=== PATIENT | female | born 1960 | race Caucasian/White ===

== ENCOUNTER 2021-01-22 18:33 | Inpatient (IN) | payer OTHER, MEDICAID, SELFPAY ==
--- NOTE | 2021-01-22 20:30 | DI.MRI.S_ITS ---
PROCEDURE: MR STROKE Pre- and post-contrast brain MRI, non-contrast brain MR angiogram, pre- and postcontrast neck MR angiogram INDICATIONS: CVA TECHNIQUE: Brain: Noncontrast axial T1 spin echo, axial T2 fast spin echo, sagittal and axial FLAIR, coronal T2 fast spin echo, axial gradient echo, axial diffusion and ADC through the brain. After the administration of contrast, axial 3D VIBE of the cranial vasculature and brain. Brain MRA: Non-contrast 3-D time of flight MR angiogram, with multiple ftmslfw-sexzpxxqw-zwlmfnlycl (MIP) reformats performed. Neck MRA: Axial and sagittal TruFISP through the neck. Coronal dynamic MR angiogram during administration of contrast in the arterial and venous phases, with 3-dimenstional wrsbtkc-agiwpbnzz-doyotdzyrm (MIP) reformats constructed from subtraction images. COMPARISON: None. FINDINGS: Image quality: Excellent. BRAIN: CSF spaces: Ventricles are normal in size and shape. Basal cisterns are patent. No extra-axial fluid collections. Brain: No intracranial bleeds or mass effects. Cohen-white matter interface is normal. Abnormal diffusion-weighted signal can be seen involving the deep white matter of the right frontal lobe, as on series 26, image 65. There is associated dark signal seen on the ADC map. Just anterior to this acute or subacute infarct, there is a remote infarction seen, as on series 16, image 15. Brainstem appears normal. Normal intravascular flow voids are present. No abnormal intracranial enhancement. Skull and face: Calvarial marrow signal is normal. Orbits appear normal. Sinuses: Mild mucosal thickening is seen within the inferior maxillary sinuses. Sinuses and mastoids are otherwise clear. Bilateral damian bullosa can be seen. There is moderate rightward nasal septal deviation. BRAIN MR ANGIOGRAM: Anterior circulation: Intracranial internal carotid arteries are normal in size and enhancement. The flow within the paired anterior cerebral arteries is normal and symmetric. There is focal narrowing seen involving the distal right M1 segment, at least 80%. The flow within the middle cerebral arteries is otherwise normal and symmetric. The anterior communicating artery is not well seen. No stenoses, occlusions, or aneurysms. Posterior circulation: The visualized portions of the vertebral arteries demonstrate normal caliber, and join to form a normal appearing basilar artery. The flow within the posterior cerebral arteries is normal and symmetric. No stenoses, occlusions, or aneurysms. NECK MR ANGIOGRAM: Carotids: Great vessels demonstrate a conventional anatomy as they arise from the aortic arch. The origins of the common carotid arteries appear patent. The calibers and courses of both common carotid arteries are normal. The bifurcation regions demonstrate atherosclerotic irregularity. 40-50% narrowing can be seen involving the proximal internal carotid arteries. Posterior circulation: The origins of the vertebral arteries appear patent. More superior portions of both vertebral arteries demonstrate normal course and caliber, and join to form a normal appearing basilar artery. Miscellaneous: Subclavian arteries appear patent. Pre-contrast images through the neck show no soft tissue abnormalities. IMPRESSION: BRAIN MRI: There is an acute or subacute infarction seen involving the deep white matter of the right frontal lobe posteriorly. A chronic infarction can be seen just anterior to this infarction. BRAIN MR ANGIOGRAM: Focal narrowing can be seen involving the distal right M1 segment. NECK MR ANGIOGRAM: Within the arteries of the neck, no hemodynamically significant stenosis can be seen. 40-50% narrowing can be seen involving both proximal internal carotid arteries. Dictated by: Brian Saldaña M.D. on 01/23/2021 at 8:07 Approved by: Brian Saldaña M.D. on 01/23/2021 at 8:14
[2021-01-22 20:34] VITALS: BMI 30.9
--- NOTE | 2021-01-22 20:35 | DI.ECHO.S_ITS ---
[place] +---------+ Hospital +---------+ : : [address] : : : : [id number] : : : : Phone: [phone]+ Echocardiogram Report + + :Name: AZAR WARD Study Date: 01/23/2021 Height: 62 in : :[facility] ReadingLocation: Weight: 169 lb : : Gender: Female BSA: 1.8 m2 : :: 1960 Age: 60 yrs BP: 167/100 mmHg: :Reason For Study: CVA : :Ordering Physician: Jenifer : :Hospitalist Performed By: Trice Page : :Referring: LAURIE SANTANA : + + Interpretation Summary The left ventricle is normal in size and wall thickness. The ejection fraction is estimated to be 60-65%. Diastolic parameters suggest a relaxation abnormality of the left ventricle, consistent with probable normal filling pressures. The right ventricle is severely dilated. Right ventricular systolic function is borderline reduced. The interventricular septum is flattened, consistent with a right ventricular pressure/volume condition. The right ventricular systolic pressure is estimated to be at least 52 mmHg based on an estimated right atrial pressure of 3 mm Hg. The left atrial size is normal. The right atrium is moderately dilated. There is no significant valvular heart disease. The ascending aorta is mildly enlarged. Procedure: A two-dimensional transthoracic echocardiogram with color flow and Doppler was performed. The study quality was technically adequate. A saline contrast injection was performed to assess for cardiac shunting. A contrast injection of Definity was performed to improve assessment of LV function. There is no prior echocardiogram noted for this patient. The patient was in normal sinus rhythm during the exam. Left Ventricle: The left ventricle is normal in size and wall thickness. The ejection fraction is estimated to be 60-65%. The interventricular septum is flattened, consistent with a right ventricular pressure/volume condition. Diastolic parameters suggest a relaxation abnormality of the left ventricle, consistent with probable normal filling pressures. Right Ventricle: The right ventricle is severely dilated. Right ventricular systolic function is borderline reduced. Atria: The left atrial size is normal. The right atrium is moderately dilated. Doppler interrogation and injection of saline echo contrast shows no evidence for an interatrial shunt. Mitral Valve: The mitral valve is normal in structure and function. There is trace mitral regurgitation. Aortic Valve: The aortic valve is trileaflet. The aortic valve opens well. No aortic regurgitation is present. Tricuspid Valve: The tricuspid valve is normal. There is trace tricuspid regurgitation. The right ventricular systolic pressure is estimated to be at least 52 mmHg based on an estimated right atrial pressure of 3 mm Hg. Pulmonic Valve: The pulmonic valve is not well seen, but is grossly normal. There is trace pulmonic regurgitation. There is no significant valvular heart disease. Great Vessels: The aortic root is normal size. The ascending aorta is mildly enlarged. The pulmonary artery is not well visualized, but is probably normal size. The IVC is of normal diameter and collapses greater than 50% with a sniff. This suggests a low right atrial pressure of 3 mm Hg. Pericardium/ Pleura There is a trivial pericardial effusion noted. There is no pleural effusion. MMode/2D Measurements & Calculations LVIDd: 4.0 cm LVOT diam: 2.0 cm LVIDs: 3.3 cm Ao root diam: 3.5 cm FS: 17.7 % asc Aorta Diam: 3.7 cm IVSd: 0.78 cm LVPWd: 0.79 cm LV diallo. diameter/BSA (cm/m^2): 2.2 LV sys. diameter/BSA (cm/m^2): 1.8 LA A2 area: 16.8 cm2 RA long axis: 5.0 cm LA A4 area: 17.5 cm2 RA area: 20.6 cm2 LA length (vol): 5.1 cm RA vol: 72.1 ml LA vol: 48.5 ml RA : 40.5 ml/m2 LA vol index: 27.3 ml/m2 IVC diam: 1.5 cm RVD1 (basal): 4.5 cm TAPSE: 1.6 cm Doppler Measurements & Calculations Ao V2 max: 99.3 cm/sec LVOT Max Vladimir: 53.1 cm/sec Ao V2 mean: 68.2 cm/sec LV V1 max P.1 mmHg Ao max P.9 mmHg LV V1 VTI: 10.4 cm Ao mean P.0 mmHg DIVINE(I,D): 1.9 cm2 Ao V2 VTI: 16.0 cm DIVINE(V,D): 1.6 cm2 sev ratio: 0.65 DIVINE indexed to BSA (cm^2/m^2): 1.1 MV E max vladimir: 51.8 cm/sec TR max vladimir: 351.3 cm/sec MV A max vladimir: 93.6 cm/sec TR max P.4 mmHg MV E/A: 0.55 PA V2 max: 62.7 cm/sec Med Peak E' Vladimir: 3.7 cm/sec PA V2 mean: 40.3 cm/sec E/E' med: 14.1 PA mean P.74 mmHg Lat Peak E' Vladimir: 5.8 cm/sec PA Accel Time: 0.06 sec E/E' lat: 9.0 E/e' average: 11.5 MV dec time: 0.12 sec SV(LVOT): 31.0 ml Reading Physician:04:23 PM
[2021-01-22 20:48] VITALS: BP 167/100; PULSE 97; RESP 20; TEMP 35.8; O2SAT 100
[2021-01-22] MEDS: DOCUSATE 100 MG CAPSULE PO (21:38)
[2021-01-22] MEDS: SODIUM CHLORIDE 0.9% 1,000 ML 75 ML IV (21:38)
--- NOTE | 2021-01-22 22:04 | P.HP_ITS ---
History of Present Illness History of Present Illness Date Patient Seen: 01/22/21 Time Patient Seen: 21:39 Chief complaint: CVA Narrative: Ms. Altagracia Zhu is 60-year-old female who was a direct admit transfer from [facility] with CVA. Patient has no significant past medical history and takes no routine medications aside from vitamins. The patient had an onset of symptoms at approximately 5:00 p.m. on 01/21/2021 which is her last known normal. She describes an abrupt onset of left leg heaviness making it hard to walk and dragging her foot. The patient went to bed in the following morning the leg weakness persisted and progressed t o include left facial droop and left arm weakness. [place] her to seek medical care. The patient denies any antecedent symptoms. She denies complaints of headaches or dizziness, numbness or tingling, nausea or vomiting. The patient denies recent illness, fevers or chills or known COVID-19 exposures. She denies nasal congestion sore throat and denies difficulty chewing or swallowing. She denies complaints of chest pain, palpitations or rapid heartbeat. She reports no shortness of breath cough or wheezing. She denies epigastric or abdominal pain and has had no change in bowel or bladder habits. The patient has been active and independent in all ADLs before these events. Upon arrival to [facility] the patient as temperature 36.5? C, heart rate 94, blood pressure 135/88, respirations 18 saturating 96% on room air. Upon arrival to the acute care floor she is found to have a temperature 96.4?, heart rate of 97, blood pressure 167/100, respiratory rate 20 saturating 100% on room air. CT of the head obtained at [facility] finds no intracranial abnormality, remote right basal ganglion infarct. CT angiogram of the head neck finds no hemodynamically significant stenoses. Twelve lead EKG finds sinus rhythm without ectopy or block, inverted Ts in lead 3 and AVF. Labs from [facility] are reviewed, she has white count of 10.3, hemoglobin of 16.3, hematocrit of 47.3 and platelets of 230. Her coagulation studies within normal range. On chemistries are electrolytes are within normal limits with a BUN of 23 and creatinine 0.8, nonfasting glucose is 109. She has a total bilirubin of 0.7 with an AST of 24, ALT of 20 and alkaline phosphatase 99. NIH scoring at [facility] was 6. The patient is accepted and transferred to [facility] for CVA and MRI services not available at [facility]. Patient History Medical History (Updated 01/23/21 @ 03:08 by REMY Cui) Dupuytrens contracture Scoliosis Surgical History (Updated 01/23/21 @ 03:08 by REMY Cui) History of thumb surgery History of tubal ligation Family & Social History Family History (Updated 01/23/21 @ 06:28 by REMY Cui) Father Stroke Mother Blood disease Social History: household members spouse Prior Living Arrangements House Safety & Behavioral: Feels Safe in Current Yes Environment Been Physically Hurt or No Threatened By a Person Suicidal Ideation Description None Suicide Plan Description No Plan Tobacco & Substance use: Tobacco type cannabis/marijuana Smoking Status Current every day smoker alcohol intake frequency a few times a month Substance Use Type marijuana Meds Home Medications and Allergies Home Medications Medication Instructions Recorded Confirmed Type No Known Home Medications 01/23/21 01/23/21 History Allergies Allergy/AdvReac Type Severity Reaction Status Date / Time No Known Drug Allergies Allergy Verified 01/22/21 20:42 Review of Systems Review of Systems ROS: Yes All systems reviewed with the patient and are negative except as otherwise documented Exam Vital Signs (past 8 hours): - 01/22/21 20:48 Temperature 96.4 F L Pulse Rate 97 H Respiratory Rate 20 Blood Pressure 167/100 H Pulse Oximetry 100 Oxygen Delivery Method Room Air Narrative Exam Narrative: GENERAL APPEARANCE: well developed, overweight female with BMI of 30.9 with neuro deficits. HEENT: Left facial droop, no ptosis, PERRLA, conjunctiva clear, EOMs intact without nystagmus, mucous membranes are moist and pink without lesions or exudate. NECK/THYROID: neck supple, no JVD, no carotid bruit, no thyromegaly, trachea midline. LYMPH NODES: no cervical or supraclavicular lymphadenopathy. SKIN: [place], warm and dry, no visible lesions, rashes, ulcerations or petechiae. HEART: regular rate and rhythm, S1-S2, no murmur, no rubs or gallops, brisk capillary refill, no edema LUNGS: clear to auscultation bilaterally, no coarseness crackles or wheezing, no cough present CHEST: Symmetrical movement, no accessory muscle use, good tidal volume. ABDOMEN: Soft, no distention, no abdominal tenderness, no guarding or peritoneal signs, no organomegaly, no flank or suprapubic tenderness, active bowel tones. BACK: Normal curvature, nontender to palpation, no CVA tenderness on percussion EXTREMITIES: Drift of the left arm but not to bed, drift of the left leg to the bed, unequal chief development officer right greater than left, history of decreased range of motion left 5th finger post trauma. NEUROLOGIC: AAO x4, NIH score of 6, ataxia left arm left leg, sensation intact to light touch without extinction, hearing grossly normal to speech. PSYCH: Alert, responsive, tearful, cooperative. Assessment & Plan Assessment & Plan narrative: This is a 60-year-old female patient with no significant medical history that presents to [facility] with CVA. Her last known normal was 5:00 p.m. on 01/21/2021. Patient felt abrupt left leg weakness dragging of her right foot in the following morning her symptoms extended to the left facial droop and left arm weakness. 1. Acute CVA, left-sided weakness, present on admission, active. -last known normal 5:00 p.m. on 01/22/2020 outside the window for tPA or interventional procedure. -no known risk factors are significant medical history. Patient denies complaints of headaches visual changes or nausea vomiting. -CT of the head finds no acute intracranial processes, reading remote right basal ganglia infarct, CT angiogram of the head neck finds no hemodynamically significant stenoses. -ordered aspirin 324 mg x 1 now and 81 mg daily. -ordered atorvastatin 20 mg daily at bedtime. -will obtain a lipid panel, TSH and hemoglobin A1c -ordered echocardiogram and MRI stroke protocol. -NIH stroke scale every shift, neuro checks every 4 hours. -requested PT OT and ST to consult, evaluate and treat 2. Elevated blood pressure without diagnosis of hypertension, present on admission, active --patient with elevated blood pressure upon arrival at 167/100. -Will allow for permissive hypertension and began treatment in the morning as indicated. VTE prophylaxis: Enoxaparin IV fluid: Normal saline 75 cc/hour Diet: Heart healthy Code status: Full code, patient designates her on significant other Fernando to be her surrogate decision maker. COVID-19 screening: Negative, completed at [facility]. The patient is admitted to the hospital from [facility] due to the severity of her symptoms requiring monitoring, interventions to prevent complications and adverse events. She requires Imaging services not available at the sending facility. The patient is admitted as observation status with expected length of stay is less than 2 midnights COVID-19 COVID-19 status: Negative Result date/Date tested (Pos, Neg/Pending): 01/22/21 Scores GCS Nikolai coma scale eye opening: Spontaneous [place] coma scale verbal response: Orientated Nikolai coma scale motor response: Obey commands Nikolai coma scale total score: 15 NIHSS Level of Conciousness: Alert, keenly responsive Ask month/age: Answers both questions correctly. Open/close eyes, close hand: Performs both tasks correctly Best gaze horizontal: Normal Visual hoff: No visual loss Facial palsy: Minor paralysis, flattened nasolabial fold, asymmetry on smiling Left arm drift: Drifts down, not to bed Right arm drift: No drift for full 10 sec Left leg drift: Some effort against gravity, cannot maintain, drifts down to bed Right leg drift: No drift for full 5 sec Limb ataxia: Present in two limbs Sensory on face/arms/legs: Normal, no sensory loss Best language: No aphasia, normal Dysarthria: Normal Extinction or inattention: No abnormality Total NIH Stroke scale score: 6 Quality MIPS - Admit I confirm the patient?s Advance Care Plan is present, Code status is documented, Surrogate decision maker is in patient?s record [If Yes, STOP here]: Yes
[2021-01-23] VITALS (8 sets, daily range): BP systolic 138–158; BP diastolic 77–108; PULSE 83–96; RESP 16–20; TEMP 36.1–36.6; O2SAT 95–99
[2021-01-23] MEDS: ASPIRIN 325 MG TABLET PO (00:32)
[2021-01-23] MEDS: ATORVASTATIN 20 MG TABLET PO (00:32)
[2021-01-23 07:52] LABS: Add Manual Diff / Slide Review NO; Basophils Absolute Auto 100 /uL (0-100); Basophils Percent Auto 0.6 % (0-2); Eosinophils Absolute Auto 200 /uL (0-450); Eosinophils Percent Auto 2.1 % (2-4); Hematocrit 43.8 % (36-46); Hemoglobin 15.1 g/dL (12.0-16.0); Lymphocytes Absolute Auto 3500 /uL (1100-4500); Lymphocytes Percent Auto 36.4 % (25-40); Mean Corpuscular HGB Conc 34.6 % (30-36); Mean Corpuscular Hemoglobin 31.7 PG (26-34); Mean Corpuscular Volume 91.8 fL (80-100); Monocytes Absolute Auto 800 /uL (0-900); Monocytes Percent Auto 8.5 % (3-14); Neutrophils Absolute Auto 5100 /uL (1500-7000); Neutrophils Percent Auto 52.4 % (50-75); Platelet Count 194 X10^3/uL (150-400); Red Blood Cell Count 4.77 X10^6/uL (4.0-5.2); Red Cell Distribution Width 13.4 % (11.6-14.8); White Blood Cell Count 9.7 X10^3/uL (4.5-11.0)
[2021-01-23 07:59] LABS: Cholesterol 202 mg/dL (140-199); HDL Cholesterol 42 mg/dL (40-60); LDL Cholesterol Calculated 141 mg/dL (<100); Triglycerides 97 mg/dL (35-150)
[2021-01-23 08:02] LABS: Alanine Aminotransferase 18 IU/L (<35); Albumin 3.8 g/dL (3.5-5.0); Albumin Globulin Ratio 1.2 (1.0-2.8); Alkaline Phosphatase 93 U/L (38-126); Aspartate Aminotransferase 27 IU/L (14-36); BUN Creatinine Ratio 29.2 (6-22); Bilirubin Total 0.9 mg/dL (0.2-1.3); Blood Urea Nitrogen 19 mg/dL (7-17); Calcium 9.6 mg/dL (8.4-10.2); Carbon Dioxide 20 mmol/L (22-32); Chloride 110 mmol/L (98-107); Estimated Glomerular Filt Rate > 60.0 mL/min (>60); Globulin 3.2 g/dL (1.7-4.1); Glucose 95 mg/dL (80-110); HEMOLYSIS 20 (0-50); Potassium 4.2 mmol/L (3.4-5.1); Sodium 139 mmol/L (137-145)
[2021-01-23 08:07] LABS: Hemoglobin A1C% w Est Avg Glu 5.5 % (4.0-6.0)
[2021-01-23 08:49] LABS: Thyroid Stimulating Hormone 3.13 uIU/mL (0.47-4.68)
[2021-01-23] MEDS: ASPIRIN EC 81 MG TABLET PO (09:25)
[2021-01-23] MEDS: ENOXAPARIN 40 MG/0.4 ML SYRINGE SUBCUT (09:25)
[2021-01-23] MEDS: DOCUSATE 100 MG CAPSULE PO ×2 (09:25→20:36)
--- NOTE | 2021-01-23 09:34 | OT.IP.EVAL ---
Current Diagnoses Cerebral infarction, unspecified (01/22/21) Past Medical History (Last Updated 01/23/21 @ 03:08 by REMY Cui) Dupuytrens contracture Scoliosis Surgical History (Last Updated 01/23/21 @ 03:08 by REMY Cui) History of thumb surgery History of tubal ligation Occupational Therapy Inpatient Evaluation/Re-Eval M1 PT/OT-IP Prior Functional Status Start: 01/23/21 10:21 Freq: NEEDED Status: Active Protocol: Document 01/23/21 10:22 CGR (Rec: 01/23/21 10:54 R [id number]) Medical Review Prior Functional Status Medical History Reviewed Yes Communication Pt is an effective verbal communicator. Mobility and Gait Pt was IND in all mobility prior to admit. Activities of Daily Living and IADL's Pt was IND in all ADLs prior to admit. Prior Functional Level (Other details) Pt and live on a boat and typically take the dingy to and from the dock. Social History Household Members spouse Number of Floors (Floors) Two Floors Number of Stairs To Enter/Railing? 3 steps up a ladder to get onto the boat then climbs over the railing. 5 steps then 2 down a ladder backwards into the living area. Home Environment High Toilet,Tub/Shower Home Equipment Straight Cane Employment Status Retired Additional Social History Comment Pt and her live on their boat which they typically keep out at sea and use the dingy to get to and from the dock. Pt uses public transit for transportation. M2 OT-IP Current Condition Start: 01/23/21 10:21 Freq: Status: Active Protocol: Document 01/23/21 10:22 CGR (Rec: 01/23/21 10:54 R [id number]) Occupational Therapy Current Condition Current Condition Evaluation Date 01/23/21 Treatment Diagnosis L sided weakness, facial droop Diagnosis Onset Date 01/22/21 M3 OT- IP Subjective and Pain Start: 01/23/21 10:21 Freq: Status: Active Protocol: Document 01/23/21 10:22 CGR (Rec: 01/23/21 10:54 R [id number]) OT- Subjective Occupational Therapy Visit Type Type Initial Evaluation Visit Start Time 09:09 Visit Stop Time 09:34 Total Visit Minutes 25 Occupational Therapy Visit Comments Patient Comments I can't remember Brain's phone number OT Pain Assessment Pain When Pain Assessed At Rest Pain Present Pain Present Denied Pain M4 OT- IP ADL's Start: 01/23/21 10:21 Freq: Status: Active Protocol: Document 01/23/21 10:22 CGR (Rec: 01/23/21 10:54 CGR [id number]) OT WYL-Smqg-[id number] General Evaluation Self-Feeding Ability Standby Assistance Comments OT Self-Feeding Comments Pt states some difficulty d/t IV in her right arm and limited use of her L arm. OT ADL-Grooming Comments OT Grooming Comments Not performed while OT present , pt set up for grooming in chair but this writer editor was called out of the room. OT ADL-Oral Care Comments Oral Care Comments Not performed while OT present , pt set up for oral care in chair but this writer editor was called out of the room. OT ADL-Dressing General Eval Lower Body Dressing Ability Standby Assistance Areas Needing Assistance Socks Comments OT Dressing Comments Pt was able to don socks with extra time seated EOB OT ADL-Toileting General Evaluation Toileting Ability Standby Assistance Comments OT Toileting Comments Pt with only hospital gown on but was able to perform front pericare after urination on BSC after provided with toilet paper. OT ADL-Bathing Comments OT Bathing Comments Not performed M5 OT- IP IADL's Start: 01/23/21 10:21 Freq: Status: Active Protocol: Document 01/23/21 10:22 CGR (Rec: 01/23/21 10:54 CGR [id number]) OT-Instrumental Activities of Daily Living Deficits IADL Deficits Identified Deficits Home Safety Awareness Awareness of Need for Assistance at Home Decreased Awareness Ability to Problem Solve Emergency Unable to Problem Solve Situations Home Safety Comments Pt states that her may be able to help her with entering and exiting the boat. Given her need for assist with transfers today, it is unlikely that pt would be able to perform thoses tasks even with help. Medication Management Medication Management No Deficits Identified Money Management Money Management No Deficits Identified Meal Preparation Meal Preparation Caregiver Provides Assist Spiral Binder Spiral Binder Caregiver Provides Assist Driving Driving Comments Pt and spouse use public transportation M6 OT- IP Functional Cognition Start: 01/23/21 10:21 Freq: Status: Active Protocol: Document 03/27/21 10:22 CGR (Rec: 03/27/21 10:54 R [id number]) Cognitive Factors Limiting Selfcare Function Cognitive Ability Level of Alertness Alert Patient Orientation Name,Age,Birthday,Month,Date, Year,Day of Week,Place, Situation Attention Span Ability Capable of Focused Attention, Unable to Sustain Attention Ability to Follow Commands Able to Follow One Step Commands with Increased Time, Able to Follow One Step Commands with Repetition Cognitive Comments Cognitive Assessment Comments Pt would benefit from formal cog assessment. Pt is emotional labile at this time which may be impacting her appearance of declines to cognition. OT- Vision and Hearing OT- Hearing Assessment OT- Hearing Assessment WFL OT- Vision Assessment Visual Acuity Glasses For Reading Visual Attentiveness WFL Occular Pursuits WFL Visual Convergence WFL M7 OT- IP Mobility and Balance Start: 01/23/21 10:21 Freq: Status: Active Protocol: Document 01/23/21 10:22 CGR (Rec: 01/23/21 10:54 R [id number]) OT- Bed Mobility Assessment Rolling Type of Rolling Roll to Left Level of Assistance Standby Assistance Supine to Sit Supine to Sit Assist Standby Assistance Scooting Scooting to Edge of Bed Standby Assistance OT-Transfer Assessment Sit to and From Stand Sit to and from Stand Moderate Assistance,1 Person Assistance,2 Person Assistance Transfers Transfer Ability Moderate Assistance,1 Person Assistance,2 Person Assistance Technique Transfer Destination Bed,Bedside Commode,Chair Transfer Technique Stand Step Pivot Devices Transfer Assistive Devices Gait Belt,Front Wheeled Walker Comments Mobility Comments Pt able to get self to edge of bed without physical assist but needs extra time. Pt stood with mod a and transferred to [facility] with VC and assist with use of walker (90 degree transfer). Pt is able to initially hold walker with L hand but loses ability with prolonged standing as seen with second transfer from BSC to chair (180 degree transfer) . Pt became fatigued and frustrated with second transfer. Pt was able to scoot self back in chair with VC. OT- Gait Assessment Comments Gait Ability Comments Did not occur OT- Balance Assessment Sitting Balance and Reactions Static Sitting Balance Ability Good Dynamic Sitting Balance Ability Fair M8 OT- IP Objective Assessments Start: 01/23/21 10:21 Freq: Status: Active Protocol: Document 01/23/21 10:22 CGR (Rec: 01/23/21 10:54 CGR [id number]) OT Gross Range of Motion Upper Extremity Range of Motion Assessment Within Functional Limits OT Strength Upper Extremity Strength Assessment Left Impaired Shoulder 3-/5 Elbow 4+/5 Hand 4/5 Hand Fretted Instrument Maker Hand Strength Hand Dominance Right Comments Strength Comments RUE WFL 4+ to 5/5 OT- Coordination Assessment Upper Extremity Finger to Nose Test Left UE Impaired Finger Tapping Test Left UE Impaired Comments Coordination Comments Pt is able to do both with poor coordination and extra time . OT-Muscle Tone Assessment Muscle Tone WNL Yes OT Sensation Assessment Comments Summary Comments Pt states sensation is typical Edema Edema Absent M9 OT- IP Assessment and Plan Start: 01/23/21 10:21 Freq: Status: Active Protocol: Document 01/23/21 10:22 CGR (Rec: 01/23/21 10:54 CGR [id number]) OT Summary Assessment and Plan Potential Rehabilitation Potential Excellent Analytic Complexity at Evaluation Moderate Summary OT Impairments Strength,Balance,Coordination, Functional Cognition, Functional Mobility,Self- Feeding,Grooming,Dressing, Toileting,Bathing,Toilet Transfers,Shower Transfers, Activity Tolerance Progress Towards Goals Progressing Toward Goals Assessment Summary Pt presents as a moderate complexity evaluation s/p likely CVA. Pt presents with L sided weakness that is impacting her ability to mobilize and perform ADLs safely. Pt will benefit from acute rehab. Pt although emotional appears determined with fair to good endurance. Pt is hopeful to return to living on her boat with her . At this time pt's functional mobility is not enough to maneuver onto and around her boat. Pt will continue to benefit from Ot services. Recommend d/c to acute rehab for greatest outcome with this agreeable 60 yo woman. Goals Self-Feeding Goal Independent Grooming Goal Independent Dressing Goal Independent Toileting Goal Independent Bathing Goal Independent Toilet Transfer Goal Independent Shower Transfer Goal Independent Days to Meet Goals 30 Frequency of Treatment Frequency Of Treatment Once a Day Treatment Plan OT Treatment Plan ADL Training,Functional Cognition Training,Functional Mobility,Neuromuscular Re- education,Therapeutic Exercises,Patient/Family Education,Discharge Planning Other Treatment Recommendations and Next Mobility to sink for ADLs or Treatment Focus to toielt as able. Ue therex and coordintion exercises Discharge Recommendations OT Discharge Recommendations Acute Rehab Other Discharge Recommendations Pt appears agreeable and with fair to good endurance to participate in acute rehab. Given her previously IND state living on a boat, acute rehab would likely be her best option for returning to her PLOF. Transportation Needs at Discharge Wheelchair/Cabulance
--- NOTE | 2021-01-23 10:45 | PT.IIE ---
Current Diagnoses Cerebral infarction, unspecified (01/22/21) Surgical History (Last Updated 01/23/21 @ 03:08 by REMY Cui) History of thumb surgery History of tubal ligation Medical History (Last Updated 01/23/21 @ 03:08 by REMY Cui) Dupuytrens contracture Scoliosis Physical Therapy Inpatient Evaluation/Re-Eval M1 PT/OT-IP Prior Functional Status Start: 01/23/21 10:21 Freq: NEEDED Status: Active Protocol: Document 01/23/21 10:22 CGR (Rec: 01/23/21 10:54 CGR [id number]) Medical Review Prior Functional Status Medical History Reviewed Yes Communication Pt is an effective verbal communicator. Mobility and Gait Pt was IND in all mobility prior to admit. Activities of Daily Living and IADL's Pt was IND in all ADLs prior to admit. Prior Functional Level (Other details) Pt and live on a boat and typically take the dingy to and from the dock. Social History Household Members spouse Number of Floors (Floors) Two Floors Number of Stairs To Enter/Railing? 3 steps up a ladder to get onto the boat then climbs over the railing. 5 steps then 2 down a ladder backwards into the living area. Home Environment High Toilet,Tub/Shower Home Equipment Straight Cane Employment Status Retired Additional Social History Comment Pt and her live on their boat which they typically keep out at sea and use the dingy to get to and from the dock. Pt uses public transit for transportation. M1 PT/OT-IP Prior Functional Status Start: 01/23/21 12:44 Freq: NEEDED Status: Active Protocol: Document 01/23/21 10:45 AB (Rec: 01/23/21 13:05 AB [id number]) Medical Review Prior Functional Status Medical History Reviewed Yes Communication able to make needs known Mobility and Gait pt stated that she is independent with all mobilities and ambulation withotu AD Activities of Daily Living and IADL's per OT's notePt was IND in all ADLs prior to admit. Prior Functional Level (Other details) Pt and live on a boat and typically take the dingy to and from the dock. Social History Household Members spouse Number of Floors (Floors) Two Floors Number of Stairs To Enter/Railing? pt stated that she sits on the edge of the boat and turns around seated to get in to the cock put and then walks to the stairs and goes down backwards 5 steps with R rail descending Home Environment High Toilet,Tub/Shower,Built- In Shower Seat Home Equipment Straight Cane,Hand Held Shower Employment Status Retired Additional Social History Comment Pt and her live on their boat which they typically keep out at sea and use the dingy to get to and from the dock. Pt uses public transit for transportation. pt has a high bed and uses a step stool to get into the bed M2 PT-IP Current Condition Start: 01/23/21 12:44 Freq: NEEDED Status: Active Protocol: Document 01/23/21 10:45 AB (Rec: 01/23/21 13:05 AB [id number]) Physical Therapy Current Condition Current Condition Evaluation Date 01/23/21 Treatment Diagnosis CVA L sided weakness; difficulty in walking Onset Date 01/22/21 Precautions Other Precautions falls M3 PT-IP Subjective Start: 01/23/21 12:44 Freq: NEEDED Status: Active Protocol: Document 01/23/21 10:45 AB (Rec: 01/23/21 13:05 AB [id number]) Subjective Physical Therapy Visit Type Type Initial Evaluation Visit Start Time 10:45 Visit Stop Time 11:12 Total Visit Minutes 27 Number of FLUX MIXER Visits 0 Physical Therapy Visit Comments Patient Comments pt is agreeable to do PT Therapy Pain Assessment Pain Present Pain Present Denied Pain M4 PT-IP Mobility and Gait Start: 01/23/21 12:44 Freq: NEEDED Status: Active Protocol: Document 01/23/21 10:45 AB (Rec: 01/23/21 13:05 AB [id number]) PT-Bed Mobility Assessment Supine to Sit Supine to Sit Minimal Assistance Sit to Supine Sit to Supine Moderate Assistance,Maximum Assistance,1 Person Assistance PT-Transfer Assessment Sit to and From Stand Sit to and from Stand Maximum Assistance,1 Person Assistance,Use of Upper Extremities Equipment Transfer Assistive Device Gait Belt,Front Wheeled Walker Orthotic/Prosthetic Devices or Brace: No Transfers Transfer Destination Bed,Chair Transfer Technique Stand Step Pivot Transfer Ability Level of Assist Maximum Assistance,1 Person Assistance,2 Person Assistance ,Use of Upper Extremities Comments Mobility Comments pt sitting on chair and agreeable to do PT. pt with L sided inattention. completed sit to stand max A and cues. required assist with LUE placement to FWW. (+) L knee buckling and required max A for stability. completed step transfer max A x 1-2 using FWW and max cues. continues to have L knee buckling with each step requiring max A. completed sit to supine mod to max A with LLE elevation to bed. completed supine to sit min A and cues. agreed to sit up on chair again. completed sit to stand max A and cues and max A x 1-2 for step transfer using FWW. positioned on chair. call light and table placed within reach. informed pt regarding further rehab. spouse in room and also is aware of recommendation. Gait Assessment Comments Gait Comments unable at this time. PT-Balance Assessment Sitting Balance and Reactions Static Sitting Balance Ability Good Dynamic Sitting Balance Ability Fair Standing Balance and Reactions Static Standing Balance Ability Poor Dynamic Standing Balance Ability Poor Device Used FWW M5 PT-IP Objective Assessments Start: 01/23/21 12:44 Freq: NEEDED Status: Active Protocol: Document 01/23/21 10:45 AB (Rec: 01/23/21 13:05 AB [id number]) Orientation Orientation/Cognition Orientation Name Language Function Ability No Deficits Noted Safety Awareness Decreased Safety Awareness Gross Range of Motion Lower Extremity ROM Assessment Within Functional Limits Strength Lower Extremity Strength Assessment Left Impaired Hip 3+/5 Knee 3-/5 M6 PT-IP Treatment Start: 01/23/21 12:44 Freq: NEEDED Status: Active Protocol: Document 01/23/21 10:45 AB (Rec: 01/23/21 13:05 AB [id number]) Physical Therapy Treatment Education Education Provided Safety M7 PT-IP Assessment and Plan Start: 01/23/21 12:44 Freq: NEEDED Status: Active Protocol: Document 01/23/21 10:45 AB (Rec: 01/23/21 13:05 AB [id number]) PT Summary Assessment and Plan Potential Rehabilitation Potential Good Status of Condition at Evaluation Evolving Summary Impairments Pain,ROM,Strength,Balance, Coordination,Sensation,Tone, Cognition,Bed Mobility, Transfers,Gait,Activity Tolerance Assessment Summary pt requiring max A x1-2 with transfers using FWW with (+) L knee buckling during standing requiring max A for stability . pt required repeated instruction and is easily distracted affecting mobility safety. pt will require acute rehab to improve strength and mobility. Goals Bed Mobility Goal Contact Guard Assistance Transfer Goal Minimal Assistance,Front Wheeled Walker Gait Goal Minimal Assistance,Front Wheel Walker Gait Distance 75 Other Goals improve ambulation using FWW CGA 125 ft up/down 5 steps R rail descending backwards CGA Days to Meet Goals 10 Frequency of Treatment Frequency Of Treatment Twice a Day Treatment Plan Physical Therapy Treatment Plan Bed Mobility Training,Transfer Training,Gait Training, Therapeutic Exercise,Balance Retraining,Discharge Planning, Hot or Cold Pack,Neuromuscular Re-ed,Coordination Retraining ,Manual Therapy Recommendations To Nursing Amount of Assist Needed 2 Person Assist Discharge Recommendations PT Discharge Recommendations Acute Rehab Transportation Needs at Discharge Wheelchair/Cabulance
--- NOTE | 2021-01-23 13:13 | ST.IPIE ---
Visit Care Team Role Provider Type Grabiel Gordon DO Admit Provider Physician Attending Provider Referring Provider Specialty: Internal Medicine Address: [address] [place] [address], [id number] Email: Current Diagnoses Cerebral infarction, unspecified (01/22/21) Past Medical History (Last Updated 01/23/21 @ 03:08 by REMY Cui) Dupuytrens contracture (Medical) Scoliosis (Medical) ST IP Initial Evaluation Report SCLEROSCOPE TESTER Motor Speech Evaluation Start: 01/23/21 12:51 Freq: Status: Active Protocol: Document 01/23/21 12:52 MG (Rec: 01/23/21 13:13 MG [id number]) Motor Speech Evaluation Session Time Visit Start Time 11:40 Visit Stop Time 12:20 Total Visit Minutes 40 Visit Information Visit Number 1 Setting Setting Acute Care Next Note Type Next Note Type Treatment Note Patient History Source: Citizen Of [place] [employer] ([employer]). Patient History Pt is a 60-year-old female who was a direct admit transfer from [facility] with CVA. Patient has no significant past medical history and takes no routine medications aside from vitamins. The patient had an onset of symptoms at approximately 5:00 p.m. on which is her last known normal. She describes an abrupt onset of left leg heaviness making it hard to walk and dragging her foot. The patient went to bed in the following morning the leg weakness persisted and progressed to include left facial droop and left arm weakness. The patient was taken [facility] by her to seek medical care. The patient denies any antecedent symptoms . She denies complaints of headaches or dizziness, numbness or tingling, nausea or vomiting. The patient denies recent illness, fevers or chills or known COVID-19 exposures. At this time, pt continues to display left sided weakness. Per nurse, pt was observed to have some slurred speech last night, but had since resolved. No concerns of swallowing or language were noted. Mental Status Mental Status Alert,Responsive,Cooperative, Lethargic Subjective Observations Subjective Pt was seen sitting upright in chair at bedside with Fernando present in the room. Pt was agreeable to a speech/ language evaluation at that time. Of note, left facial droop was noted and a slight slur of speech. Pt reported that a missing tooth affects her speech and she had no concerns relating to speech/ language/cognition/swallowing at this time. At times, pt would show an emotional response (e.g., teary) during the evaluation at intermittent times. Oral Motor Lips Function Mild Impairment Pucker Reduced on left side Retraction Reduced on left side Alternating pucker/retraction Reduced motion, slow speed Tongue Function WFL Jaw Function WFL Soft Palate Function WFL Respiration/Phonation Phonation Quality WFL Conversation Quality WFL,Hoarse Diadochokinetic Rates P^ Quality WFL T^ Quality Mild Impairment Comments Slow rate, uncoordinated movements K^ Quality Mild Impairment Comments Slow rate, uncoordinated movements P^T^K^ Quality Mild Impairment Comments Slow rate, uncoordinated movements Speech Intelligibility Awareness/Strategy Use Description Type of awareness/use Uses intermittently Findings Details Motor Speech Function Mild Impairment Type of Impairment Mild dysarthria, mild cognitive communication deficits Assessment Details Assessment Through formal OME, SCLEROSCOPE TESTER noted left sided weakness though pt appears to compensate well and is 100% intelligible when communicating with others. Pt was able to follow directions and answer questions appropriately throughout evaluation. No receptive/ expressive language deficits are noted at this time. Of note, SCLEROSCOPE TESTER administered the SLUMS assessment to get a further understanding of pt's cognitive communication abilities. Pt scored a 20/30, indicating there may be some underlying deficits affecting the pt's ability to effectively communicate with others and retain important information. Pt's biggest weakness is problem solving strategies and short term memory retention. SCLEROSCOPE TESTER discussed cognitive communication intervention and provided resources for pt and family. SCLEROSCOPE TESTER also assessed the pt's swallowing abilities while pt ate lunch, which consisted of an egg salad sandwich, water, and chicken noodle soup. SCLEROSCOPE TESTER observed the to throat clear x2 during entire meal. SCLEROSCOPE TESTER went over safe swallowing protocols, which pt demonstrated successfully with no overt s/sx of aspiration occuring. Pt is clear for regular/thin diet if safe swallow protocols are followed . SCLEROSCOPE TESTER gave pt safe swallow guidelines and went over strategies with pt and family. Prognosis Rehabilitation Potential Good Recommendations Treatment Recommended Yes Frequency x1-x2 Therapy Recommendations ST is recommended at this time to monitor pt's diet, see if pt is following safe swallowing protocol, and provide cognitive communication intervention. Short Term Goals Pt will participate in education re: safe swallow, cognitive communication deficits Pt will use cognitive communication strategies with minimal verbal reminders to effectively communicate wants/ needs and relay information to others. Sewage Screen Operator Goals Pt will tolerate the least restrictive diet without demonstrating overt s/sx of aspiration. Pt will use cognitive communication strategies independently to effectively communicate wants/needs and relay information to others. Patient/Family Education Education Described results of evaluation,Patient Understanding,Family Understanding,Patient Demonstration,Patient Needs More Info,Family Needs More Info
--- NOTE | 2021-01-23 13:28 | PT-IP ANOTE ---
Pt sleeping, woke easily but refused tx due to fatigue and wanting to rest. RN informed and PT with check back with pt in the morning.
--- NOTE | 2021-01-23 14:24 | PC.NURSE ---
UA order cancelled per MD, patient denies urinary symptoms.
--- NOTE | 2021-01-23 14:28 | PM.PN.1 ---
Subjective Subjective Date Patient Seen: 01/23/21 Time Patient Seen: 10:28 Interval history: Today she feels similar to yesterday. She is still having left arm weakness, and left leg weakness. She doesn't notice slurred speech. She denies any numbness. She has no other complaints. Exam Vital Signs (past 8 hours): - 01/23/21 07:14 01/23/21 08:35 01/23/21 12:00 Temperature 98 F 97.8 F Pulse Rate 90 83 92 H Respiratory Rate 16 16 16 Blood Pressure 142/77 H 158/90 H Pulse Oximetry 95 97 97 Oxygen Delivery Method Room Air Oxygen Flow Rate 0 Narrative Exam Narrative: GENERAL APPEARANCE: no acute distress HEENT: Left facial droop, no ptosis, PERRLA, conjunctiva clear, EOMs intact without nystagmus, mucous membranes are moist and pink without lesions or exudate. NECK/THYROID: neck supple, no JVD, no thyromegaly, trachea midline. SKIN: [place], warm and dry, no visible lesions, rashes, ulcerations or petechiae. HEART: regular rate and rhythm, S1-S2, no murmur, no rubs or gallops, no edema LUNGS: clear to auscultation bilaterally, no coarseness crackles or wheezing, no cough present CHEST: Symmetrical movement, no accessory muscle use, good tidal volume. ABDOMEN: Soft, no distention, no abdominal tenderness, no guarding or peritoneal signs, no organomegaly, no flank or suprapubic tenderness, active bowel tones. EXTREMITIES: Drift of the left arm, unequal health unit supervisor right greater than left NEUROLOGIC: AAO x4, has 4/5 strength in upper left extremity at shoulder, biceps, wrist and to squeeze, right upper extremity normal strength, right lower extremity normal strength, left lower extremity is 3-4/5 strength as she can lift left leg on own but only briefly and can not hold it off bed, decreased strength of plantar and dorsal muscles on left foot sensation intact to light touch without extinction, hearing grossly normal to speech. PSYCH: Alert, cooperative, pleasant Objective Labs Result Diagrams: 01/23/21 07:30 01/23/21 07:30 Labs: Laboratory Results - last 24 hr 01/23/21 01/23/21 01/23/21 07:30 07:30 07:30 WBC 9.7 RBC 4.77 Hgb 15.1 Hct 43.8 MCV 91.8 MCH 31.7 MCHC 34.6 RDW 13.4 Plt Count 194 Neut % (Auto) 52.4 Lymph % (Auto) 36.4 [place] % (Auto) 8.5 Eos % (Auto) 2.1 Baso % (Auto) 0.6 Neut # (Auto) 5100 Lymph # (Auto) 3500 [place] # (Auto) 800 Eos # (Auto) 200 Baso # (Auto) 100 Sodium 139 Potassium 4.2 Chloride 110 H Carbon Dioxide 20 L BUN 19 H Creatinine 0.65 Estimated GFR > 60.0 BUN/Creatinine Ratio 29.2 H Glucose 95 Hemoglobin A1c 5.5 Calcium 9.6 Magnesium 2.0 Total Bilirubin 0.9 AST 27 ALT 18 Alkaline Phosphatase 93 Total Protein 7.0 Albumin 3.8 Globulin 3.2 Albumin/Globulin Ratio 1.2 Triglycerides Cholesterol LDL Cholesterol, Calc HDL Cholesterol TSH 01/23/21 01/23/21 07:30 07:30 WBC RBC Hgb Hct MCV MCH MCHC RDW Plt Count Neut % (Auto) Lymph % (Auto) [place] % (Auto) Eos % (Auto) Baso % (Auto) Neut # (Auto) Lymph # (Auto) [place] # (Auto) Eos # (Auto) Baso # (Auto) Sodium Potassium Chloride Carbon Dioxide BUN Creatinine Estimated GFR BUN/Creatinine Ratio Glucose Hemoglobin A1c Calcium Magnesium Total Bilirubin AST ALT Alkaline Phosphatase Total Protein Albumin Globulin Albumin/Globulin Ratio Triglycerides 97 Cholesterol 202 H LDL Cholesterol, Calc 141 H HDL Cholesterol 42 TSH 3.13 [facility] Medical History (Updated 01/23/21 @ 03:08 by REMY Cui) Dupuytrens contracture Scoliosis Surgical History (Updated 01/23/21 @ 03:08 by REMY Cui) History of thumb surgery History of tubal ligation Family History (Updated 01/23/21 @ 06:28 by REMY Cui) Father Stroke Mother Blood disease Social History household members: spouse Smoking Status: Current every day smoker Assessment & Plan Assessment & Plan narrative: 60-year-old female patient with no significant medical history that presents to [facility] with CVA. Her last known normal was 5:00 p.m. on 01/21/2021. Patient felt abrupt left leg weakness, the following morning her symptoms extended to the left facial droop and left arm weakness. 1. Acute CVA, left-sided weakness, present on admission, active. -last known normal 5:00 p.m. on 01/22/2020 outside the window for tPA or interventional procedure. -no known risk factors are significant medical history. Patient denies complaints of headaches visual changes or nausea vomiting. -CT of the head finds no acute intracranial processes -MRI shows posterior right fronal lobe infarct with narrowing at distal right M1 segment -loaded with aspirin on admission, now continue 81 mg daily. -ordered atorvastatin 80 mg daily at bedtime. -has elevated cholesterol, normal A1c -ECHO pending, but likely this is due to stenosis of intracranial arteries -NIH stroke scale every shift, neuro checks every 4 hour. -requested PT OT and ST to consult, evaluate and treat 2. Elevated blood pressure without diagnosis of hypertension, present on admission, active --patient with elevated blood pressure upon arrival at 167/100. -Will allow for permissive hypertension for now during acute phase of stroke, may need antihypertensive on DC. VTE prophylaxis: Enoxaparin IV fluid: None Diet: Heart healthy Code status: Full code, patient designates her on significant other Fernando to be her surrogate decision maker. COVID-19 screening: Negative, completed at [facility]. The patient is admitted to the hospital from [facility] due to the severity of her symptoms requiring monitoring, interventions to prevent complications and adverse events. She requires Imaging services not available at the sending facility. The patient is admitted as observation status with expected length of stay is less than 2 midnights
--- NOTE | 2021-01-23 15:32 | CM.IDA ---
Initial DCP Assessment Note Patient is a 60 yo female, resident of [place], currently living on a boat that she and spouse often have out in the water. Patient presented to [facility] and their MRI machine was down so patient was directly transferred to , and does now have a confirmed acute CVA PCP: Does not have Payer: [facility] Met w/patient this morning to introduce role. Patient able to tell me she and spouse live on a boat, she is indp and active at baseline, has had no medical needs up until now, and does not know if or what she has for medical insurance. Patient bursts into tears and states she does not remember her , Fernando's cell number. Reviewed medical chart sent from [facility], found patient's [employer] policy #[id number] and spouse Fernando's number P# [phone]. Contacted Fernando and transferred him into patient's room. Fernando later in patient's room. Both patient and spouse rely on public transportation, neither drive. 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 Meanwhile, [facility] P# [phone] F# [phone], Alida has beds and will review referral w/medical officer psychiatry Dr Monteiro. Auth will need to be obtained from [facility] which will not be done until Monday01.25.21. Faxed clinical to include admission sheet from [facility] ([facility] admitting team not available Monday to update IH chart), PT/OT/DRILLER'S OFFSIDER notes, med list, no none home meds. According to [facility] acute rehab, Dr Monteiro feels patient is a great candidate and Alida will begin auth request when [facility] returns Monday Unable to return to patient's room to discuss plan w/spouse, hopefully DCP team can do this over next 24-48 hrs. AKIKO Hope Discharge Planning/Care Management CM Discharge Assessment Start: 01/23/21 15:28 Freq: Status: Active Protocol: Document 01/23/21 15:28 XIN (Rec: 01/23/21 15:32 [id number]) Discharge Planning Assessment Assigned [employer] Preparation Worker AKIKO Orosco DPOA/Assigned Designee Name Fernando Loredo, spouse Contact Information [phone] Advance Directives? No History Provided By Patient,Medical Record Comment Boat Household Members spouse Type of transporation used prior to Public Transportation admit Independent with ADL's Yes Is patient alert and oriented? No: At baseline, yes Comment Acute Rehab vs SNF Barriers to Discharge Yes Comment Lives on a boat, confirmed CVA , needs assist Referrals Initiated Other Additional Comment Acute Rehab Whiteboard Updated in Patient Room with Yes name and ext. # of [employer] Preparation Worker
[2021-01-23 18:30] LABS: Troponin I < 0.012 ng/mL (0.01-0.034)
--- NOTE | 2021-01-23 18:57 | PC.NURSE ---
Addendum entered by Clarissa Sneed R.N. 01/23/21 22:43: Pt requests assistance to reposition in bed. This was done. Easily tearful. Reassured and allowed to verbalize. Bedpan use this evening shift. Addendum entered by Clarissa Sneed R.N. 01/23/21 19:32: REMY Doran and Dr. Maria were made aware of pt's statement of feeling as though getting worse and unable to move LLE independently without using own hands to maneuver leg. Per REMY Doran, pt was informed symptoms can wax and wane. Requested order for tylenol as pt c/o of feeling all over uncomfortable. BL calf scd's placed. REMY Doarn reports will speak with pt this evening as hospitalist informed pt very tearful/labile with emotions. Original Note: Pt lying on left side in bed with head elevated. Has taken evening meal well. Denies any difficulty with swallow. Pt is alert and oriented with slightly slurred speech. Profound weakness left arm and left leg. Pt is able to move these extremities slightly, but is unable to lift LLE off of bed unassisted. Pt reports feeling very fatigued. Is easily tearful as NIH is conducted @ bedside. Pt was offered listening ear and sandwich wrapper visit, which pt declined. Assisted pt to position of comfort in bed as per request and warm blanket applied. Call light and phone available to right hand/arm. Bed alarm is set. Pt was encouraged to call for needs or desires as staff is here to help in any way. Pt verbalizes understanding and agreement.
[2021-01-23] MEDS: ACETAMINOPHEN 325 MG TABLET 650 MG PO (19:50)
[2021-01-23] MEDS: ATORVASTATIN 20 MG TABLET 80 MG PO (20:36)
[2021-01-23] MEDS: CLOPIDOGREL 75 MG TABLET PO (20:36)
[2021-01-23] MEDS: SODIUM CHLORIDE 0.9% FLUSH 10 ML IV (20:40)
[2021-01-24] VITALS (7 sets, daily range): BP systolic 129–161; BP diastolic 76–114; PULSE 72–90; RESP 16–18; TEMP 35.6–36.9; O2SAT 95–99
[2021-01-24] MEDS: SODIUM CHLORIDE 0.9% FLUSH 10 ML IV ×2 (08:37→18:00)
[2021-01-24] MEDS: ASPIRIN EC 81 MG TABLET PO (08:37)
[2021-01-24] MEDS: ENOXAPARIN 40 MG/0.4 ML SYRINGE SUBCUT (08:37)
[2021-01-24] MEDS: DOCUSATE 100 MG CAPSULE PO (08:37)
--- NOTE | 2021-01-24 10:28 | PT.IPTN ---
Current Diagnoses Cerebral infarction, unspecified (01/22/21) Physical Therapy Treatment Note M2 PT-IP Current Condition Start: 01/23/21 12:44 Freq: NEEDED Status: Active Protocol: Document 01/23/21 10:45 AB (Rec: 01/23/21 13:05 AB [id number]) Physical Therapy Current Condition Current Condition Evaluation Date 01/23/21 Treatment Diagnosis CVA L sided weakness; difficulty in walking Onset Date 01/22/21 Precautions Other Precautions falls M3 PT-IP Subjective Start: 01/23/21 12:44 Freq: NEEDED Status: Active Protocol: Document 01/24/21 09:01 LJ (Rec: 01/24/21 10:28 LJ [id number]) Subjective Physical Therapy Visit Type Type Treatment Note Visit Start Time 09:01 Visit Stop Time 09:25 Total Visit Minutes 24 Number of THERAPIST PHYSICAL Visits 1 Physical Therapy Visit Comments Patient Comments pt agreeable to do PT Therapy Pain Assessment Pain Present Pain Present Denied Pain M4 PT-IP Mobility and Gait Start: 01/23/21 12:44 Freq: NEEDED Status: Active Protocol: Document 01/24/21 09:01 LJ (Rec: 01/24/21 10:28 LJ [id number]) PT-Bed Mobility Assessment Supine to Sit Supine to Sit Contact Guard Assistance Scooting Scooting to Edge of Bed Minimal Assistance PT-Transfer Assessment Sit to and From Stand Sit to and from Stand Moderate Assistance,1 Person Assistance,Use of Upper Extremities Equipment Transfer Assistive Device Gait Belt Orthotic/Prosthetic Devices or Brace: No Transfers Transfer Destination Chair,Bedside Commode Transfer Technique Stand Step Pivot Transfer Ability Level of Assist Moderate Assistance,1 Person Assistance,Use of Upper Extremities Comments Mobility Comments Pt in bed upon arrival. With head of bed elevated, she was able to swing both legs off bed with assist with left leg. Pt required assistance with clearing the bed rail with left LE to scoot to edge of bed and also used bed cane with right UE. Pt then reached with right UE to [facility] and stood with ModA from therapist . She completed stand step pivot transfer to [facility]. Voided then performed independent pericare. Pt then did stand step pivot to chair which was 90 degrees orientation to [facility]. Pt had a less than controlled descent into chair and required assistance with scooting left side of body to the back of the chair. Pt was given all needs within reach and left reclining in chair. Gait Assessment Comments Gait Comments unable at this time. M5 PT-IP Objective Assessments Start: 01/23/21 12:44 Freq: NEEDED Status: Active Protocol: Document 01/23/21 10:45 AB (Rec: 01/23/21 13:05 AB [id number]) Orientation Orientation/Cognition Orientation Name Language Function Ability No Deficits Noted Safety Awareness Decreased Safety Awareness Gross Range of Motion Lower Extremity ROM Assessment Within Functional Limits Strength Lower Extremity Strength Assessment Left Impaired Hip 3+/5 Knee 3-/5 M6 PT-IP Treatment Start: 01/23/21 12:44 Freq: NEEDED Status: Active Protocol: Document 01/24/21 09:01 LJ (Rec: 01/24/21 10:28 LJ [id number]) Physical Therapy Treatment Exercises Exercises Ankle Pumps,Gluteal Sets,Quad Sets Education Education Provided Safety M7 PT-IP Assessment and Plan Start: 01/23/21 12:44 Freq: NEEDED Status: Active Protocol: Document 01/24/21 09:01 SANDEEP (Rec: 01/24/21 10:28 LJ [id number]) PT Summary Assessment and Plan Potential Rehabilitation Potential Good Status of Condition at Evaluation Evolving Summary Impairments Pain,ROM,Strength,Balance, Coordination,Sensation,Tone, Cognition,Bed Mobility, Transfers,Gait,Activity Tolerance Assessment Summary Pt able to perform stand step pivot but unable to maintain weight on LLE for a significant amount of time. She is able to stand with assistance for short amount of time but not steady on her feet for ambulation. She will require acute rehab to improve strength and mobility to return home. Goals Bed Mobility Goal Contact Guard Assistance Transfer Goal Minimal Assistance,Front Wheeled Walker Gait Goal Minimal Assistance,Front Wheel Walker Gait Distance 75 Other Goals improve ambulation using FWW CGA 125 ft up/down 5 steps R rail descending backwards CGA Days to Meet Goals 10 Frequency of Treatment Frequency Of Treatment Twice a Day Treatment Plan Physical Therapy Treatment Plan Bed Mobility Training,Transfer Training,Gait Training, Therapeutic Exercise,Balance Retraining,Discharge Planning, Hot or Cold Pack,Neuromuscular Re-ed,Coordination Retraining ,Manual Therapy
--- NOTE | 2021-01-24 11:18 | OT.IP.TRT ---
Current Diagnoses Cerebral infarction, unspecified (01/22/21) Occupational Therapy Treatment Note M2 OT-IP Current Condition Start: 01/23/21 10:21 Freq: Status: Active Protocol: Document 01/23/21 10:22 CGR (Rec: 01/23/21 10:54 CGR [id number]) Occupational Therapy Current Condition Current Condition Evaluation Date 01/23/21 Treatment Diagnosis L sided weakness, facial droop Diagnosis Onset Date 01/22/21 M3 OT- IP Subjective and Pain Start: 01/23/21 10:21 Freq: Status: Active Protocol: Document 01/24/21 12:16 CGR (Rec: 01/24/21 12:30 CGR [id number]) OT- Subjective Occupational Therapy Visit Type Type Progress Note Visit Start Time 10:51 Visit Stop Time 11:18 Total Visit Minutes 27 Notes Pt declines out of bed activity after getting up with P.T. earlier and returning to bed. M4 OT- IP ADL's Start: 01/23/21 10:21 Freq: Status: Active Protocol: Document 01/23/21 10:22 CGR (Rec: 01/23/21 10:54 CGR [id number]) OT [id number] General Evaluation Self-Feeding Ability Standby Assistance Comments OT Self-Feeding Comments Pt states some difficulty d/t IV in her right arm and limited use of her L arm. OT ADL-Grooming Comments OT Grooming Comments Not performed while OT present , pt set up for grooming in chair but this specification writer was called out of the room. OT ADL-Oral Care Comments Oral Care Comments Not performed while OT present , pt set up for oral care in chair but this specification writer was called out of the room. OT ADL-Dressing General Eval Lower Body Dressing Ability Standby Assistance Areas Needing Assistance Socks Comments OT Dressing Comments Pt was able to don socks with extra time seated EOB OT ADL-Toileting General Evaluation Toileting Ability Standby Assistance Comments OT Toileting Comments Pt with only hospital gown on but was able to perform front pericare after urination on BSC after provided with toielt paper. OT ADL-Bathing Comments OT Bathing Comments Not performed M5 OT- IP IADL's Start: 01/23/21 10:21 Freq: Status: Active Protocol: Document 01/23/21 10:22 CGR (Rec: 01/23/21 10:54 CGR [id number]) OT-Instrumental Activities of Daily Living Deficits IADL Deficits Identified Deficits Home Safety Awareness Awareness of Need for Assistance at Home Decreased Awareness Ability to Problem Solve Emergency Unable to Problem Solve Situations Home Safety Comments Pt states that her may be able to help her with entering and exiting the boat. Given her need for assist with transfers today, it is unlikely that pt would be able to perform thoses tasks even with help. Medication Management Medication Management No Deficits Identified Money Management Money Management No Deficits Identified Meal Preparation Meal Preparation Caregiver Provides Assist Director Of Casework Director Of Casework Caregiver Provides Assist Driving Driving Comments Pt and spouse use public transportation M6 OT- IP Functional Cognition Start: 01/23/21 10:21 Freq: Status: Active Protocol: Document 01/24/21 12:16 CGR (Rec: 01/24/21 12:30 CGR [id number]) Cognitive Factors Limiting Selfcare Function Cognitive Ability Level of Alertness Alert Attention Span Ability Unable to Focus,Unable to Sustain Attention Ability to Follow Commands Able to Follow One Step Commands with Increased Time, Able to Follow One Step Commands with Repetition Safety Awareness Underestimates Need for Assistance Cognitive Comments Cognitive Assessment Comments Pt had difficulty keeping on topic and following simple commands. Per ST, Pt scored a 20/30 on the SLUMS on 01/23/21. M7 OT- IP Mobility and Balance Start: 01/23/21 10:21 Freq: Status: Active Protocol: Document 01/23/21 10:22 CGR (Rec: 01/23/21 10:54 R [id number]) OT- Bed Mobility Assessment Rolling Type of Rolling Roll to Left Level of Assistance Standby Assistance Supine to Sit Supine to Sit Assist Standby Assistance Scooting Scooting to Edge of Bed Standby Assistance OT-Transfer Assessment Sit to and From Stand Sit to and from Stand Moderate Assistance,1 Person Assistance,2 Person Assistance Transfers Transfer Ability Moderate Assistance,1 Person Assistance,2 Person Assistance Technique Transfer Destination Bed,Bedside Commode,Chair Transfer Technique Stand Step Pivot Devices Transfer Assistive Devices Gait Belt,Front Wheeled Walker Comments Mobility Comments Pt able to get self to edge of bed without physical assist but needs extra time. Pt stood with mod a and transfered to [facility] with VC and assist with use of walker (90 degree transfer). Pt is able to initially hold walker with L hand but loses ability with prolonged standing as seen with second transfer from [facility] to chair (180 degree transfer) . Pt became fatigued and frustrated with second transfer. Pt was able to scoot self back in chair with VC. OT- Gait Assessment Comments Gait Ability Comments Did not occur OT- Balance Assessment Sitting Balance and Reactions Static Sitting Balance Ability Good Dynamic Sitting Balance Ability Fair M8 OT- IP Objective Assessments Start: 01/23/21 10:21 Freq: Status: Active Protocol: Document 01/23/21 10:22 CGR (Rec: 01/23/21 10:54 CGR [id number]) OT Gross Range of Motion Upper Extremity Range of Motion Assessment Within Functional Limits OT Strength Upper Extremity Strength Assessment Left Impaired Shoulder 3-/5 Elbow 4+/5 Hand 4/5 Hand Steel Detailer Strength Hand Dominance Right Comments Strength Comments RUE WFL 4+ to 5/5 OT- Coordination Assessment Upper Extremity Finger to Nose Test Left UE Impaired Finger Tapping Test Left UE Impaired Comments Coordination Comments Pt is able to do both with poor coordition and extra time . OT-Muscle Tone Assessment Muscle Tone WNL Yes OT Sensation Assessment Comments Summary Comments Pt states sensation is typical Edema Edema Absent M9 OT- IP Assessment and Plan Start: 01/23/21 10:21 Freq: Status: Active Protocol: Document 01/24/21 12:16 CGR (Rec: 01/24/21 12:30 CGR [id number]) OT Summary Assessment and Plan Potential Rehabilitation Potential Excellent Analytic Complexity at Evaluation Moderate Summary OT Impairments Strength,Balance,Coordination, Functional Cognition, Functional Mobility,Self- Feeding,Grooming,Dressing, Toileting,Bathing,Toilet Transfers,Shower Transfers, Activity Tolerance Progress Towards Goals Progressing Toward Goals Assessment Summary Pt presents as a moderate complexity evalution s/p ananya CVA. Pt presents with L sided weakness that is impacting her ability to mobilize and perform ADLs safely. Pt participated in UE therex to the LUE 10 reps to hand, wrist, forearm, elbow, shld fx and shld shrugs. Pt needed assist for maintaining stability during exercises but can perform full/near full ROM for all exercises without physical assist. Pt will continue to benefit from Ot services. Recommend d/c to acute rehab. Goals Self-Feeding Goal Independent Grooming Goal Independent Dressing Goal Independent Toileting Goal Independent Bathing Goal Independent Toilet Transfer Goal Independent Shower Transfer Goal Independent Days to Meet Goals 30 Frequency of Treatment Frequency Of Treatment Once a Day Treatment Plan OT Treatment Plan ADL Training,Functional Cognition Training,Functional Mobility,Neuromuscular Re- education,Therapeutic Exercises,Patient/Family Education,Discharge Planning Other Treatment Recommendations and Next Mobility to sink for ADLs or Treatment Focus to toilet as able. Ue therex and coordination exercises Discharge Recommendations OT Discharge Recommendations Acute Rehab Other Discharge Recommendations Pt appears agreeable and with fair to good endurance to participate in acute rehab. [place], acute rehab would likely be her best option for returning to her PLOF. Transportation Needs at Discharge Wheelchair/Cabulance
--- NOTE | 2021-01-24 14:04 | PC.NURSE ---
Shift summary: patient continues with current therapies ordered, worked with PT and OT today. No new complaints to this RN. Denies pain, shortness of breath. Tolerating meals. Left arm and left leg weakness continues. Denies new weakness, numbness, tingling or any vision changes. Speech is clear today, and denies any difficulties swallowing. Bed alarm for safety, with call light within reach.
--- NOTE | 2021-01-24 14:20 | PM.PN.1 ---
Subjective Subjective Date Patient Seen: 01/24/21 Time Patient Seen: 09:20 Interval history: She continues to remain with significant left sided weakness. She has not noticed any worsening or any improvement. She has no swallowing issues. She has no other complaints. Exam Vital Signs (past 8 hours): - 01/24/21 08:32 01/24/21 12:05 Temperature 96.1 F L 96.9 F L Pulse Rate 80 81 Respiratory Rate 16 16 Blood Pressure 161/112 H 143/104 H Pulse Oximetry 98 99 Oxygen Delivery Method Room Air Oxygen Flow Rate 0 Narrative Exam Narrative: GENERAL APPEARANCE: no acute distress HEENT: Left facial droop, no ptosis, PERRLA, conjunctiva clear, EOMs intact without nystagmus, mucous membranes are moist and pink without lesions or exudate. NECK/THYROID: neck supple, no JVD, no thyromegaly, trachea midline. SKIN: [place], warm and dry, no visible lesions, rashes, ulcerations or petechiae. HEART: regular rate and rhythm, S1-S2, no murmur, no rubs or gallops, no edema LUNGS: clear to auscultation bilaterally, no coarseness crackles or wheezing, no cough present CHEST: Symmetrical movement, no accessory muscle use, good tidal volume. ABDOMEN: Soft, no distention, no abdominal tenderness, no guarding or peritoneal signs, no organomegaly, no flank or suprapubic tenderness, active bowel tones. 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 PSYCH: Alert, cooperative, pleasant Objective Labs Result Diagrams: 01/23/21 07:30 01/23/21 07:30 Labs: Laboratory Results - last 24 hr 01/23/21 17:55 Troponin I < 0.012 [facility] Medical History (Updated 01/23/21 @ 03:08 by REMY Cui) Dupuytrens contracture Scoliosis Surgical History (Updated 01/23/21 @ 03:08 by REMY Cui) History of thumb surgery History of tubal ligation Family History (Updated 01/23/21 @ 06:28 by REMY Cui) Father Stroke Mother Blood disease Social History household members: spouse Smoking Status: Current every day smoker Assessment & Plan Assessment & Plan narrative: Assessment & Plan narrative: 60-year-old female patient with no significant medical history that presents to [facility] with CVA. Her last known normal was 5:00 p.m. on 01/21/2021. Patient felt abrupt left leg weakness, the following morning her symptoms extended to the left facial droop and left arm weakness. 1. Acute CVA, left-sided weakness, present on admission, active. -last known normal 5:00 p.m. on 01/22/2020 outside the window for tPA or interventional procedure. -no known risk factors are significant medical history. Patient denies complaints of headaches visual changes or nausea vomiting. -CT of the head finds no acute intracranial processes -MRI shows posterior right fronal lobe infarct with narrowing at distal right M1 segment -loaded with aspirin on admission, now continue 81 mg daily -because of stenosis at M1 will add plavix, plan for short 21 day course -ordered atorvastatin 80 mg daily at bedtime. -has elevated cholesterol, normal A1c -NIH stroke scale every shift, neuro checks every 4 hour. -requested PT OT evaluate and treat 2. RV dilation -noted on ECHO -patient with no physical findings of CHF exacerbation, troponin negative here -may need cardiology follow up as outpatient to monitor RV status 2. Elevated blood pressure without diagnosis of hypertension, present on admission, active --patient with elevated blood pressure upon arrival at 167/100. -Will allow for permissive hypertension for now during acute phase of stroke, may need antihypertensive on DC. VTE prophylaxis: Enoxaparin IV fluid: None Diet: Heart healthy Code status: Full code, patient designates her on significant other Fernando to be her surrogate decision maker. COVID-19 screening: Negative, completed at [facility]. DISPO: attempt for acute rehab to improve functional status before returning home
--- NOTE | 2021-01-24 14:23 | CM.DPC ---
DCP/continued: Reviewed chart. Received call from Alida at [facility], she reports that she will be submitting request for authorization today. Alida does not anticipate knowing if insurance will authorize acute rehab until tomorrow 01-25-21. Provider updated in AM rounds. P: Pending. [facility] attempting authorization for admit on 01-25-21. AKIKO Kessler
--- NOTE | 2021-01-24 14:52 | PT.IPTN ---
Current Diagnoses Cerebral infarction, unspecified (01/22/21) Physical Therapy Treatment Note M2 PT-IP Current Condition Start: 01/23/21 12:44 Freq: NEEDED Status: Active Protocol: Document 01/23/21 10:45 AB (Rec: 01/23/21 13:05 AB [id number]) Physical Therapy Current Condition Current Condition Evaluation Date 01/23/21 Treatment Diagnosis CVA L sided weakness; difficulty in walking Onset Date 01/22/21 Precautions Other Precautions falls M3 PT-IP Subjective Start: 01/23/21 12:44 Freq: NEEDED Status: Active Protocol: Document 01/24/21 14:52 AW (Rec: 01/24/21 15:20 AW [id number]) Subjective Physical Therapy Visit Type Type Treatment Note Visit Start Time 14:27 Visit Stop Time 14:52 Total Visit Minutes 25 Number of DOOR MANAGER Visits 0 Physical Therapy Visit Comments Patient Comments Pt is willing to participate with PT Therapy Pain Assessment Pain When Pain Assessed During Mobility Pain Present Pain Present Denied Pain M4 PT-IP Mobility and Gait Start: 01/23/21 12:44 Freq: NEEDED Status: Active Protocol: Document 01/24/21 14:52 AW (Rec: 01/24/21 15:20 AW [id number]) PT-Bed Mobility Assessment Supine to Sit Supine to Sit Moderate Assistance,1 Person Assistance Sit to Supine Sit to Supine Minimal Assistance,1 Person Assistance Scooting Scooting to Edge of Bed Minimal Assistance Scooting Up and Down in Bed Moderate Assistance PT-Transfer Assessment Sit to and From Stand Sit to and from Stand Maximum Assistance,1 Person Assistance,Use of Upper Extremities Equipment Transfer Assistive Device Gait Belt,Front Wheeled Walker Orthotic/Prosthetic Devices or Brace: No Transfers Transfer Destination Bed,Chair Transfer Technique Stand Step Pivot Transfer Ability Level of Assist Maximum Assistance,1 Person Assistance,Use of Upper Extremities Comments Mobility Comments Pt was lying on her left side in bed as PT arrived. She needed cues for attention to her left arm as she began to move toward the EOB for SL to sit completed mod A x 1 including assist for LUE and LLE. She was able to reach her right arm to the foot of the bed and pull up to unsupported sitting. She then stood from EOB max A x 1 and used the FWW to step pivot transfer max A x 1 to the chair set up on her right side. Constant verbal and tactile cues required for left knee extension and assist to control descent. Pt requested return to bed. She stood from the chair max A x 1 and used the FWW to step forward 3 feet with max tactile cues to facilitate LLE advancement. She turned to her right and backed up to the bed with continued max cues for LLE and sat EOB. She then returned to supine min A x 1 to elevate her LLE. With bed tilted backward, she was able to bridge and scoot up in the bed mod A x 1. Pt was positioned in supine with pillow under her left arm, three bed rails raised, and bed alarm armed for safety. Gait Assessment Gait Gait Assistance Required: Maximum Assistance,1 Person Assist Distance (Feet) 3 Assistive Devices Assistive Device Gait Belt,Front Wheeled Walker Orthotic/Prosthetic Devices or Brace: No Gait Deviations General Gait Pattern Ataxic,Decreased Stride Length ,Decreased Feet Clearance, Narrow Based Gait,Step-to Gait ,Wide Based Gait Factors Limiting Gait Function Factors Limiting Gait Function Decreased Strength,Difficulty Following Directions,Poor Balance,Poor Safety Awareness Comments Gait Comments Pt able to take steps during transfer with max A x 1. Steps were inconsistent and required max facilitation and tactile cueing for knee flexion and extension to advance her left limb. M5 PT-IP Objective Assessments Start: 01/23/21 12:44 Freq: NEEDED Status: Active Protocol: Document 01/23/21 10:45 AB (Rec: 01/23/21 13:05 AB [id number]) Orientation Orientation/Cognition Orientation Name Language Function Ability No Deficits Noted Safety Awareness Decreased Safety Awareness Gross Range of Motion Lower Extremity ROM Assessment Within Functional Limits Strength Lower Extremity Strength Assessment Left Impaired Hip 3+/5 Knee 3-/5 M6 PT-IP Treatment Start: 01/23/21 12:44 Freq: NEEDED Status: Active Protocol: Document 01/24/21 14:52 AW (Rec: 01/24/21 15:20 AW [id number]) Physical Therapy Treatment Education Education Provided Safety Other Treatments Other Treatment Performed Educated pt on left side inattention and the need to protect her joints on the left side. Encouraged pt to set up her environment to force use of her LUE as much as possible . M7 PT-IP Assessment and Plan Start: 01/23/21 12:44 Freq: NEEDED Status: Active Protocol: Document 01/24/21 14:52 AW (Rec: 01/24/21 15:20 AW [id number]) PT Summary Assessment and Plan Summary Impairments Pain,ROM,Strength,Balance, Coordination,Sensation,Tone, Cognition,Bed Mobility, Transfers,Gait,Activity Tolerance Progress Towards Goals Slow Progress due to Medical Issues Assessment Summary Pt was able to take steps with FWW and max assist and cues/ facilitation for LLE advancement during this session. She shows good effort with all activities. Pt will require acute rehab to improve strength and mobility independence. Goals Bed Mobility Goal Contact Guard Assistance Transfer Goal Minimal Assistance,Front Wheeled Walker Gait Goal Minimal Assistance,Front Wheel Walker Gait Distance 75 Other Goals improve ambulation using FWW CGA 125 ft up/down 5 steps R rail descending backwards CGA Days to Meet Goals 10 Frequency of Treatment Frequency Of Treatment Twice a Day Treatment Plan Physical Therapy Treatment Plan Bed Mobility Training,Transfer Training,Gait Training, Therapeutic Exercise,Balance Retraining,Discharge Planning, Hot or Cold Pack,Neuromuscular Re-ed,Coordination Retraining ,Manual Therapy Recommendations To Nursing Amount of Assist Needed 1 Person Assist Discharge Recommendations PT Discharge Recommendations Acute Rehab Transportation Needs at Discharge Wheelchair/Cabulance
--- NOTE | 2021-01-24 20:03 | PC.NURSE ---
Addendum entered by Clarissa Sneed R.N. 01/24/21 22:01: Pt admits to fatigue and is noted to be mostly sleeping this evening shift. Swallow intact. Takes hs meds whole with water. Original Note: Pt requests attention to right ac iv site. This site has scant amount blood leaking around site. Dressing removed and catheter examined at insertion site. Able to draw blood and flush and pt reports able to taste flush. Slight leaking at site, but pt denies pain, no erythema or edema. Pt on blood thinners so this may account for leakage. Pt does not desire restart of iv at this time. Fresh dressing applied and site wrapped in soft gauze. Instructed pt if this becomes troublesome, this content writer will restart iv and pt verbalizes understanding and agreement. Emotions are labile, with pt easily tearful. Allowed to verbalize concerns/fears. Pt able to position self independently in bed. LUE elevated on pillow x 1. Declines to wear scd's. NIH of 7. Pt reports speech is somewhat slurred at baseline d/t missing tooth. Currently do not assess pt as having slurred speech and left facial droop is improved over last evening shift.
[2021-01-24] MEDS: ATORVASTATIN 20 MG TABLET 80 MG PO (20:33)
--- NOTE | 2021-01-25 01:31 | PC.NURSE ---
0007 patient is alert and oriented. NIH is 10 for slight left facial droop, left arm/leg drift and ataxia of 2 limbs. Breath sounds CTA with RA sat of 96%. HRR w/telemetry reading of SR. BP 140/92; per evening RN MD aware of BP elevated and is allowing for permissive hypertension. Denies nausea. BT present and states she is passing flatus and reports having had BM yesterday. Denies dysuria, frequency or urgency with urination; using bedpan at night. Gait not assessed but evening RN reports she is able to stand and pivot using walker and 2 assists. Has some movement in left arm but not moving left LE tonight. Denies pain. Refusing SCD's so reminded to ankle wave. Fall risk score is high and bed alarm is activated.
[2021-01-25 04:00] VITALS: BP 136/85; PULSE 86; RESP 18; TEMP 36.4; O2SAT 97
[2021-01-25 07:19] VITALS: BP 122/94; PULSE 84; RESP 19; TEMP 36.7; O2SAT 98
--- NOTE | 2021-01-25 09:30 | OT.IP.TRT ---
Current Diagnoses Cerebral infarction, unspecified (01/22/21) Occupational Therapy Treatment Note M2 OT-IP Current Condition Start: 01/23/21 10:21 Freq: Status: Active Protocol: Document 01/23/21 10:22 CGR (Rec: 01/23/21 10:54 R [id number]) Occupational Therapy Current Condition Current Condition Evaluation Date 01/23/21 Treatment Diagnosis L sided weakness, facial droop Diagnosis Onset Date 01/22/21 M3 OT- IP Subjective and Pain Start: 01/23/21 10:21 Freq: Status: Active Protocol: Document 01/25/21 11:00 CGR (Rec: 01/25/21 11:10 R [id number]) OT- Subjective Occupational Therapy Visit Type Type Progress Note Visit Start Time 08:55 Visit Stop Time 09:30 Total Visit Minutes 35 Notes co-treat with P.T. OT Pain Assessment Pain When Pain Assessed At Rest Pain Present Pain Present Denied Pain M4 OT- IP ADL's Start: 01/23/21 10:21 Freq: Status: Active Protocol: Document 01/25/21 11:00 CGR (Rec: 01/25/21 11:10 CGR [id number]) OT [id number] Comments OT Self-Feeding Comments Not meal time OT ADL-Grooming General Evaluation Grooming Ability Maximum Assistance Areas Needing Assistance Combing/Brushing Hair Comments OT Grooming Comments Assisted pt with brushing hair and putting hair up per pt request. OT ADL-Oral Care Comments Oral Care Comments not performed OT ADL-Dressing General Eval Lower Body Dressing Ability Maximum Assistance Areas Needing Assistance Underpants/Brief Comments OT Dressing Comments Pt needed max a for threading BLE into brief and pulling into place OT ADL-Toileting Comments OT Toileting Comments not performed OT ADL-Bathing Comments OT Bathing Comments not performed M5 OT- IP IADL's Start: 01/23/21 10:21 Freq: Status: Active Protocol: Document 01/23/21 10:22 CGR (Rec: 01/23/21 10:54 R [id number]) OT-Instrumental Activities of Daily Living Deficits IADL Deficits Identified Deficits Home Safety Awareness Awareness of Need for Assistance at Home Decreased Awareness Ability to Problem Solve Emergency Unable to Problem Solve Situations Home Safety Comments Pt states that her may be able to help her with entering and exiting the boat. Given her need for assist with transfers today, it is unlikely that pt would be able to perform those tasks even with help. Medication Management Medication Management No Deficits Identified Money Management Money Management No Deficits Identified Meal Preparation Meal Preparation Caregiver Provides Assist Digital Designer Digital Designer Caregiver Provides Assist Driving Driving Comments Pt and spouse use public transportation M6 OT- IP Functional Cognition Start: 01/23/21 10:21 Freq: Status: Active Protocol: Document 01/24/21 12:16 CGR (Rec: 01/24/21 12:30 CGR [id number]) Cognitive Factors Limiting Selfcare Function Cognitive Ability Level of Alertness Alert Attention Span Ability Unable to Focus,Unable to Sustain Attention Ability to Follow Commands Able to Follow One Step Commands with Increased Time, Able to Follow One Step Commands with Repetition Safety Awareness Underestimates Need for Assistance Cognitive Comments Cognitive Assessment Comments Pt had difficulty keeping on topic and following simple commands. Per ST, Pt scored a 20/30 on the SLUMS on 01/23/21. M7 OT- IP Mobility and Balance Start: 01/23/21 10:21 Freq: Status: Active Protocol: Document 01/25/21 11:00 CGR (Rec: 01/25/21 11:10 CGR [id number]) OT-Transfer Assessment Sit to and From Stand Sit to and from Stand Moderate Assistance,2 Person Assistance Transfers Transfer Ability Moderate Assistance,2 Person Assistance Technique Transfer Destination Chair Transfer Technique Stand Step Pivot Devices Transfer Assistive Devices Gait Belt,Front Wheeled Walker OT- Gait Assessment Gait Gait Assistance Required: Moderate Assistance,2 Person Assist Assistive Devices Assistive Device Gait Belt,Front Wheeled Walker Comments Gait Ability Comments Pt ambulated ~8 feet x3 trials with chair follow. Pt was able to follow sequence of walker, L foot, push through hands, R foot with VC to assist. Pt drags the L foot when not instructed to pick foot up fully. Pt was able to lift L foot up upon 2 steps but otherwise dragged foot. Pt needs rest break between attempts. OT- Balance Assessment Sitting Balance and Reactions Static Sitting Balance Ability Fair Dynamic Sitting Balance Ability Fair M8 OT- IP Objective Assessments Start: 01/23/21 10:21 Freq: Status: Active Protocol: Document 01/23/21 10:22 CGR (Rec: 01/23/21 10:54 CGR [id number]) OT Gross Range of Motion Upper Extremity Range of Motion Assessment Within Functional Limits OT Strength Upper Extremity Strength Assessment Left Impaired Shoulder 3-/5 Elbow 4+/5 Hand 4/5 Hand Programming Internship Strength Hand Dominance Right Comments Strength Comments RUE WFL 4+ to 5/5 OT- Coordination Assessment Upper Extremity Finger to Nose Test Left UE Impaired Finger Tapping Test Left UE Impaired Comments Coordination Comments Pt is able to do both with poor coordition and extra time . OT-Muscle Tone Assessment Muscle Tone WNL Yes OT Sensation Assessment Comments Summary Comments Pt states sensation is typical Edema Edema Absent M9 OT- IP Assessment and Plan Start: 01/23/21 10:21 Freq: Status: Active Protocol: Document 01/25/21 11:00 CGR (Rec: 01/25/21 11:10 CGR [id number]) OT Summary Assessment and Plan Potential Rehabilitation Potential Excellent Analytic Complexity at Evaluation Moderate Summary OT Impairments Strength,Balance,Coordination, Functional Cognition, Functional Mobility,Self- Feeding,Grooming,Dressing, Toileting,Bathing,Toilet Transfers,Shower Transfers, Activity Tolerance Progress Towards Goals Progressing Toward Goals Assessment Summary Pt presents as a moderate complexity evaluation s/p likely CVA. Pt presents with L sided weakness that is impacting her ability to mobilize and perform ADLs safely. Pt participated in mobility with 2 person assist and is making progress with her mobility. Pt will continue to benefit from Ot services. Recommend d/c to acute rehab. Goals Self-Feeding Goal Independent Grooming Goal Independent Dressing Goal Independent Toileting Goal Independent Bathing Goal Independent Toilet Transfer Goal Independent Shower Transfer Goal Independent Days to Meet Goals 30 Frequency of Treatment Frequency Of Treatment Once a Day Treatment Plan OT Treatment Plan ADL Training,Functional Cognition Training,Functional Mobility,Neuromuscular Re- education,Therapeutic Exercises,Patient/Family Education,Discharge Planning Other Treatment Recommendations and Next Mobility to sink for ADLs or Treatment Focus to toielt as able. Ue therex and coordintion exercises Discharge Recommendations OT Discharge Recommendations Acute Rehab Other Discharge Recommendations Pt appears agreeable and with fair to good endurance to participate in acute rehab. [place], acute rehab would likely be her best option for returning to her [place]. Transportation Needs at Discharge Wheelchair/Cabulance
--- NOTE | 2021-01-25 10:01 | PT.IPTN ---
Current Diagnoses Cerebral infarction, unspecified (01/22/21) Physical Therapy Treatment Note M2 PT-IP Current Condition Start: 01/23/21 12:44 Freq: NEEDED Status: Active Protocol: Document 01/23/21 10:45 AB (Rec: 01/23/21 13:05 AB [id number]) Physical Therapy Current Condition Current Condition Evaluation Date 01/23/21 Treatment Diagnosis CVA L sided weakness; difficulty in walking Onset Date 01/22/21 Precautions Other Precautions falls M3 PT-IP Subjective Start: 01/23/21 12:44 Freq: NEEDED Status: Active Protocol: Document 01/25/21 08:55 SANDEEP (Rec: 01/25/21 10:01 LJ [id number]) Subjective Physical Therapy Visit Type Type Treatment Note Visit Start Time 08:55 Visit Stop Time 09:27 Total Visit Minutes 32 Notes Co treat with OT Number of 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 Visits 1 Physical Therapy Visit Comments Patient Comments Pt is willing to participate with PT Therapy Pain Assessment Pain When Pain Assessed During Mobility Pain Present Pain Present Denied Pain M4 PT-IP Mobility and Gait Start: 01/23/21 12:44 Freq: NEEDED Status: Active Protocol: Document 01/25/21 08:55 SANDEEP (Rec: 01/25/21 10:01 LJ [id number]) PT-Transfer Assessment Sit to and From Stand Sit to and from Stand Minimal Assistance,2 Person Assistance,Use of Upper Extremities Equipment Transfer Assistive Device Gait Belt,Front Wheeled Walker Orthotic/Prosthetic Devices or Brace: No Transfers Transfer Destination Chair Transfer Technique Forward/Backward Scoot Transfer Ability Level of Assist Moderate Assistance,2 Person Assistance,Use of Upper Extremities Comments Mobility Comments Pt in chair upon arrival. Pt completed sit<>stand x 4. First sit<>stand pt required cueing and ModA. Pt stood for ~1 minute then requested to sit down. Pt donned brief with MaxA and returned to standing . She then ambulated x3 with chair following. Required cueing for reaching back for chair arms each time she returned to the chair. See Gait section for ambulation. Gait Assessment Gait Gait Assistance Required: Moderate Assistance,1 Person Assist Assistive Devices Assistive Device Gait Belt,Front Wheeled Walker Orthotic/Prosthetic Devices or Brace: No Gait Deviations General Gait Pattern Ataxic,Decreased Stride Length ,Decreased Feet Clearance, Narrow Based Gait,Step-to Gait ,Wide Based Gait Factors Limiting Gait Function Factors Limiting Gait Function Decreased Strength,Difficulty Following Directions,Poor Balance,Poor Safety Awareness Comments Gait Comments Pt walked with FWW and chair follow. ModA x2 (OT and PT). Required max verbal and actile cueing for FWW management and body mechanics for safe ambulation. Pt able to walk ~ 10 feet x3 with short seated rest in between. With each ambulation attempt pt was able to progress slightly with LE management and comprehension. Required constant assist with keeping LUE on FWW. Pt had better control of hyperextension of LLE and able to slightly lift L foot off floor during advancement of LE but needed cueing to keep the step shorter for better control when putting weight on the limb. After ambulation, she returned to chair and was given all needs within reach. Nursing entered to administer test. M5 PT-IP Objective Assessments Start: 01/23/21 12:44 Freq: NEEDED Status: Active Protocol: Document 01/23/21 10:45 AB (Rec: 01/23/21 13:05 AB [id number]) Orientation Orientation/Cognition Orientation Name Language Function Ability No Deficits Noted Safety Awareness Decreased Safety Awareness Gross Range of Motion Lower Extremity ROM Assessment Within Functional Limits Strength Lower Extremity Strength Assessment Left Impaired Hip 3+/5 Knee 3-/5 M6 PT-IP Treatment Start: 01/23/21 12:44 Freq: NEEDED Status: Active Protocol: Document 01/25/21 08:55 SANDEEP (Rec: 01/25/21 10:01 SANDEEP [id number]) Physical Therapy Treatment Education Education Provided Safety M7 PT-IP Assessment and Plan Start: 01/23/21 12:44 Freq: NEEDED Status: Active Protocol: Document 01/25/21 08:55 SANDEEP (Rec: 01/25/21 10:01 LJ [id number]) PT Summary Assessment and Plan Potential Rehabilitation Potential Good Status of Condition at Evaluation Evolving Summary Impairments Pain,ROM,Strength,Balance, Coordination,Sensation,Tone, Cognition,Bed Mobility, Transfers,Gait,Activity Tolerance Progress Towards Goals Slow Progress due to Medical Issues Assessment Summary Pt has made good progress with ambulation. Requires Max cueing and tactile facilitation for LE advancement and FWW management . She is willing to work hard and will benefit from acute rehab. Goals Bed Mobility Goal Contact Guard Assistance Transfer Goal Minimal Assistance,Front Wheeled Walker Gait Goal Minimal Assistance,Front Wheel Walker Gait Distance 75 Other Goals improve ambulation using FWW CGA 125 ft up/down 5 steps R rail descending backwards CGA Days to Meet Goals 10 Frequency of Treatment Frequency Of Treatment Twice a Day Treatment Plan Physical Therapy Treatment Plan Bed Mobility Training,Transfer Training,Gait Training, Therapeutic Exercise,Balance Retraining,Discharge Planning, Hot or Cold Pack,Neuromuscular Re-ed,Coordination Retraining ,Manual Therapy Recommendations To Nursing Amount of Assist Needed 1 Person Assist Discharge Recommendations PT Discharge Recommendations Acute Rehab
[2021-01-25] MEDS: ENOXAPARIN 40 MG/0.4 ML SYRINGE SUBCUT (10:04)
[2021-01-25] MEDS: ASPIRIN EC 81 MG TABLET PO (10:04)
[2021-01-25] MEDS: SODIUM CHLORIDE 0.9% FLUSH 10 ML IV (10:05)
[2021-01-25 10:20] LABS: COVID19 -Nasal RAPID Negative (Negative)
--- NOTE | 2021-01-25 10:37 | PC.NURSE ---
Assess- Patients NIH stroke scale a 4. Patients l.arm and l.leg does have some drift and her smile is slightly asymmetrical on the left side. Her speech is normal. She is a One person assist to the chair where she has been sitting. Ate some at breakfast and became emotional and crying at a movie. Easily reassured and calmed. Her covid 19 test is negative and she will be going to [facility] rehab later today.
[2021-01-25 11:24] VITALS: BP 140/70; PULSE 84; RESP 20; TEMP 36.7; O2SAT 98
--- NOTE | 2021-01-25 12:43 | CM.DPNOTE ---
Faxed order and Covid result to Alida per her request at [facility] on 01/25/21. Fax confirmation received. Aure Cardenas CM Asst.
--- NOTE | 2021-01-25 12:50 | SLP.IPNOTE ---
Pt is scheduled to be discharged to acute rehab today. Pt reported to be eating well without s/sx aspiration. Speech in 100% intelligible. Pt did not want ST today due to being uncomfortable. When asked if this therapist could get help or assist her, she indicated she did not want help.
--- NOTE | 2021-01-25 14:14 | CM.DPNOTE ---
Addendum entered by [place] Workman 01/25/21 15:45: Patient scheduled to be picked up around 3:45pm by [employer] [facility] ph# [phone]. RN updated. KJS Original Note: DCP/continued: Received call from Alida at [facility], they have accepted patient for admit today. UX INFORMATION ARCHITECT asked SUDHA/Aure to fax d/c summary and orders to [facility]. Currently patient requiring w/c transport. Completed Medicaid transport form and faxed to [facility]. Currently awaiting time for hop picker. Patient aware and agreeable to transfer today. P: [facility] today. AKIKO Kessler
--- NOTE | 2021-01-25 15:47 | PC.NURSE ---
Addendum entered by Aliyah Junior R.N. 01/25/21 16:12: Pt transportation arrived. Pt discharged to [facility] for rehab in stable condition. Original Note: Pt preparing for discharge. Pt unable to move left arm & leg independently. NIH @this time 9 due to left sided weakness. RAC midline discontinued intact. Tele discontinued. Assisted pt w/dressing and now sitting in chair Awaiting transportation.
--- NOTE | 2021-01-25 16:40 | CM.DPC ---
DCP CONTINUED: COMMUNICATIONS WRITER coordinated acceptance for patient this date at [facility] in [place]. Physical Therapy recommended a transportation to facility via cabulance and a wheelchair. Spoke with patient she is fine with securing transportation. COMMUNICATIONS WRITER and COMMUNICATIONS WRITER Student called faxed Medicaid Transportation Services and spoke with [facility] [employer] arriving between [phone]. Nursing notified. PLAN: D/C to subacute rehab
--- NOTE | 2021-01-26 07:23 | P.DS_ITS ---
History of Present Illness History of Present Illness Date Patient Seen: 01/25/21 Chief complaint: CVA Narrative: Ms. Altagracia Zhu is 60-year-old female who was a direct admit transfer from [facility] with CVA. Patient has no significant past medical history and takes no routine medications aside from vitamins. The patient had an onset of symptoms at approximately 5:00 p.m. on 01/21/2021 which is her last known normal. She describes an abrupt onset of left leg heaviness making it hard to walk and dragging her foot. The patient went to bed in the following morning the leg weakness persisted and progressed to include left facial droop and left arm weakness. [place] her to seek medical care. The patient denies any antecedent symptoms. She denies complaints of headaches or dizziness, numbness or tingling, nausea or vomiting. The patient denies recent illness, fevers or chills or known COVID-19 exposures. She denies nasal congestion sore throat and denies difficulty chewing or swallowing. She denies complaints of chest pain, palpitations or rapid heartbeat. She reports no shortness of breath cough or wheezing. She denies epigastric or abdominal pain and has had no change in bowel or bladder habits. The patient has been active and independent in all ADLs before these events. Upon arrival to [facility] the patient as temperature 36.5? C, heart rate 94, blood pressure 135/88, respirations 18 saturating 96% on room air. Upon arrival to the acute care floor she is found to have a temperature 96.4?, heart rate of 97, blood pressure 167/100, respiratory rate 20 saturating 100% on room air. CT of the head obtained at [facility] finds no intracranial abnormality, remote right basal ganglion infarct. CT angiogram of the head neck finds no hemodynamically significant stenoses. Twelve lead EKG finds sinus rhythm without ectopy or block, inverted Ts in lead 3 and AVF. Labs from [facility] are reviewed, she has white count of 10.3, hemoglobin of 16.3, hematocrit of 47.3 and platelets of 230. Her coagulation studies within normal range. On chemistries are electrolytes are within normal limits with a BUN of 23 and creatinine 0.8, nonfasting glucose is 109. She has a total bilirubin of 0.7 with an AST of 24, ALT of 20 and alkaline phosphatase 99. NIH scoring at [facility] was 6. The patient is accepted and transferred to [facility] for CVA and MRI services not available at [facility]. Discharge Providers Provider Date of admission: 01/22/21 18:33 Discharge Date: 01/25/21 Consults: 01/22/21 20:30 Consult to Discharge Planning Routine Comment: Consult to Occupational Therapy Evaluate & Treat Comment: Physician Instructions: Evaluate and treat Consult to Physical Therapy Evaluate & Treat Comment: Physician Instructions: Evaluate and Treat Consult to Speech Therapy Evaluate & Treat Comment: Physician Instructions: Evaluate and treat Discharge provider: Chana Ball MD Summary Hospital Course Discharge Diagnosis: 1. Acute CVA, secondary to left frontal lobe infarct 2. Hypertension 3. Hyperlipidemia 4. Nicotine dependence Hospital Course: Patient was admitted to the hospital for abrupt onset of left facial droop, left arm weakness, left leg weakness. The patient was seen at [facility] in as they did not have an MRI she was sent to [facility] for further evaluation. At [facility] patient was found to have left-sided weakness. This involved her arm leg and face. She underwent MRI of her brain which showed the following findings: here is an acute or subacute infarction seen involving the deep white matter of the right frontal lobe posteriorly. A chronic infarction can be seen just anterior to this infarction.BRAIN MR ANGIOGRAM: Focal narrowing can be seen involving the distal right M1 segment.NECK MR ANGIOGRAM: Within the arteries of the neck, no hemodynamically significantstenosis can be seen. 40-50% narrowing can be seen involving both proximal internalcarotid arteries. Patient had an echocardiogram which revealed the following: he left ventricle is normal in size and wall thickness. The ejection fraction is estimated to be 60-65%. Diastolic parameters suggest a relaxation abnormality of the left ventricle, consistent with probable normal filling pressures.The right ventricle is severely dilated. Right ventricular systolic function is borderline reduced. The interventricular septum is flattened, consistent with a right ventricular pressure/volume condition. The right ventricular systolic pressure is estimated to be at least 52 mmHg based on an estimated right atrial pressure of 3 mm Hg.The left atrial size is normal. The right atrium is moderately dilated.There is no significant valvular heart disease.The ascending aorta is mildly enlarged. Patient was mildly hypertensive in placed on an SUZANNE-inhibitor at discharge. In addition a fasting lipid profile was obtained in the patient was placed on a statin for her elevated LDL. Given her M1 segment abnormality patient was placed on Plavix and aspirin. She continued to have significant left arm left leg weakness. This did improved. 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 She also had left-sided facial droop as well. Patient made slow but steady progress. She was deemed appropriate for discharge. Arrangements were made for her to transfer to [facility] for ongoing rehab. Status at Discharge Cognitive/behavioral status at discharge: oriented Functional status at discharge: uses cane/walker Overall status at discharge: patient is not back to baseline Time Spent with Patient Time spent: Less than 30 minutes Exam Vital Signs (past 8 hours): Oxygen Delivery Method Room Air Oxygen Flow Rate 0 Narrative Exam Narrative: Pleasant female in no acute distress Lungs: Clear to auscultation Cardiac exam: Regular rate and rhythm normal S1-S2 Abdomen: Soft nontender Focus neuro exam: Patient with left arm left leg weakness, mild left facial droop persists Objective Labs Result Diagrams: 01/23/21 07:30 01/23/21 07:30 Labs: Laboratory Results - last 24 hr 01/25/21 09:30 SARS-CoV-2 (PCR) Negative [facility] Medical History (Updated 01/23/21 @ 03:08 by REMY Cui) Dupuytrens contracture Scoliosis Surgical History (Updated 01/23/21 @ 03:08 by REMY Cui) History of thumb surgery History of tubal ligation Family History (Updated 01/23/21 @ 06:28 by REMY Cui) Father Stroke Mother Blood disease Social History household members: spouse Smoking Status: Current every day smoker Discharge Assessment & Plan Assessment and Plan Assessment: 1. Acute right frontal lobe infarct, with residual left face left arm and left leg weakness 2. Hypertension 3. Hyperlipidemia Discharge Plan Discharge Plan Patient Disposition: Xfer Inpatient Rehab Consult as needed: Dental, Hearing, Mental health, Podiatry and Vision Discharge orders & Medications Discharge Orders: Discharge (Order); Ordered 01/25/21 Ordered By: Chana Ball Prescriptions: New aspirin 81 mg Tablet,Delayed Release (Dr/Ec) 81 mg PO DAILY Qty: 30 RF: 0 atorvastatin [Lipitor] 20 mg Tablet 80 mg PO BEDTIME Qty: 30 RF: 0 clopidogrel [Plavix] 75 mg tablet 75 mg PO DAILY Qty: 30 RF: 0 lisinopril 10 mg tablet 10 mg PO DAILY Qty: 30 RF: 0 Discharge Health Status Multidrug resistant organism: No MDRO Diet/Activity/Treatments Liquid consistency: Normal/Thin Food texture: Regular Special Rehabilitation Services Reason for rehabilitation: Therapy following stroke Rehab type: Physical therapy, Occupational therapy and Speech therapy
== END 2021-01-25 16:00 | DRG 45 ==
PROVIDERS: Internal Medicine; Nurse Practitioner Adult Health; Admitting Provider Internal Medicine; Referring Provider Internal Medicine; Visit Provider Internal Medicine
DX: I63.9 Cerebral infarction, unspecified (principal); G81.94 Hemiplegia, unspecified affecting left nondominant side; R29.810 Facial weakness; E78.5 Hyperlipidemia, unspecified; I10 Essential (primary) hypertension; F17.210 Nicotine dependence, cigarettes, uncomplicated; Z20.822 Contact with and (suspected) exposure to COVID-19
CPT/HCPCS: 36415; 70548; 70553; 80053; 80061; 82962; 83036; 83735; 84443; 84484; 85025; 87635; 92523; 93306; 94762; 97110; 97116; 97162; 97166; 97530; 97535; 99406; C9803; J1650

== ENCOUNTER 2025-03-03 14:59 | Inpatient (IN) | payer MEDICARE, MEDICAID, SELFPAY ==
[2025-03-03] VITALS (17 sets, daily range): BP systolic 116–202; BP diastolic 70–107; PULSE 74–110; RESP 18–26; TEMP 35.7–36.3; O2SAT 57–99; BMI 31.1
--- NOTE | 2025-03-03 15:05 | DI.RAD.S_ITS ---
PROCEDURE: XR CHEST 1V INDICATIONS: Possible stroke TECHNIQUE: One view of the chest was acquired. COMPARISON: None. FINDINGS: Surgical changes and devices: None. Lungs and pleura: Small to moderate left pleural effusion with left basilar infiltrate/atelectasis. Right lung is clear. No pneumothorax. Mediastinum: Mediastinal contours appear normal. Heart size is enlarged. Bones and chest wall: No suspicious bony lesions. Overlying soft tissues appear unremarkable. IMPRESSION: Small to moderate left pleural effusion and left basilar infiltrate/atelectasis. No pneumothorax. Dictated by: Gregorio Quarles M.D. on 03/03/2025 at 16:18 Approved by: Gregorio Quarles M.D. on 03/03/2025 at 16:19
--- NOTE | 2025-03-03 15:08 | DI.CT.S_ITS ---
PROCEDURE: CT HEAD/BRAIN WO CON INDICATIONS: weaker than normal prior cva TECHNIQUE: Noncontrast 4.5 mm thick angled axial sections acquired from the foramen magnum to the vertex, with coronal and sagittal reformats. For radiation dose reduction, the following was used: automated exposure control, adjustment of mA and/or kV according to patient size. COMPARISON: [facility], CR, XR CHEST 1V, 03/03/2025, 15:56. (Additional prior imaging is not available for review from the archive at the time of this dictation.) FINDINGS: Image quality: This examination is limited by involuntary motion artifact. CSF spaces: Basal cisterns are patent. No extra-axial fluid collections. The ventricles are symmetric in size and shape. Brain: No intracranial bleeds or mass effect. There is cerebral volume loss, with resultant ventricular and sulcal prominence. There are periventricular and deep white matter chronic small vessel ischemic changes. There is intracranial internal carotid artery atherosclerosis. Skull and face: Calvarium and visualized facial bones appear intact, without suspicious lesions. Sinuses: Visualized sinuses and mastoids are clear. IMPRESSION: No acute intracranial hemorrhage is seen. No acute intracranial pathology. If there is strong clinical suspicion for an acute stroke, please consider a brain MRI for further evaluation, as it is more sensitive (assuming that there is no contraindication to MRI). Dictated by: Brian Saldaña M.D. on 03/03/2025 at 15:14 Approved by: Brian Saldaña M.D. on 03/03/2025 at 15:19
[2025-03-03 15:55] LABS: Add Manual Diff / Slide Review NO; Basophils Absolute Auto 0 /uL (0-100); Basophils Percent Auto 0.4 % (0-2); Eosinophils Absolute Auto 100 /uL (0-450); Eosinophils Percent Auto 0.5 % (2-4); Hematocrit 49.7 % (36-46); Hemoglobin 16.3 g/dL (12.0-16.0); Lymphocytes Absolute Auto 2100 /uL (1100-4500); Lymphocytes Percent Auto 19.9 % (25-40); Mean Corpuscular HGB Conc 32.9 % (30-36); Mean Corpuscular Hemoglobin 29.5 PG (26-34); Mean Corpuscular Volume 89.9 fL (80-100); Monocytes Absolute Auto 1000 /uL (0-900); Monocytes Percent Auto 9.4 % (3-14); Neutrophils Absolute Auto 7400 /uL (1500-7000); Neutrophils Percent Auto 69.8 % (50-75); Platelet Count 184 X10^3/uL (150-400); Red Blood Cell Count 5.53 X10^6/uL (4.0-5.2); Red Cell Distribution Width 16.5 % (11.6-14.8); White Blood Cell Count 10.6 X10^3/uL (4.5-11.0)
[2025-03-03 16:02] LABS: INR 1.1 (0.9-1.3); Prothrombin Time 12.5 SECONDS (9.4-12.5)
[2025-03-03 16:04] LABS: PTT Partial Thromboplastin Tim 31 SECONDS (25.1-36.5)
[2025-03-03 16:05] LABS: Alanine Aminotransferase 45 IU/L (<35); Albumin 2.7 g/dL (3.5-5.0); Albumin Globulin Ratio 0.8 (1.0-2.8); Alkaline Phosphatase 103 U/L (38-126); Aspartate Aminotransferase 66 IU/L (14-36); Bilirubin Total 0.9 mg/dL (0.2-1.3); Blood Urea Nitrogen 37 mg/dL (7-17); Calcium 8.6 mg/dL (8.4-10.2); Carbon Dioxide 16 mmol/L (22-32); Chloride 109 mmol/L (98-107); Creatine Kinase 103 U/L (30-135); Estimated Glomerular Filt Rate 39 mL/min (>60); Globulin 3.4 g/dL (1.7-4.1); Glucose 119 mg/dL (70-99); HEMOLYSIS 19 (0-50); Sodium 136 mmol/L (137-145); Total Protein 6.1 g/dL (6.3-8.2)
--- NOTE | 2025-03-03 16:16 | PC.NURSE ---
Pt states that this morning she had episode of confusion weakness and difficulty finding appropriate words that lasted about 6-7 minutes. called EMS. Pt evaluated by EMS and declined transport to ED at that time. Pt then states that she was ambulating to the bathroom at home and fell because she was feeling increasingly weak and fatigued. called EMS and pt transported to ED for further evaluation. Pt has hx of stroke with residual left-sided deficits. Pt arrived to ED a&ox4 and states that she still feeling weak. Denies sob, cp, n/v. A&Ox4.
--- NOTE | 2025-03-03 16:29 | EKG_ITS ---
[address] [address] Test Date: 2025-03-03 Pat Name: Altagracia Zhu Department: [facility] Room: Gender: Female Associate Accountant: DENISSE : 1960 Requested By: Order Number: [id number] Reading MD: Rahat Ryan MD Measurements Intervals [place] Rate: 108 P: 80 TN: 156 QRS: 154 QRSD: 82 T: 40 QT: 350 QTc: 469 Interpretive Statements Sinus tachycardia Right axis deviation Pulmonary disease pattern Possible Right ventricular hypertrophy Inferior infarct , age undetermined NO PRIOR TRACING Electronically Signed On 03-04-2025 7:14:33 PDT by Rahat Ryan MD
[2025-03-03 16:41] LABS: Troponin I 0.561 ng/mL (0.01-0.034)
[2025-03-03] MEDS: SODIUM CHLORIDE 0.9% 1,000 ML 1000 ML IV (16:49)
--- NOTE | 2025-03-03 18:13 | PC.NURSE ---
Pt has left-sided weakness & deficit from previous stroke x4 years ago.
--- NOTE | 2025-03-03 18:45 | ED_ITS ---
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 At the time EMS was called but she refused transport and subsequently at 2:00 p.m. attempted to go to the bathroom again and fell to the ground and noticed that she had slurred speech which lasted for about an hour to an hour half. She currently denies any loss of consciousness, vision loss, hearing loss, difficulty swallowing, headache, dizziness, blurred vision, chest pain, shortness of breath, back, or abdominal pain. Other than what is stated 14 point review of system is negative Related Data Previous Rx's Medication Instructions Recorded aspirin 81 mg tablet,delayed 81 mg PO DAILY #30 tabs 01/25/21 release atorvastatin 20 mg tablet (Lipitor) 80 mg (4 x 20 mg) PO BEDTIME #30 01/25/21 tabs clopidogrel 75 mg tablet (Plavix) 75 mg PO DAILY #30 tabs 01/25/21 lisinopril 10 mg tablet 10 mg PO DAILY #30 tabs 01/25/21 Allergies Allergy/AdvReac Type Severity Reaction Status Date / Time No Known Drug Allergies Allergy Verified 01/22/21 20:42 Review of Systems Review of Systems ROS Unobtainable: All systems reviewed & are unremarkable except as noted in HPI and below Patient History Medical History (Updated 03/03/25 @ 20:40 by Rahat Hardwick DO) Scoliosis Dupuytrens contracture Surgical History (Updated 01/23/21 @ 03:08 by REMY Cui) History of thumb surgery History of tubal ligation Family History (Updated 01/23/21 @ 06:28 by REMY Cui) Father Stroke Mother Blood disease Social History household members: spouse Smoking Status: Never smoker Smoking Status: Never smoker alcohol intake frequency: a few times a month Exam Narrative Exam Narrative: GENERAL: [64] year old patient appears stated age. Well-developed patient, in mild distress. HEAD: Atraumatic. Normocephalic. EYES: Pupils equal round and reactive. Extraocular motions intact. No scleral icterus. No injection or drainage. ENT: Nose without bleeding, purulent drainage. Throat without erythema, tonsillar hypertrophy or exudate. Airway patent. NECK: Trachea midline. Non tender CARDIOVASCULAR: Regular rate and rhythm without murmurs, gallops, or rubs. RESPIRATORY: Clear to auscultation. Breath sounds equal bilaterally. No wheezes, rales, or rhonchi. GASTROINTESTINAL: Abdomen soft, non-tender, nondistended. EXTREMITIES: No edema or joint tenderness. BACK: Nontender without deformity or crepitance. No flank tenderness. NEURO: AOx3. GCS 15 LUE 3/5 LLE 3/5 both 5/5 for RUE and RLE SKIN: No rash or erythema of visible areas Initial Vital Signs Initial Vital Signs: Vital Signs Pulse Rate 107 H 03/03/25 14:59 Blood Pressure 166/86 H 03/03/25 14:59 Pulse Oximetry 93 03/03/25 14:59 Scores HEART Score Heart Score history: Moderately Suspicious Heart Score EKG: Non-Specific repolarization disturbance Heart Score Age: > or = 65 years old Heart Score risk factors: > 3 risk factors or hx of atherosclerotic disease Heart Score troponin: > 3 times normal limit Heart Score Total: 8 Course Orders Ordered: ED Orders 03/03/25 15:05 XR chest 1V Stat Urine Drug Screen, Rapid Stat EKG-12 Lead Stat 03/03/25 15:08 CT head/brain wo con Stat 03/03/25 15:45 Complete Blood Count AUTO DIFF Stat Comprehensive Metabolic Panel Stat PTT Partial Thromboplastin Deuce Stat Prothrombin Time INR Stat Troponin & CK Cardiac Panel Stat 03/03/25 18:45 Trop I [Troponin I] Stat Ondansetron HCl (Ondansetron 4 Mg/2 Ml Inj) 4 mg IV NOW PRN PRN Reason: Nausea And Vomiting Ondansetron HCl (Ondansetron 4 Mg Odt) 4 mg PO NOW PRN PRN Reason: Nausea And Vomiting Discontinued Medications Sodium Chloride (Normal Saline 0.9%) 1,000 mls @ 1,000 mls/hr IV BOLUS ONE Stop: 03/03/25 17:40 Last Admin: 03/03/25 16:49 Dose: 1,000 mls/hr Documented By: MPO Vital Signs Vital signs: Vital Signs - 8 hr 03/03/25 14:59 03/03/25 14:59 03/03/25 15:00 Temperature Pulse Rate 107 H 109 H Respiratory Rate Blood Pressure 166/86 H Pulse Oximetry 93 86 L Oxygen Delivery Method 03/03/25 15:05 03/03/25 15:08 03/03/25 15:08 Temperature 97.3 F L Pulse Rate 110 H 109 H Respiratory Rate 18 Blood Pressure 166/86 H 202/107 H Pulse Oximetry 95 90 L Oxygen Delivery Method Room Air 03/03/25 15:30 03/03/25 15:31 03/03/25 15:31 Temperature Pulse Rate 108 H 108 H Respiratory Rate Blood Pressure 161/93 H Pulse Oximetry 90 L 90 L Oxygen Delivery Method 03/03/25 16:03 03/03/25 16:30 03/03/25 17:00 Temperature Pulse Rate 107 H 109 H 107 H Respiratory Rate Blood Pressure Pulse Oximetry 96 96 97 Oxygen Delivery Method 03/03/25 18:05 03/03/25 18:30 Temperature Pulse Rate 74 Respiratory Rate Blood Pressure 116/70 Pulse Oximetry 57 L Oxygen Delivery Method MDM - Weakness Lab Data 03/03/25 15:45 03/03/25 15:45 Labs: Lab Results 03/03/25 Range/Units 15:45 WBC 10.6 (4.5-11.0) X10^3/uL RBC 5.53 H (4.0-5.2) X10^6/uL Hgb 16.3 H (12.0-16.0) g/dL Hct 49.7 H (36-46) % MCV 89.9 (80-100) fL MCH 29.5 (26-34) PG MCHC 32.9 (30-36) % RDW 16.5 H (11.6-14.8) % Plt Count 184 (150-400) X10^3/uL Neut % (Auto) 69.8 (50-75) % Lymph % (Auto) 19.9 L (25-40) % [place] % (Auto) 9.4 (3-14) % Eos % (Auto) 0.5 L (2-4) % Baso % (Auto) 0.4 (0-2) % Neut # (Auto) 7400 H (9201-9775) /uL Lymph # (Auto) 2100 (1343-4752) /uL [place] # (Auto) 1000 H (0-900) /uL Eos # (Auto) 100 (0-450) /uL Baso # (Auto) 0 (0-100) /uL PT 12.5 (9.4-12.5) SECONDS INR 1.1 (0.9-1.3) APTT 31 (25.1-36.5) SECONDS Sodium 136 L (137-145) mmol/L Potassium 4.0 (3.4-5.1) mmol/L Chloride 109 H (98-107) mmol/L Carbon Dioxide 16 L (22-32) mmol/L BUN 37 H (7-17) mg/dL Creatinine 1.48 H (0.52-1.04) mg/dL Estimated GFR 39 L (>60) mL/min BUN/Creatinine Ratio 25.0 H (6-22) Glucose 119 H (70-99) mg/dL Calcium 8.6 (8.4-10.2) mg/dL Total Bilirubin 0.9 (0.2-1.3) mg/dL AST 66 H (14-36) IU/L ALT 45 H (<35) IU/L Alkaline Phosphatase 103 (38-126) U/L Total Creatine Kinase 103 (30-135) U/L Troponin I 0.561 H* (0.01-0.034) ng/mL Total Protein 6.1 L (6.3-8.2) g/dL Albumin 2.7 L (3.5-5.0) g/dL Globulin 3.4 (1.7-4.1) g/dL Albumin/Globulin Ratio 0.8 L (1.0-2.8) Point of Care Testing Glucose POC 120 Imaging Data Chest x-ray: Radiologist Impression: [address] [address] XRay Report Signed Patient: Altagracia Zhu MR#: [id number] : 1960 Acct:[id number] Age/Sex: 64 / F Date of Service: 03/03/25 Loc: ED Accession Number: [id number] Procedure: XR chest 1V Ordering Provider: Belen Lujan D.O. PROCEDURE: XR CHEST 1V INDICATIONS: Possible stroke TECHNIQUE: One view of the chest was acquired. COMPARISON: None. FINDINGS: Surgical changes and devices: None. Lungs and pleura: Small to moderate left pleural effusion with left basilar infiltrate/atelectasis. Right lung is clear. No pneumothorax. Mediastinum: Mediastinal contours appear normal. Heart size is enlarged. Bones and chest wall: No suspicious bony lesions. Overlying soft tissues appear unremarkable. IMPRESSION: Small to moderate left pleural effusion and left basilar infiltrate/atelectasis. No pneumothorax. CT scan - head: Radiologist Impression: [address] [address] [address] Scan Report Signed Patient: Altagracia Zhu MR#: [id number] : 1960 Acct:[id number] Age/Sex: 64 / F Date of Service: 03/03/25 Loc: ED Accession Number: [id number] Procedure: CT head/brain wo con Ordering Provider: Belen Lujan D.O. PROCEDURE: CT HEAD/BRAIN WO CON INDICATIONS: weaker than normal prior cva TECHNIQUE: Noncontrast 4.5 mm thick angled axial sections acquired from the foramen magnum to the vertex, with coronal and sagittal reformats. For radiation dose reduction, the following was used: automated exposure control, adjustment of mA and/or kV according to patient size. COMPARISON: [facility], CR, XR CHEST 1V, 03/03/2025, 15:56. (Additional prior imaging is not available for review from the archive at the time of this dictation.) FINDINGS: Image quality: This examination is limited by involuntary motion artifact. CSF spaces: Basal cisterns are patent. No extra-axial fluid collections. The ventricles are symmetric in size and shape. Brain: No intracranial bleeds or mass effect. There is cerebral volume loss, with resultant ventricular and sulcal prominence. There are periventricular and deep white matter chronic small vessel ischemic changes. There is intracranial internal carotid artery atherosclerosis. Skull and face: Calvarium and visualized facial bones appear intact, without suspicious lesions. Sinuses: Visualized sinuses and mastoids are clear. IMPRESSION: No acute intracranial hemorrhage is seen. No acute intracranial pathology. If there is strong clinical suspicion for an acute stroke, please consider a brain MRI for further evaluation, as it is more sensitive (assuming that there is no contraindication to MRI). Dictated by: Brian Saldaña M.D. on 03/03/2025 at 15:14 Approved by: Brian Saldaña M.D. on 03/03/2025 at 15:19 ECG Data Interpretation: Sinus Tach 108 RAD NC 156 HR 108 QRS [address]-t wave change No old ekg to compare against MDM Narrative Medical decision making narrative: All lab work vital signs nurse triage note medication list previous ER visits and previous imaging modalities review. Head CT did not show any acute process or any intracranial hemorrhage. CTA of the chest did not show any acute PE trace bilateral pleural effusion and mild soft tissue anasarca. Troponin 1st set was elevated at 0.561 and subsequently on 2nd set was 0.595 EKG shows sinus tach at heart rate of [address] T wave changes. Case discussed with quantitative developer Dr. Palacios with heart score of 8 advised no anticoagulation at this given neurological presentation advised echo and admission to the hospitalist service. Case discussed with hospitalist who has graciously accepted patient for inpatient admission. Differential diagnosis includes STEMI NSTEMI PE CVA TIA subdural hemorrhage pneumothorax rib fractures. Patient on reexamination is back to her baseline she has no other neurological deficits on exam at this time her speech is back to normal she still continues to have the chronic left sided residual weakness. Pt given Asa 325mg PO x 1. Discharge Plan Departure Patient Disposition: Admitted as Observation Clinical Impression: Brain TIA, Elevated troponin Admit Date/Time: 03/03/25 20:44
--- NOTE | 2025-03-03 18:58 | DI.CT.S_ITS ---
PROCEDURE: CT ANGIO CHEST PE PROTOCOL INDICATIONS: syncope TECHNIQUE: After the administration of intravenous contrast, 2 mm thick sections acquired from the pulmonary apices to the posterior costophrenic angles. 3-dimensional maximum intensity projection (MIP) coronal and sagittal reformats were then acquired through the thorax. For radiation dose reduction, the following was used: automated exposure control, adjustment of mA and/or kV according to patient size. COMPARISON: [facility], , XR CHEST 1V, 03/03/2025, 15:56. FINDINGS: Image quality: Diagnostic. Pulmonary arteries: There is poor opacification of the distal segmental and subsegmental pulmonary arteries related to the timing of the contrast bolus Pulmonary arteries are normal in size, and demonstrate no intraluminal filling defects to suggest central pulmonary embolism. Lower Neck: No enlarged lymph nodes. Thyroid: No thyroid nodules which require sonographic follow up, per consensus guidelines. Axillae: No enlarged lymph nodes. Chest Wall: Mild soft tissue anasarca. Edema and skin thickening in the breasts, greater on the left than on the right, possibly related to dependent edema. Oval 3 cm circumscribed lesion in the left breast at the lower outer quadrant. Bones: Unremarkable. Lungs and Pleura: Trace bilateral pleural effusions with mild adjacent atelectasis. No consolidation or suspicious nodules. Heart: Heart size is enlarged. Small pericardial effusion. Moderate to severe chronic artery calcifications. Thoracic Vessels: No aortic aneurysm. Mediastinum and Mariah: No enlarged lymph nodes. Esophagus: No wall thickening. No hiatal hernia. Upper Abdomen: Reflux of contrast material into the hepatic veins. Visualized upper abdomen solid organs and bowel loops appear normal. IMPRESSION: 1. No acute central pulmonary embolus. Distal pulmonary arteries are poorly opacified due to the timing of the contrast bolus and are not well evaluated. 2. Cardiomegaly. Small pericardial effusion. 3. Trace bilateral pleural effusions. 4. Mild soft tissue anasarca. 5. Nonspecific circumscribed 3 cm lesion in the left breast, possibly a cyst. Recommend correlation with any prior mammograms if available. Outpatient diagnostic mammogram and ultrasound could be performed for further evaluation if indicated clinically. Approved by: Virgil Rachel M.D. on 03/03/2025 at 19:57
[2025-03-03 19:38] LABS: Troponin I 0.595 ng/mL (0.01-0.034)
--- NOTE | 2025-03-03 19:52 | PC.NURSE ---
Pt declines straight cath to obtain urine sample.
--- NOTE | 2025-03-03 20:58 | DI.MRI.S_ITS ---
PROCEDURE: MR HEAD/BRAIN WO CON INDICATIONS: tia TECHNIQUE: Non-contrast axial T1 spin echo, axial T2 fast spin echo, sagittal and axial FLAIR, coronal T2 fast spin echo, axial gradient echo, axial diffusion and ADC through the brain. COMPARISON: [facility], CT, CT HEAD/BRAIN WO CON, 03/03/2025, 15:57. [facility], MR, MR STROKE, 01/23/2021, 7:55. FINDINGS: Image quality: This examination is limited by involuntary motion artifact. CSF spaces: Ventricles appear symmetric in size and shape. Basal cisterns are patent. No extra-axial fluid collections. Brain: There is abnormal diffusion-weighted signal seen along the right ELIDIA territory, with associated dark signal on the ADC map. Developing increased FLAIR weighted signal can be seen within this area. Focal prior infarct can be seen involving the deep white matter of the right frontal lobe, with involvement of the right basal ganglia, with volume loss and encephalomalacia. No intracranial bleeds or mass effects. There is cerebral volume loss for age. There are periventricular and deep white matter chronic small vessel ischemic changes. Brainstem appears normal. Diffusion-weighted images show no acute infarct. Normal intravascular flow voids are present. Skull and face: Calvarial bone marrow is normal in signal. Orbits are normal. Sinuses: Sinuses and mastoids are clear. IMPRESSION: There is a subacute right ELIDIA territory infarction. There is a remote infarction involving the deep white matter/basal ganglia on the right-side. Dictated by: Brian Saldaña M.D. on 03/04/2025 at 14:40 Approved by: Brian Saldaña M.D. on 03/04/2025 at 14:45
[2025-03-03] MEDS: SODIUM CHLORIDE 0.9% 1,000 ML 75 ML IV (21:50)
--- NOTE | 2025-03-03 22:16 | PC.NURSE ---
Bedside swallow completed. Patient able to eat ice chips and drink water with no complications.
[2025-03-03] MEDS: ASPIRIN EC 325 MG TABLET PO (22:22)
[2025-03-03] MEDS: HEPARIN 5,000 UNIT/ML VIAL 5000 UNIT SUBCUT (22:22)
[2025-03-04] VITALS (39 sets, daily range): BP systolic 55–191; BP diastolic 39–138; PULSE 72–117; RESP 16–38; TEMP 35.6–36.4; O2SAT 69–100
--- NOTE | 2025-03-04 00:02 | PM.HP.1 ---
History of Present Illness History of Present Illness Chief complaint: General Weakness Narrative: 64-year-old female with past medical history of CVA with chronic left-sided weakness, hypertension, hyperlipidemia presents with slurred speech and reported right-sided weakness. Reports the patient woke up this morning was going to the bathroom assisted by her when she fell onto the right side he could not get up. The patient did call EMS but the patient refused transport and subsequently again at 2 PM the patient attempted to go to the bathroom and fell again. At that time the patient has been noted that the patient had slurred speech for not about an hour to an hour and a half. Otherwise there is no report of any recent fever, chills, nausea, vomiting, diarrhea, chest pain, syncope. Denies any head injury. In the emergency room, the patient was hemodynamically stable and patient was nonfocal on exam per ER physician. Patient CT scan of the head without contrast shows no acute finding. Chest x-ray shows small to moderate left pleural effusion with left basilar infiltrate but no pneumothorax. CT angio of the chest did not show any acute PE and only show trace bilateral pleural effusion. Initial troponin was 0.56 and repeated was 0.59. EKG shows sinus tachycardia without any ST or T wave changes. Our ER physician did call the freight broker Dr. Gretta Multani on-call who recommended that this was most likely be related to possible stroke. However he recommended that we admit the patient and obtain MRI of the brain in the morning as well as obtaining stress echo if there is no sign of stroke. The patient was given aspirin full dose I asked her new neurological symptoms slurred speech and right-sided weakness resolved completely. [facility] Medical History (Updated 03/03/25 @ 20:40 by Rahat Hardwick DO) Scoliosis Dupuytrens contracture Surgical History (Updated 01/23/21 @ 03:08 by REMY Cui) History of thumb surgery History of tubal ligation Family History (Updated 01/23/21 @ 06:28 by REMY Cui) Father Stroke Mother Blood disease Social History household members: spouse Smoking Status: Never smoker Meds Home Medications and Allergies Home Medications Medication Instructions Recorded Confirmed Type aspirin 81 mg tablet,delayed 81 mg PO DAILY #30 tabs 01/25/21 Rx release atorvastatin 20 mg tablet (Lipitor) 80 mg (4 x 20 mg) PO BEDTIME #30 01/25/21 Rx tabs clopidogrel 75 mg tablet (Plavix) 75 mg PO DAILY #30 tabs 01/25/21 Rx lisinopril 10 mg tablet 10 mg PO DAILY #30 tabs 01/25/21 Rx Allergies Allergy/AdvReac Type Severity Reaction Status Date / Time No Known Drug Allergies Allergy Verified 01/22/21 20:42 Review of Systems Review of Systems ROS: Yes All systems reviewed with the patient and are negative except as otherwise documented Exam Vital Signs (past 8 hours): - 03/03/25 16:03 03/03/25 16:30 03/03/25 17:00 Temperature Pulse Rate 107 H 109 H 107 H Respiratory Rate Blood Pressure Pulse Oximetry 96 96 97 Oxygen Delivery Method Oxygen Flow Rate 03/03/25 18:05 03/03/25 18:30 03/03/25 19:38 Temperature Pulse Rate 74 107 H Respiratory Rate Blood Pressure 116/70 Pulse Oximetry 57 L 89 L Oxygen Delivery Method Oxygen Flow Rate 03/03/25 19:39 03/03/25 19:39 03/03/25 20:00 Temperature Pulse Rate 106 H Respiratory Rate Blood Pressure 133/93 H 126/93 H Pulse Oximetry 89 L Oxygen Delivery Method Oxygen Flow Rate 03/03/25 20:00 03/03/25 20:30 03/03/25 20:30 Temperature Pulse Rate Respiratory Rate Blood Pressure 123/94 H Pulse Oximetry 92 86 L Oxygen Delivery Method Oxygen Flow Rate 03/03/25 21:00 03/03/25 21:00 03/03/25 21:50 Temperature 96.3 F L Pulse Rate 106 H 106 H Respiratory Rate 26 H 20 Blood Pressure 135/82 138/98 H Pulse Oximetry 99 97 Oxygen Delivery Method Room Air Oxygen Flow Rate 0 Oxygen Delivery Method Room Air Oxygen Flow Rate 0 Narrative Exam Narrative: Physical Exam: GENERAL: The patient is not in any acute distressed. Awake and alert. HEENT: Nonicteric sclerae, PERRLA, EOMI. Oropharynx clear. Moist mucous membranes. Conjunctivae appear well perfused. HEART: Regular rate and rhythm without murmurs. No lower extremities edema. LUNGS: Clear to auscultation bilaterally. No wheezing, crackles or rhonchi ABDOMEN: Soft, positive bowel sounds, nontender. SKIN: No rash, no excessive bruising, petechiae, or purpura. NEUROLOGIC: AxO x 3. Known left sided wekness otherwise normal speech. Cranial nerves II-XII intact without motor/sensory deficit. Objective Labs 03/03/25 15:45 03/03/25 15:45 Labs: Laboratory Results - last 24 hr 03/03/25 03/03/25 15:45 19:05 WBC 10.6 RBC 5.53 H Hgb 16.3 H Hct 49.7 H MCV 89.9 MCH 29.5 MCHC 32.9 RDW 16.5 H Plt Count 184 Neut % (Auto) 69.8 Lymph % (Auto) 19.9 L [place] % (Auto) 9.4 Eos % (Auto) 0.5 L Baso % (Auto) 0.4 Neut # (Auto) 7400 H Lymph # (Auto) 2100 [place] # (Auto) 1000 H Eos # (Auto) 100 Baso # (Auto) 0 PT 12.5 INR 1.1 APTT 31 Sodium 136 L Potassium 4.0 Chloride 109 H Carbon Dioxide 16 L BUN 37 H Creatinine 1.48 H Estimated GFR 39 L BUN/Creatinine Ratio 25.0 H Glucose 119 H Calcium 8.6 Total Bilirubin 0.9 AST 66 H ALT 45 H Alkaline Phosphatase 103 Total Creatine Kinase 103 Troponin I 0.561 H* 0.595 H* Total Protein 6.1 L Albumin 2.7 L Globulin 3.4 Albumin/Globulin Ratio 0.8 L Assessment & Plan Assessment & Plan narrative: Concern for TIA with slurred speech and reported new right sided weakness. Admit the patient to medical telemetry as observation. Of note patient symptoms of slurred speech and right-sided weakness completely resolved. Patient still have residual left-sided weakness. CT brain without contrast shows no acute finding. Will continue PT/OT/ST and aspirin. Will obtain brain MRI in the morning. Elevated [place]. Of note. Troponin was 0.56 and repeat 0.59. Patient denies any chest pain. EKG shows no acute ST or T wave changes. Per freight broker on-call would recommend MRI of the brain to rule out stroke. However there is no stroke and troponin continues to rise consider obtaining stress echo in the morning. Continue to trend troponin and continue aspirin. Hypertension. Resume home medication depending on blood pressure. Hyperlipidemia. Resume statin and check A1c. DVT prophylaxis heparin subcu. CODE STATUS full code. Disposition likely home in 1 to 2 days. - As the provider of this telehealth evaluation, requested by the patient's evaluating physician, I attest that I introduced myself to the patient, provided my credentials and determined that telemedicine via a real-time, 2 way interactive audio and video platform is an appropriate and effective means of providing this service. - I reviewed the patient's chart and had a discussion with the member of the patient's treatment team. - The patient and I mutually agreed with continuation of this evaluation via telemedicine. The patient consented for the telemedicine evaluation. - This virtual encounter was taken place from [place]. The encounter was approximately 35 minutes. The nurse was present during the entire time of the encounter and was able to move the stethoscope in appropriate directions. The patient was evaluated at [facility]. Time-Based Coding :: [TOTAL MINUTES] spent with patient and on the chart (including review of chart, obtaining history, exam, reviewing outside data, placing orders, documenting exam and treatment plan, and counseling patient) on [DATE].
[2025-03-04] MEDS: ASPIRIN EC 81 MG TABLET PO (08:45)
[2025-03-04] MEDS: CLOPIDOGREL 75 MG TABLET PO (08:45)
[2025-03-04] MEDS: HEPARIN 5,000 UNIT/ML VIAL 5000 UNIT SUBCUT ×2 (08:45→20:50)
[2025-03-04] MEDS: lisinopriL 10 MG TABLET PO (08:45)
[2025-03-04] MEDS: SODIUM CHLORIDE 0.9% FLUSH 10 ML IV ×2 (08:47→20:50)
[2025-03-04] MEDS: SODIUM CHLORIDE 0.9% 1,000 ML 75 ML IV (11:07)
--- NOTE | 2025-03-04 11:15 | PT.IIE ---
Surgical History (Last Updated 01/23/21 @ 03:08 by REMY Cui) History of thumb surgery History of tubal ligation Medical History (Last Updated 01/23/21 @ 03:08 by REMY Cui) Dupuytrens contracture Scoliosis Physical Therapy Inpatient Evaluation/Re-Eval M1 PT/OT-IP Prior Functional Status Start: 03/04/25 12:35 Freq: NEEDED Status: Active Protocol: Document 03/04/25 11:15 AB (Rec: 03/04/25 12:53 AB [id number]) Medical Review Prior Functional Status Medical History Reviewed Yes Communication able to make needs known Mobility and Gait pt stated that she mostly stays in bed, spouse assists her to get up onto a w/c to use the toilet if needed. spouse squat/stand pivots pt to transfer without AD Social History Household Members spouse Living Arrangements Other Number of Stairs To Enter/Railing? pt lives in a boat: pt stated that the fire dept assists her to get in/out of the boat home set up info obtained from previous admission EMR: 3 steps up a ladder to boat and then climbs over boat railing; 5 steps down the ladder +2 more steps into the living area Home Environment High Toilet,Tub/Shower M2 PT-IP Current Condition Start: 03/04/25 12:35 Freq: NEEDED Status: Active Protocol: Document 03/04/25 11:15 AB (Rec: 03/04/25 12:53 AB [id number]) Physical Therapy Current Condition Current Condition Evaluation Date 03/04/25 Treatment Diagnosis CVA; generalized weakness Onset Date 03/03/25 M3 PT-IP Subjective Start: 03/04/25 12:35 Freq: NEEDED Status: Active Protocol: Document 03/04/25 11:15 AB (Rec: 03/04/25 12:53 AB [id number]) Subjective Physical Therapy Visit Type Type Initial Evaluation Visit Start Time 11:15 Visit Stop Time 11:35 Number of LAW FIRM ADMINISTRATOR Visits 0 Physical Therapy Visit Comments Patient Comments want to use the toilet M4 PT-IP Mobility and Gait Start: 03/04/25 12:35 Freq: NEEDED Status: Active Protocol: Document 03/04/25 11:15 AB (Rec: 03/04/25 12:53 AB [id number]) PT-Bed Mobility Assessment Supine to Sit Supine to Sit Total Assistance,2 Person Assistance,Head of Bed Elevated Sit to Supine Sit to Supine Total Assistance,2 Person Assistance Scooting Scooting to Edge of Bed Dependent PT-Transfer Assessment Comments Mobility Comments pt supine in bed. pt wants to use the toilet. BP checked: 145/96. obtained PLOF and home set up from pt. noted L sided flaccid UE/LE. completed supine to sit total A x 2 and max cues. pt required max A x 1 for sitting balance. unable to maintain sitting balance without assistance. increase posterior and lateral leaning to the L. total A x 2 to scoot to EOB. informed pt that transferring to the toilet is not going to be safe at this time since pt is unable to maintain sitting balance without AD. assisted pt back to bed total A x 2 and max cues. positioned pt in bed total A x 2. Nurse and NAC assisted pt with bed hernandez use. Left pt with nurse. informed case folder regarding pt's PLOF and current mobility needs. PT-Balance Assessment Sitting Balance and Reactions Static Sitting Balance Ability Poor Dynamic Sitting Balance Ability Poor Standing Balance and Reactions Device Used NT M5 PT-IP Objective Assessments Start: 03/04/25 12:35 Freq: NEEDED Status: Active Protocol: Document 03/04/25 11:15 AB (Rec: 03/04/25 12:53 AB [id number]) Orientation Orientation/Cognition Level of Alertness Alert Orientation Name Safety Awareness Decreased Safety Awareness Gross Range of Motion Lower Extremity ROM Assessment Within Functional Limits Strength Lower Extremity Strength Assessment Bilaterally Impaired Comments Strength Comments RLE: 3+/5 LLE: 0/5 Muscle Tone Muscle Tone WNL No Muscle Tone Location Left Lower Extremity Type of Tone Hypotonicity Severity of Tone Severe M6 PT-IP Treatment Start: 03/04/25 12:35 Freq: NEEDED Status: Active Protocol: Document 03/04/25 11:15 AB (Rec: 03/04/25 12:53 AB [id number]) Physical Therapy Treatment Education Education Provided Safety M7 PT-IP Assessment and Plan Start: 03/04/25 12:35 Freq: NEEDED Status: Active Protocol: Document 03/04/25 11:15 AB (Rec: 03/04/25 12:53 AB [id number]) PT Summary Assessment and Plan Potential Rehabilitation Potential Poor Status of Condition at Evaluation Evolving Summary Impairments Pain,ROM,Strength,Balance, Coordination,Sensation,Tone, Cognition,Bed Mobility, Transfers,Gait,Activity Tolerance Assessment Summary pt is a 64 y/o F who is admitted for CVA. pt with previous h/o CVA with L sided weakness. pt requiring total A x 2 with bed mobility and with poor sitting balance requiring max A and max cues. pt unable to maintain sitting balance without assist. recommending mechanical lift transfers with nursing staff. pt will require 24/7 assist and eventually LTC placement. Will need further assessment to determine safe d/c plan. Goals Bed Mobility Goal Moderate Assistance Transfer Goal Moderate Assistance Days to Meet Goals 10 Frequency of Treatment Frequency Of Treatment Once a Day Treatment Plan Physical Therapy Treatment Plan Bed Mobility Training,Transfer Training,Gait Training, Therapeutic Exercise,Balance Retraining,Discharge Planning, Hot or Cold Pack,Neuromuscular Re-ed,Coordination Retraining ,Manual Therapy Precautions Other Precautions falls Recommendations To Nursing Amount of Assist Needed Mechanical Lift Discharge Recommendations PT Discharge Recommendations Home with 24/7 Assist Available,Home Health,SNF Rehab Transportation Needs at Discharge Stretcher/Ambulance - PT assist 2
--- NOTE | 2025-03-04 11:19 | ST.IPCSEOM ---
Visit Care Team Role Provider Type Rahat Hardwick DO Emergency Provider Physician Referring Provider Specialty: Emergency Medicine Address: [address] [place] [address], [address] Phone: Fax: Email: [email or web address] Fernando Girard MD Admit Provider Physician Attending Provider Specialty: Internal Medicine Address: [address] [place] [address], [id number] Email: [email or web address] Past Medical History (Last Updated 01/23/21 @ 03:08 by REMY Cui) Dupuytrens contracture (Medical) Scoliosis (Medical) Speech-Language Pathology Swallow Evaluation CLIENT SERVICE REPRESENTATIVE Clinical Swallow Evaluation Start: 03/04/25 10:50 Freq: Status: Active Protocol: Document 03/04/25 10:51 MA (Rec: 03/04/25 11:19 MA Desktop) Clinical Swallow Evaluation Session Time Visit Start Time 10:15 Visit Stop Time 10:50 Total Visit Minutes 35 Visit Information Visit Number [address] Girard Reason for Referral CVA Setting Assessment Location Acute Care Visit Type Note Type Initial evaluation Next Note Type Next Note Type Treatment Note Patient Information Identification Type Name,Wristband History Per H&P: 64-year-old female with past medical history of CVA with chronic left-sided weakness, hypertension, hyperlipidemia presents with slurred speech and reported right-sided weakness. Reports the patient woke up this morning was going to the bathroom assisted by her when she fell onto the right side he could not get up. The patient did call EMS but the patient refused transport and subsequently again at 2 PM the patient attempted to go to the bathroom and fell again. At that time the patient has been noted that the patient had slurred speech for not about an hour to an hour and a half. Otherwise there is no report of any recent fever, chills, nausea, vomiting, diarrhea, chest pain, syncope. Denies any head injury. In the emergency room, the patient was hemodynamically stable and patient was nonfocal on exam per ER physician. Patient CT scan of the head without contrast shows no acute finding. Chest x-ray shows small to moderate left pleural effusion with left basilar infiltrate but no pneumothorax. CT angio of the chest did not show any acute PE and only show trace bilateral pleural effusion. Initial troponin was 0.56 and repeated was 0.59. EKG shows sinus tachycardia without any ST or T wave changes. Our ER physician did call the insulation and flooring assembler Dr. Gretta Multani on -call who recommended that this was most likely be related to possible stroke. However he recommended that we admit the patient and obtain MRI of the brain in the morning as well as obtaining stress echo if there is no sign of stroke. The patient was given aspirin full dose I asked her new neurological symptoms slurred speech and right-sided weakness resolved completely. PMHx significant for: Scoliosis Dupuytrens contracture Pt referred for ST evaluation d/t CVA. ST to assess speech/ swallow/cognition. Subjective Observations Nursing reports Pt has been coughing on water, especially with use of straw, however exhibited no difficulties swallowing pills in applesauce . Pt was seen sitting upright in bed up on ST entering room. Ox4. Pt was agreeable to a speech/language evaluation at that time. Of note, left facial droop was noted and a slight slur of speech. Pt reports she is at baseline with speech/cognition/swallow from a stroke 4 years ago and reports the only noticeable change with this stroke is dry mouth. Pt reports hx of coughing on thin liquids at home and then burping right after. She denies hx of PNA. Pt reports she consumes primarily soft solids and thin liquids at home. Reported by Patient/Caregiver Other Symptoms Coughing,Difficulty swallowing liquids,Difficulty swallowing solids Current Diet NPO Baseline Feeding Method Needs some assistance The IDDSI Framework Protocol: IDDSI.1 Objective Assessment Mental Status Alert,Responsive,Cooperative, Lethargic Comment Pt with natural dentition, however missing several teeth. Overall lingual and labial weakness and reduced ROM. Slight left sided facial droop . Food and Liquid Trials Position During Assessment Upright (90 degrees) Liquids Trialed Ice chips,Thin (IDDSI 0) Solid Trials Purred (IDDSI 4),Minced & Moist (IDDSI 5) Administration Type Tea spoon,Cup single sip,Needs some assistance Oral Impairment Moderately impaired Oral Phase Comments Pt consumed ice chips via spoon, thin water via spoon, thin water via cup, milk via cup, applesauce, willi cracker soaked in milk. For thin liquids Pt exhibited good oral acceptance and containment, suspected loss of bolus resulting in premature spillage. For applesauce Pt exhibited good oral acceptance and containment, timely ap transport and mastication. For moistened willi cracker, Pt demonstrated prolonged/slow mastication, mild-mod diffuse oral stasis, piecemeal deglutition. Pharyngeal Impairment Moderately impaired Pharyngeal Phase Comments For all liquids Pt exhibited immediate coughing. She reports this is her baseline and she also burps at the end. Pt with strong productive cough. Pt exhibited reduced coughing with thin water via tsp as well as when drinking milk. Slight throat clearing also noted. Pt exhibited no overt s/s of aspiration, such as coughing or choking with solids. Fatigue/Endurance Mild fatigue The IDDSI Framework Protocol: IDDSI.1 Findings Swallowing Function Oropharyngeal phase dysphagia Severity of Swallow Impairment Moderately impaired Prognosis Fair Impact on Safety and Functioning Risk for aspiration,Risk for inadequate nutrition/hydration Recommendations Instrumental Assessment Yes Swallowing Treatment Yes Frequency Daily while inpatient Recommended Solids Minced & Moist (IDDSI 5) Recommended Liquids Thin (IDDSI 0) Other Recommendations ST recommends IDDSI 5 (minced and moist) with thin liquids- water only, small sips, preferably use of spoon only with thin water. ST educated Pt on safe swallowing strategies, as wellas nursing and importance of small sips and consistent oral care. ST communicated with provider (Dr Abrhaan Gordon) recommendation for Pt to have a MBS to further analyze oral and pharyngeal phases of the swallow. Safety Precautions/Swallowing Supervision needed for all Recommendations meals,Remain upright (90 degrees) during all oral intake,Needs verbal cues to use recommended strategies, Upright position at least 30 minutes after meals,Small bites and sips when eating,No straw,Alternate liquids and solids,Set-up assistance, Strict oral care after intake, Check for pocketing Medication Recommendations As Tolerated Education Patient/Caregiver Education Described results of evaluation,Patient expressed understanding of evaluation, Patient expressed agreement with goals & treatment plans, Patient requires further education/training,Family/ caregivers require further education/training Goals Short-term Goals STG 1: Patient will participate in MBS to further analyze the swallow. STG 2: Pt will tolerate prescribed diet with <5% overt s/s of aspiration/dysphagia with use of compensatory swallowing strategies and minimal cues. STG 3: Patient will utilize safe swallowing strategies 90% of the time with minimal verbal cues in order to consume safest and most efficient least restrictive diet. Long-term Goals LTG: Patient will tolerate safest and most efficient diet with no clinical s/s of aspiration or dysphagia 100% of the time in order to consume least restrictive diet .
--- NOTE | 2025-03-04 11:35 | OT.IP.EVAL ---
Past Medical History (Last Updated 01/23/21 @ 03:08 by REMY Cui) Dupuytrens contracture Scoliosis Surgical History (Last Updated 01/23/21 @ 03:08 by REMY Cui) History of thumb surgery History of tubal ligation Occupational Therapy Inpatient Evaluation/Re-Eval M2 OT-IP Current Condition Start: 03/04/25 12:17 Freq: Status: Active Protocol: Document 03/04/25 12:24 [facility] (Rec: 03/04/25 12:45 [facility] Desktop) Occupational Therapy Current Condition Current Condition Evaluation Date 03/04/25 Treatment Diagnosis Syncope, right weakness, possible CVA/TIA Diagnosis Onset Date 03/03/25 M3 OT- IP Subjective and Pain Start: 03/04/25 12:17 Freq: Status: Active Protocol: Document 03/04/25 12:24 [facility] (Rec: 03/04/25 12:45 [facility] Desktop) OT- Subjective Occupational Therapy Visit Type Type Initial Evaluation Visit Start Time 11:10 Visit Stop Time 11:35 Occupational Therapy Visit Comments Patient Comments Pt wanting to get up to use the BSC. OT Pain Assessment Pain When Pain Assessed At Rest Pain Present Pain Present Denied Pain M4 OT- IP ADL's Start: 03/04/25 12:17 Freq: Status: Active Protocol: Document 03/04/25 12:24 [facility] (Rec: 03/04/25 12:45 [facility] Desktop) OT [id number] Comments OT Self-Feeding Comments Not at meal time, please see FINANCIAL AID COORDINATOR eval. OT ADL-Grooming Comments OT Grooming Comments Not performed. OT ADL-Oral Care Comments Oral Care Comments Not performed. OT ADL-Dressing General Eval Lower Body Dressing Ability Total Assistance OT ADL-Toileting General Evaluation Toileting Ability Total Assistance Comments OT Toileting Comments Use of bed hernandez due to poor static balance at this time. OT ADL-Bathing Bathing Type Bathing Type Sponge Bath Comments OT Bathing Comments Sponge bath more appropriate at this time. Per pt states transfers to the shower chair/bench and assist with her showers. Pt is questionable historian , however unable to contact pt's as no phone number in the medical chart for him. M5 OT- IP IADL's Start: 03/04/25 12:17 Freq: Status: Active Protocol: Document 03/04/25 12:24 [facility] (Rec: 03/04/25 12:45 [facility] Desktop) OT-Instrumental Activities of Daily Living Medication Management Medication Management Caregiver Administers Money Management Money Management Caregiver Provides Assistance Meal Preparation Meal Preparation Caregiver Provides Assist Department Of Natural Resources Officer Department Of Natural Resources Officer Caregiver Provides Assist M6 OT- IP Functional Cognition Start: 03/04/25 12:17 Freq: Status: Active Protocol: Document 03/04/25 12:24 [facility] (Rec: 03/04/25 12:45 [facility] Desktop) Cognitive Factors Limiting Selfcare Function Cognitive Ability Level of Alertness Alert,Drowsy Patient Orientation Name Attention Span Ability Capable of Focused Attention, Unable to Sustain Attention Ability to Follow Commands Able to Follow One Step Commands with Increased Time, Able to Follow One Step Commands with Repetition Cognitive Comments Cognitive Assessment Comments Pt very drowsy able to follow simple commands. Pt focused on getting up to use the toilet, however at this time needing MAXA for sitting balance. It would be helpful to speak to her regarding prior level of care. Per pt states she mainly just stays in bed, and that she only gets up to use the bathroom. OT- Vision and Hearing OT- Vision Assessment Vision Assessment Comments Not able to assess at this time. M7 OT- IP Mobility and Balance Start: 03/04/25 12:17 Freq: Status: Active Protocol: Document 03/04/25 12:24 [facility] (Rec: 03/04/25 12:45 [facility] Desktop) OT- Bed Mobility Assessment Supine to Sit Supine to Sit Assist Total Assistance,2 Person Assistance,Head of Bed Elevated Sit to Supine Sit to Supine Assist Total Assistance,2 Person Assistance OT-Transfer Assessment Comments Mobility Comments Total assist x2 and heavily leans to the left. MAX AX 1 for sitting balance. BP 145/96 . At this time if having to transfer use of mechanical lift. In addition use of bed hernandez would be the safest. OT- Balance Assessment Sitting Balance and Reactions Static Sitting Balance Ability Poor Dynamic Sitting Balance Ability Poor M8 OT- IP Objective Assessments Start: 03/04/25 12:17 Freq: Status: Active Protocol: Document 03/04/25 12:24 [facility] (Rec: 03/04/25 12:45 [facility] Desktop) OT Gross Range of Motion Upper Extremity Range of Motion Assessment Left Impaired OT Strength Upper Extremity Strength Assessment Left Impaired Comments Strength Comments LUE very swollen throughout and pt not able to move the LUE at this time. RUE not able to fully assess but at least 3-/5. OT Sensation Assessment Edema Edema Present M9 OT- IP Assessment and Plan Start: 03/04/25 12:17 Freq: Status: Active Protocol: Document 03/04/25 12:24 [facility] (Rec: 03/04/25 12:45 [facility] Desktop) OT Summary Assessment and Plan Potential Rehabilitation Potential Fair Analytic Complexity at Evaluation High Summary OT Impairments Range of Motion,Strength, Balance,Coordination,Sensation ,Tone,Functional Cognition, Functional Mobility,Self- Feeding,Grooming,Dressing, Toileting,Bathing,Toilet Transfers,Shower Transfers, Activity Tolerance Progress Towards Goals Slow Progress due to Medical Issues,Slow Progress due to Activity Tolerance,Slow Progress due to Cognition Assessment Summary Pt high complexity and main barriers are decreased use of LUE, weakness, and decreased activity tolerance and balance . Pt needing total X 2 two to get to the edge of the bed at this time. not sure what truly was pt's baseline prior as pt questionable historian. Pt states was able to transfer with her to the bathroom with use of grab bar and assist. Pt states that she mainly just stays in bed and just gets up to use the bathroom. To work with pt again tomorrow to hopefully be able get more information of her prior status and see if pt able to make progress. At this time pt would benefit from possible SNF to help maximize mobility and ADL needs otherwise LTC/SHELTER. Goals Self-Feeding Goal Standby Assistance Grooming Goal Standby Assistance Toilet Transfer Goal Moderate Assistance Shower Transfer Goal Moderate Assistance Days to Meet Goals 30 Frequency of Treatment Other frequency 5x/week Treatment Plan OT Treatment Plan ADL Training,Functional Cognition Training,Functional Mobility,Neuromuscular Re- education,Patient/Family Education,Discharge Planning Discharge Recommendations OT Discharge Recommendations SNF Rehab,LTAC Transportation Needs at Discharge Stretcher/Ambulance
--- NOTE | 2025-03-04 13:45 | SLP.IPNOTE ---
MBS scheduled at 1500 tomorrow 03/05/2025. Nursing notified
--- NOTE | 2025-03-04 13:57 | PC.NURSE ---
Per nightshift RN, lab had attempted to draw patient multiple times for follow up troponin. SHOW HOST/HOSTESS attempted to obtain blood draw with use of ultrasound but was unable. Dr. Gordon notified and midline ordered.
--- NOTE | 2025-03-04 14:06 | DI.ECHO.S_ITS ---
[facility] [facility] +---------+ [facility] : : [address] : : [place] : : [id number] : : Phone: [phone] Echocardiogram Report + + :Name: AZAR WARD Study Date: 03/05/2025 Height: 62 in : :Hospital ReadingLocation: Weight: 170 lb : : Gender: Female BSA: 1.8 m2 : :: 1960 Age: 64 yrs BP: 109/77 mmHg: :Reason For Study: ELEVATED TROPONIN, ANASARCA, VOLUME OVERLOAD : :Ordering Physician: GAURAV, : :LAURIE LAMAS Performed By: Anjana Douglas : :Referring: LAURIE NOLASCO : + + Interpretation Summary Profound RV failure with severe pulmonary hypertension and wide-open tricuspid regurgitation. LV is small and underfilled. LV systolic function appears severely reduced. However, LV failure may be secondary to RV enlargement. Other findings as below. When compared to echo report dated 01/23/2021, RV failure has progressed. LV dysfunction is new Procedure: A two-dimensional transthoracic echocardiogram with color flow and Doppler was performed. The study quality was technically adequate. Comparison is made with the echocardiogram of 01/23/2021. The patient was in sinus tachycardia with heart rates between 95-100 bpm during the exam. Left Ventricle: The left ventricular cavity is small. The ejection fraction is estimated to be 30-35%. The interventricular septum is flattened, consistent with a right ventricular pressure/volume condition. Diastolic function could not be accurately assessed due to unobtainable data. Right Ventricle: The right ventricle is severely dilated. Right ventricular systolic function is severely reduced. Atria: The left atrial size is normal. The right atrium is severely dilated. There is no Doppler evidence for an interatrial shunt. Mitral Valve: The mitral valve leaflets appear moderately thickened, but open well. There is trace mitral regurgitation. Aortic Valve: The aortic valve is not well visualized. There is no aortic valve stenosis. There is trace aortic regurgitation. Tricuspid Valve: Tricuspid leaflets are thickened. The tricuspid annulus is dilated. There is severe tricuspid regurgitation. Right ventricular systolic pressure is estimated to be 77 mmHg plus the clinically estimated CVP which cannot be estimated on this exam. Pulmonic Valve: The pulmonic valve is not well visualized. There is trace pulmonic regurgitation. Great Vessels: The aortic root is normal size. The dimensions of the ascending aorta are normal. Patient was unable to follow directions for IVC sniff. The IVC has a measurement of 1.9 mm. Pericardium/ Pleura There is no pericardial effusion. There is a moderate left-sided pleural effusion. MMode/2D Measurements & Calculations LVIDd: 3.9 cm LVOT diam: 2.0 cm LVIDs: 3.4 cm Ao root diam: 3.1 cm FS: 13.3 % asc Aorta Diam: 3.4 cm IVSd: 0.85 cm Ao Arch Diam (Prox Trans): 3.0 cm LVPWd: 0.76 cm LV diallo. diameter/BSA (cm/m^2): 2.2 LV sys. diameter/BSA (cm/m^2): 1.9 LA A2 area: 12.1 cm2 RA long axis: 7.0 cm LA A4 area: 9.6 cm2 RA area: 26.9 cm2 LA length (vol): 5.0 cm RA vol: 87.4 ml LA vol: 19.6 ml RA : 49.0 ml/m2 LA vol index: 11.0 ml/m2 IVC diam: 1.9 cm RVD1 (basal): 5.4 cm RVD2 (mid): 4.2 cm TAPSE: 0.82 cm Doppler Measurements & Calculations Ao V2 max: 83.7 cm/sec LVOT Max Vladimir: 52.6 cm/sec Ao V2 mean: 57.6 cm/sec LV V1 max P.1 mmHg Ao max P.8 mmHg LV V1 VTI: 5.3 cm Ao mean P.5 mmHg DIVINE(I,D): 1.9 cm2 Ao V2 VTI: 8.7 cm DIVINE(V,D): 1.9 cm2 sev ratio: 0.62 DIVINE indexed to BSA (cm^2/m^2): 1.0 MV E max vladimir: 69.8 cm/sec TR max vladimir: 439.4 cm/sec Med Peak E' Vladimir: 8.7 cm/sec TR max P.2 mmHg E/E' med: 8.0 PA V2 max: 37.9 cm/sec Lat Peak E' Vladimir: 5.4 cm/sec PA V2 mean: 23.8 cm/sec E/E' lat: 13.0 PA mean P.27 mmHg E/e' average: 10.5 MV P1/2t: 24.1 msec MV P1/2t max vladimir: 70.2 cm/sec SV(LVOT): 16.1 ml MVA(2t): 9.1 cm2 Reading Physician:09:03 AM
[2025-03-04 14:19] LABS: Add Manual Diff / Slide Review NO; Basophils Absolute Auto 0 /uL (0-100); Basophils Percent Auto 0.3 % (0-2); Eosinophils Absolute Auto 0 /uL (0-450); Eosinophils Percent Auto 0.2 % (2-4); Hematocrit 51.3 % (36-46); Hemoglobin 16.5 g/dL (12.0-16.0); Lymphocytes Absolute Auto 2500 /uL (1100-4500); Lymphocytes Percent Auto 21.3 % (25-40); Mean Corpuscular HGB Conc 32.2 % (30-36); Mean Corpuscular Hemoglobin 29.1 PG (26-34); Mean Corpuscular Volume 90.3 fL (80-100); Monocytes Absolute Auto 800 /uL (0-900); Monocytes Percent Auto 7.2 % (3-14); Neutrophils Absolute Auto 8300 /uL (1500-7000); Platelet Count 182 X10^3/uL (150-400); Red Blood Cell Count 5.68 X10^6/uL (4.0-5.2); Red Cell Distribution Width 16.9 % (11.6-14.8); White Blood Cell Count 11.7 X10^3/uL (4.5-11.0)
--- NOTE | 2025-03-04 14:29 | PC.NURSE ---
Addendum entered by Kiersten Kohli R.N. 03/04/25 18:40: Pt spouse Fernando at bedside. Provider notified, provider at bedside. Spouse states, I'm using vibrations to help her, while rubbing patient's arms. Care ongoing. Addendum entered by Kiersten Kohli R.N. 03/04/25 17:01: Numerous attempts made to contact spouse at phone number given by patient and spouse at admit ([phone]). This RN inquired on increasing monitoring by making pt ICU level of care, provider Dr. oGrdon declined at this time. ABG being obtained by RT. Care ongoing. Addendum entered by Kiersten Kohli R.N. 03/04/25 16:10: NIH 17 prior to departure to MRI. To MRI at approximately 1455. Difficulty in assessing NIH due to baseline weakness/faccidity of left side. Pt back from MRI at approximately 15:24 to room 226. Pt unable to state name and , able to squeeze with right hand when asked. Pulse oximetry 94% on 2L NC, BP 116/86, HR 104 stach. at bedside. Pt NIH reassessed at 1604, NIH 34, again difficulty in assessing due to baseline flaccidity of left side. tearful, stated he was leaving for a bit. Provider notified of pt condition and NIH. Care ongoing. Original Note: Day shift: This RN assuming care of patient at 1400. Change in pt's mentation, provider at bedside. New orders received. Glucose finger stick 115, BP 130/88, HR 103 sinus tach, pulse oximetry 95% on RA. Spouse at bedside, updated by nursing and provider. MRI delayed. Care ongoing.
[2025-03-04 14:33] LABS: Alanine Aminotransferase 85 IU/L (<35); Albumin 2.9 g/dL (3.5-5.0); Albumin Globulin Ratio 0.8 (1.0-2.8); Alkaline Phosphatase 97 U/L (38-126); BUN Creatinine Ratio 25.3 (6-22); Bilirubin Total 1.1 mg/dL (0.2-1.3); Blood Urea Nitrogen 38 mg/dL (7-17); Calcium 8.3 mg/dL (8.4-10.2); Carbon Dioxide 13 mmol/L (22-32); Chloride 111 mmol/L (98-107); Estimated Glomerular Filt Rate 38 mL/min (>60); Globulin 3.5 g/dL (1.7-4.1); Glucose 109 mg/dL (70-99); HEMOLYSIS 85 (0-50); Magnesium 1.7 mg/dL (1.6-2.3); Potassium 4.9 mmol/L (3.4-5.1); Sodium 136 mmol/L (137-145); Total Protein 6.4 g/dL (6.3-8.2)
[2025-03-04 14:34] LABS: Aspartate Aminotransferase 122 IU/L (14-36)
[2025-03-04 14:57] LABS: Creatine Kinase 79 U/L (30-135)
[2025-03-04 15:11] LABS: Troponin I 0.468 ng/mL (0.01-0.034)
[2025-03-04 15:11] LABS: Cholesterol 239 mg/dL (140-199); HDL Cholesterol 26 mg/dL (40-60); LDL Cholesterol Calculated 175 mg/dL (<100); Triglycerides 189 mg/dL (35-150)
--- NOTE | 2025-03-04 16:30 | PM.PN.1 ---
Subjective Subjective Interval history: 64 F admitted with a stroke. She has become progressively more somnolent throughout the day. MRI showed subacute R ELIDIA infarct (not likely related to presenting R sided symptoms but does fit with current symptoms). Troponin did peak and downtrended this afternoon. More edematous over the day with IV fluids which were discontinued. Exam Vital Signs (past 8 hours): - 03/04/25 08:45 03/04/25 09:00 03/04/25 12:08 Temperature 97.6 F Pulse Rate 109 H 97 H 106 H Respiratory Rate 18 18 Blood Pressure 137/102 H 145/96 H Pulse Oximetry 97 97 Oxygen Flow Rate 0 0 Oxygen Delivery Method Room Air Oxygen Flow Rate 0 Narrative Exam Narrative: Physical Exam: GENERAL: The patient is lethargic, difficult to arouse but will follow commands. oriented to name. voice soft and difficult to hear. HEART: Regular rate and rhythm without murmurs. No lower extremities edema. LUNGS: Clear to auscultation bilaterally. ABDOMEN: S NT ND SKIN: No rash, no excessive bruising, petechiae, or purpura. NEUROLOGIC: alert, falls asleep easily. Dense left hemiparesis, facial asymmetry, speech slow and slurred but comprehensible. Objective Labs 03/04/25 14:12 03/04/25 14:12 Labs: Laboratory Results - last 24 hr 03/03/25 03/03/25 03/04/25 15:45 19:05 14:12 WBC 11.7 H RBC 5.68 H Hgb 16.5 H Hct 51.3 H MCV 90.3 MCH 29.1 MCHC 32.2 RDW 16.9 H Plt Count 182 Neut % (Auto) 71.0 Lymph % (Auto) 21.3 L [place] % (Auto) 7.2 Eos % (Auto) 0.2 L Baso % (Auto) 0.3 Neut # (Auto) 8300 H Lymph # (Auto) 2500 [place] # (Auto) 800 Eos # (Auto) 0 Baso # (Auto) 0 Sodium 136 L Potassium 4.9 Chloride 111 H Carbon Dioxide 13 L BUN 38 H Creatinine 1.50 H Estimated GFR 38 L BUN/Creatinine Ratio 25.3 H Glucose 109 H Hemoglobin A1c 6.0 Calcium 8.3 L Magnesium 1.7 Total Bilirubin 1.1 AST 122 H ALT 85 H Alkaline Phosphatase 97 Total Creatine Kinase Troponin I 0.561 H* 0.595 H* Total Protein 6.4 Albumin 2.9 L Globulin 3.5 Albumin/Globulin Ratio 0.8 L Triglycerides Cholesterol LDL Cholesterol, Calc HDL Cholesterol 03/04/25 03/04/25 14:21 14:30 WBC RBC Hgb Hct MCV MCH MCHC RDW Plt Count Neut % (Auto) Lymph % (Auto) [place] % (Auto) Eos % (Auto) Baso % (Auto) Neut # (Auto) Lymph # (Auto) [place] # (Auto) Eos # (Auto) Baso # (Auto) Sodium Potassium Chloride Carbon Dioxide BUN Creatinine Estimated GFR BUN/Creatinine Ratio Glucose Hemoglobin A1c Calcium Magnesium Total Bilirubin AST ALT Alkaline Phosphatase Total Creatine Kinase 79 Troponin I 0.468 H* Total Protein Albumin Globulin Albumin/Globulin Ratio Triglycerides 189 H Cholesterol 239 H LDL Cholesterol, Calc 175 H HDL Cholesterol 26 L [facility] Medical History (Updated 03/03/25 @ 20:40 by Rahat Hardwick DO) Scoliosis Dupuytrens contracture Surgical History (Updated 01/23/21 @ 03:08 by REMY Cui) History of thumb surgery History of tubal ligation Family History (Updated 01/23/21 @ 06:28 by REMY Cui) Father Stroke Mother Blood disease Social History household members: spouse Smoking Status: Never smoker Assessment & Plan Assessment & Plan narrative: 1. R ELIDIA subacute CVA - - continued decline over the course of the day. Near the end of the day she falls right back asleep, worsening NIH per nursing staff. This may be development of encephalopathy from SOHA/NAGMA as well. - will continue to discuss goals of care with spouse, he left briefly before MRI results reviewed and unable to contact - PT/OT/speech therapies if patient is more alert - asa/plavix and statin therapy to continue. PRESCHOOL PROGRAM DIRECTOR had recommended barium swallow but unclear if she will be alert enough this afternoon. 2. Myocardial injury. Troponin was 0.56 and repeat 0.59 now downtrending - TTE ordered - continue asa and plavix and statin as above - likely due to stress from CVA, as well as renal dysfunction 3. SOHA, present on admission with possible acute metabolic encephalopathy. - possibly pre-renal, though not improved / stable with IV fluids and developing anasarca / edema - follow up TTE as above possibly congestion leading to SOHA, also supported by rising bili and AST/ALT today. - trial 20 mg IV furosemide to see if improvement in lethargy. - metabolic acidosis on labs, worsening this afternoon - Check ABG. 4. Hypertension. Resume home lisinopril if able to tolerate PO, for now will trial 20 mg IV furosemide as noted above. 5. Hyperlipidemia. Resume statin, A1c 6.0%. DVT prophylaxis heparin subcu. CODE STATUS full code, will rediscuss today with Son once he returns to the hospital. Listed contact # is [phone]. I have utilized all available immediate resources to obtain, update, or review the patient's current medications. Dispo: patient admitted under inpatient status. Likely SNF discharge vs hospice vs expiration in the hospital depending on above course. Goals of care discussion currently pending return of son. Additional history obtained via discussions with the son and bedside RN today. These discussions contributed to the creation of the above assessment and plan. I have reviewed patient's presenting documentation, labs, and imaging personally. Time-Based Coding :: [TOTAL MINUTES] spent with patient and on the chart (including review of chart, obtaining history, exam, reviewing outside data, placing orders, documenting exam and treatment plan, and counseling patient) on [DATE].
[2025-03-04 17:11] LABS: Allen Test for ABG Passed? Positive; Base Excess ABG -6.7 mmol/L (-2-3); Blood Gas Collection Site Right Radial; Delivery System Cannula; HCO3 ABG 12 mmol/L (23-27); Oxygen Saturation ABG 96 % (95-100); PCO2 ABG 15.8 mmHg (35-45); PO2 ABG 71 mmHg (80-100); TCO2 ABG 11 mmol/L (23-27)
[2025-03-04] MEDS: FUROSEMIDE 40 MG/4 ML VIAL 20 MG IV (18:00)
[2025-03-04 19:28] LABS: MRSA (Nasal) PCR NOT DETECTED (Not Detect)
[2025-03-04 21:37] LABS: Urine Amphetamines Positive (Negative); Urine Barbiturates Negative (Negative); Urine Benzodiazepines Negative (Negative); Urine Cocaine Negative (Negative); Urine MDMA Negative (Negative); Urine Methadone Negative (Negative); Urine Opiates Negative (Negative); Urine Oxycodone Negative (Negative); Urine Phencyclidine Negative (Negative); Urine THC Positive (Negative); Urine Tricyclic Antidepressant Negative (Negative)
[2025-03-04] MEDS: DEXTROSE 50 % IN WATER 25 GM/50 ML SYRINGE IV ×2 (22:54→23:35)
--- NOTE | 2025-03-04 22:56 | DI.RAD.S_ITS ---
PROCEDURE: XR CHEST 1V INDICATIONS: aspiration? TECHNIQUE: One view of the chest was acquired. COMPARISON: [facility], CT, CT ANGIO CHEST PE PROTOCOL, 03/03/2025, 19:07. [facility], CR, XR CHEST 1V, 03/03/2025, 15:56. FINDINGS: Surgical changes and devices: None. Lungs and pleura: Small left pleural effusion with left lower lobe partial atelectasis. No right focal consolidation. No pneumothorax or right pleural effusion. Mediastinum: Mediastinal contours appear normal. Heart size is normal. Bones and chest wall: No suspicious bony lesions. Overlying soft tissues appear unremarkable. IMPRESSION: Small left pleural effusion with passive atelectasis of the left lower lobe. Dictated by: Karlo Palma M.D. on 03/05/2025 at 0:00 Approved by: Karlo Palma M.D. on 03/05/2025 at 0:03
[2025-03-04] MEDS: SODIUM CHLORIDE 0.9% 1,000 ML 1000 ML IV (23:00)
[2025-03-04] MEDS: NOREPINEPHRINE BITARTRATE/D5W 4 MG/250 ML PLAST..BAG 28.917 MG IV (23:10)
--- NOTE | 2025-03-04 23:17 | EKG_ITS ---
[address] [address] Test Date: 2025-03-04 Pat Name: Altagracia Zhu Department: Room: 226 Gender: Female Corporate Planner: HELEN : 1960 Requested By: Order Number: [id number] Reading MD: Rahat Ryan MD Measurements Intervals [place] Rate: 108 P: 83 PA: 156 QRS: 150 QRSD: 82 T: 17 QT: 372 QTc: 498 Interpretive Statements Sinus tachycardia Left atrial enlargement Right axis deviation Right ventricular hypertrophy Possible Inferior infarct , age undetermined Anteroseptal infarct , age undetermined NO SIGNIFICANT CHANGE FROM PRIOR TRACING Electronically Signed On 03-05-2025 6:52:45 PDT by Rahat Ryan MD
[2025-03-04 23:21] LABS: Base Excess ABG -11.7 mmol/L (-2-3); Blood Gas Collection Site Right Radial; HCO3 ABG 10 mmol/L (23-27); Oxygen Saturation ABG 99 % (95-100); PCO2 ABG 16.6 mmHg (35-45); PO2 ABG 142 mmHg (80-100); TCO2 ABG 9 mmol/L (23-27); pH ABG 7.38 (7.35-7.45)
--- NOTE | 2025-03-04 23:21 | PM.PN.1 ---
Subjective Subjective Interval history: Seen around 11 pm after she became progressively more hypoxemic and after rapid response was called by a charge nurse for hypotension, tachycardia and hypoxia. Exam Vital Signs (past 8 hours): - 03/04/25 15:30 03/04/25 15:35 03/04/25 16:00 Temperature Pulse Rate 104 H Respiratory Rate 20 Blood Pressure Pulse Oximetry 84 L 93 92 Oxygen Flow Rate 0 2 03/04/25 16:26 03/04/25 16:26 03/04/25 16:30 Temperature Pulse Rate 104 H 104 H Respiratory Rate 25 H 23 Blood Pressure 118/83 Pulse Oximetry 84 L 73 L Oxygen Flow Rate 03/04/25 17:00 03/04/25 17:30 03/04/25 17:38 Temperature Pulse Rate 103 H 102 H 102 H Respiratory Rate 20 18 19 Blood Pressure Pulse Oximetry 98 94 91 Oxygen Flow Rate 03/04/25 17:38 03/04/25 19:55 03/04/25 19:55 Temperature Pulse Rate 105 H Respiratory Rate 24 Blood Pressure 101/79 134/89 Pulse Oximetry 97 Oxygen Flow Rate 03/04/25 20:00 03/04/25 20:01 03/04/25 20:01 Temperature 96.8 F L Pulse Rate 105 H Respiratory Rate 23 Blood Pressure 124/87 Pulse Oximetry 91 Oxygen Flow Rate 2 03/04/25 21:00 03/04/25 21:00 03/04/25 21:15 Temperature Pulse Rate 106 H 105 H Respiratory Rate 24 23 Blood Pressure 111/70 Pulse Oximetry 96 90 L Oxygen Flow Rate 2 03/04/25 21:30 03/04/25 21:45 03/04/25 22:00 Temperature Pulse Rate 104 H 104 H 105 H Respiratory Rate 20 22 23 Blood Pressure Pulse Oximetry 93 87 L 89 L Oxygen Flow Rate 03/04/25 22:00 03/04/25 22:15 03/04/25 22:30 Temperature Pulse Rate 105 H 105 H Respiratory Rate 20 20 Blood Pressure 108/70 Pulse Oximetry 93 92 Oxygen Flow Rate 03/04/25 22:40 03/04/25 22:40 03/04/25 22:45 Temperature Pulse Rate 116 H 114 H Respiratory Rate 38 H 36 H Blood Pressure 108/72 Pulse Oximetry 69 L 78 L Oxygen Flow Rate 15 Oxygen Delivery Method Room Air Oxygen Flow Rate 15 Narrative Exam Narrative: General - in shock, lethargic, pale. at bedside. CVS - sinus tachycadia RS - tachypneic, non-rebreather, hypoxemic Neuro - lethargic, aphasic Objective ECG Impression: Sinus tachycardia Anteroseptal [place], undetermined age Imaging Chest x-ray: My impression: RLL infiltrate Borderline cardiomegally, w/o pulmonary edema Labs 03/04/25 14:12 03/04/25 14:12 Labs: Laboratory Results - last 24 hr 03/04/25 03/04/25 03/04/25 14:12 14:21 14:30 WBC 11.7 H RBC 5.68 H Hgb 16.5 H Hct 51.3 H MCV 90.3 MCH 29.1 MCHC 32.2 RDW 16.9 H Plt Count 182 Neut % (Auto) 71.0 Lymph % (Auto) 21.3 L [place] % (Auto) 7.2 Eos % (Auto) 0.2 L Baso % (Auto) 0.3 Neut # (Auto) 8300 H Lymph # (Auto) 2500 [place] # (Auto) 800 Eos # (Auto) 0 Baso # (Auto) 0 ABG Sample Site ABG pH ABG pCO2 ABG pO2 ABG HCO3 ABG Total CO2 ABG O2 Saturation ABG Base Excess Anurag Test O2 Delivery Device FiO2 % Sodium 136 L Potassium 4.9 Chloride 111 H Carbon Dioxide 13 L BUN 38 H Creatinine 1.50 H Estimated GFR 38 L BUN/Creatinine Ratio 25.3 H Glucose 109 H Hemoglobin A1c 6.0 Calcium 8.3 L Magnesium 1.7 Total Bilirubin 1.1 AST 122 H ALT 85 H Alkaline Phosphatase 97 Total Creatine Kinase 79 Troponin I 0.468 H* Total Protein 6.4 Albumin 2.9 L Globulin 3.5 Albumin/Globulin Ratio 0.8 L Triglycerides 189 H Cholesterol 239 H LDL Cholesterol, Calc 175 H HDL Cholesterol 26 L Nasal Screen MRSA (PCR) U Opiates 300ng/mL cut Ur Oxycodone Screen Urine Methadone Screen Ur Barbiturates Screen U Tricyclic Antidepress Ur Phencyclidine Scrn Ur Amphetamines Screen U Methamphetamines Scrn Ur MDMA Scrn (Ecstasy) U Benzodiazepines Scrn Urine Cocaine Screen U Marijuana (THC) Screen Urine pH Urine Specific [place] Ur Creatinine 03/04/25 03/04/25 03/04/25 16:30 17:05 21:08 WBC RBC Hgb Hct MCV MCH MCHC RDW Plt Count Neut % (Auto) Lymph % (Auto) [place] % (Auto) Eos % (Auto) Baso % (Auto) Neut # (Auto) Lymph # (Auto) [place] # (Auto) Eos # (Auto) Baso # (Auto) ABG Sample Site Right radial ABG pH 7.50 H ABG pCO2 15.8 L* ABG pO2 71 L ABG HCO3 12 L ABG Total CO2 11 L ABG O2 Saturation 96 ABG Base Excess -6.7 L Anurag Test Positive O2 Delivery Device Cannula FiO2 % 28 % Sodium Potassium Chloride Carbon Dioxide BUN Creatinine Estimated GFR BUN/Creatinine Ratio Glucose Hemoglobin A1c Calcium Magnesium Total Bilirubin AST ALT Alkaline Phosphatase Total Creatine Kinase Troponin I Total Protein Albumin Globulin Albumin/Globulin Ratio Triglycerides Cholesterol LDL Cholesterol, Calc HDL Cholesterol Nasal Screen MRSA (PCR) Not detected U Opiates 300ng/mL cut Negative Ur Oxycodone Screen Negative Urine Methadone Screen Negative Ur Barbiturates Screen Negative U Tricyclic Antidepress Negative Ur Phencyclidine Scrn Negative Ur Amphetamines Screen Positive H U Methamphetamines Scrn Positive H Ur MDMA Scrn (Ecstasy) Negative U Benzodiazepines Scrn Negative Urine Cocaine Screen Negative U Marijuana (THC) Screen Positive H Urine pH TNP Urine Specific [place] TNP Ur Creatinine TNP PFSH Medical History (Updated 03/04/25 @ 23:35 by Winston Workman MD) Scoliosis Dupuytrens contracture Surgical History (Updated 01/23/21 @ 03:08 by REMY Cui) History of thumb surgery History of tubal ligation Family History (Updated 01/23/21 @ 06:28 by REMY Cui) Father Stroke Mother Blood disease Social History household members: spouse Smoking Status: Never smoker Assessment & Plan Assessment and plan (1) Shock: Status: Acute Assessment & Plan narrative: Shock - likely combination of dehydration and possibly sepsis - less likely cardiogenic - NS bolus / IVFs - Levophed - empiric Zosyn for likely aspiration - poor prognosis discussed with in audio-visual encounter - workup - EKG, CXR, CBC, BMP, troponin, lactic acid Patient's consented to a real time, audio-video telemedicine visit with electronic stethoscope and RN assisting during the exam. Patient located at [place], [place]. Provider located in [place]. Time-Based Coding :: [TOTAL MINUTES] spent with patient and on the chart (including review of chart, obtaining history, exam, reviewing outside data, placing orders, documenting exam and treatment plan, and counseling patient) on [DATE].
[2025-03-04 23:29] LABS: Delivery System Non-Rebreather; Fractionated Inspired Oxygen 100 %
[2025-03-04 23:49] LABS: Add Manual Diff / Slide Review NO; Basophils Absolute Auto 0 /uL (0-100); Basophils Percent Auto 0.2 % (0-2); Eosinophils Absolute Auto 0 /uL (0-450); Eosinophils Percent Auto 0.1 % (2-4); Hematocrit 56.1 % (36-46); Hemoglobin 18.1 g/dL (12.0-16.0); Lymphocytes Absolute Auto 4300 /uL (1100-4500); Lymphocytes Percent Auto 27.5 % (25-40); Mean Corpuscular HGB Conc 32.3 % (30-36); Mean Corpuscular Hemoglobin 29.4 PG (26-34); Mean Corpuscular Volume 90.8 fL (80-100); Monocytes Absolute Auto 1200 /uL (0-900); Monocytes Percent Auto 7.5 % (3-14); Neutrophils Absolute Auto 10200 /uL (1500-7000); Neutrophils Percent Auto 64.7 % (50-75); Platelet Count 183 X10^3/uL (150-400); Red Blood Cell Count 6.17 X10^6/uL (4.0-5.2); Red Cell Distribution Width 17.4 % (11.6-14.8); White Blood Cell Count 15.7 X10^3/uL (4.5-11.0)
[2025-03-04 23:56] LABS: BUN Creatinine Ratio 23.1 (6-22); Blood Urea Nitrogen 40 mg/dL (7-17); Calcium 8.9 mg/dL (8.4-10.2); Chloride 110 mmol/L (98-107); Estimated Glomerular Filt Rate 32 mL/min (>60); Glucose 121 mg/dL (70-99); Potassium 4.9 mmol/L (3.4-5.1); Sodium 138 mmol/L (137-145)
[2025-03-05] VITALS (121 sets, daily range): BP systolic 89–143; BP diastolic 44–106; PULSE 74–111; RESP 14–26; TEMP 35.6–36.3; O2SAT 70–100
[2025-03-05] MEDS: DEXTROSE 50 % IN WATER 25 GM/50 ML SYRINGE IV
[2025-03-05 00:03] LABS: HEMOLYSIS 70 (0-50)
[2025-03-05 00:04] LABS: Carbon Dioxide 9 mmol/L (22-32)
--- NOTE | 2025-03-05 00:20 | DI.CT.S_ITS ---
PROCEDURE: CT HEAD/BRAIN WO CON INDICATIONS: mental status changes TECHNIQUE: Noncontrast 4.5 mm thick angled axial sections acquired from the foramen magnum to the vertex, with coronal and sagittal reformats. For radiation dose reduction, the following was used: automated exposure control, adjustment of mA and/or kV according to patient size. COMPARISON: [facility], MR, MR HEAD/BRAIN WO CON, 03/04/2025, 14:58. [facility], CT, CT HEAD/BRAIN WO CON, 03/03/2025, 15:57. FINDINGS: Image quality: Diagnostic. CSF spaces: Basal cisterns are patent. No extra-axial fluid collections. The ventricles are symmetric in size and shape. Brain: Hypoattenuation in the parafalcine right cerebral hemisphere corresponding to the subacute anterior cerebral artery infarct. Chronic lacunar infarct in the right martinez radiata. No intracranial bleeds or mass effect. There is cerebral volume loss, with resultant ventricular and sulcal prominence. There are periventricular and deep white matter chronic small vessel ischemic changes. There is intracranial internal carotid artery atherosclerosis. Skull and face: Calvarium and visualized facial bones appear intact, without suspicious lesions. Sinuses: Visualized sinuses and mastoids are clear. IMPRESSION: Re-identified subacute right cerebral anterior cerebral artery infarct without significant mass effect, midline shift, or acute intracranial hemorrhage. Dictated by: Karlo Palma M.D. on 03/05/2025 at 0:38 Approved by: Karlo Palma M.D. on 03/05/2025 at 0:42
[2025-03-05] MEDS: PIPERACILLIN/TAZO 3.375 GM in SODIUM CHLORIDE 0.9% 100 ML IV ×3 (00:43→15:38)
[2025-03-05] MEDS: SODIUM CHLORIDE 0.9% 1,000 ML 100 ML IV ×2 (00:52→04:49)
[2025-03-05 01:30] LABS: Reflexed Lactate in 2 Hours Y
[2025-03-05 02:12] LABS: Lactate 2HR (Lactic Acid Rflx) 3.4 mmol/L (0.7-2.1)
[2025-03-05 05:15] LABS: Lactate (Lactic Acid) 3.1 mmol/L (0.7-2.1)
[2025-03-05 05:18] LABS: Add Manual Diff / Slide Review NO; Basophils Absolute Auto 0 /uL (0-100); Basophils Percent Auto 0.1 % (0-2); Eosinophils Absolute Auto 0 /uL (0-450); Eosinophils Percent Auto 0.1 % (2-4); Hematocrit 48.6 % (36-46); Lymphocytes Absolute Auto 2000 /uL (1100-4500); Lymphocytes Percent Auto 14.4 % (25-40); Mean Corpuscular Hemoglobin 29.5 PG (26-34); Mean Corpuscular Volume 89.3 fL (80-100); Monocytes Absolute Auto 1100 /uL (0-900); Neutrophils Absolute Auto 10900 /uL (1500-7000); Neutrophils Percent Auto 77.4 % (50-75); Platelet Count 165 X10^3/uL (150-400); Red Blood Cell Count 5.44 X10^6/uL (4.0-5.2); Red Cell Distribution Width 17.5 % (11.6-14.8); White Blood Cell Count 14.1 X10^3/uL (4.5-11.0)
[2025-03-05 05:19] LABS: Alanine Aminotransferase 74 IU/L (<35); Albumin 2.4 g/dL (3.5-5.0); Albumin Globulin Ratio 0.7 (1.0-2.8); Alkaline Phosphatase 97 U/L (38-126); Aspartate Aminotransferase 65 IU/L (14-36); BUN Creatinine Ratio 23.9 (6-22); Bilirubin Total 0.9 mg/dL (0.2-1.3); Blood Urea Nitrogen 38 mg/dL (7-17); Calcium 8.1 mg/dL (8.4-10.2); Carbon Dioxide 12 mmol/L (22-32); Chloride 114 mmol/L (98-107); Estimated Glomerular Filt Rate 36 mL/min (>60); Globulin 3.3 g/dL (1.7-4.1); Glucose 167 mg/dL (70-99); HEMOLYSIS < 15 (0-50); Magnesium 1.7 mg/dL (1.6-2.3); Potassium 3.9 mmol/L (3.4-5.1); Sodium 137 mmol/L (137-145); Total Protein 5.7 g/dL (6.3-8.2)
[2025-03-05 05:20] LABS: Base Excess ABG -9.4 mmol/L (-2-3); Blood Gas Collection Site Right Radial; Delivery System High Flow Nas Cannul; HCO3 ABG 12 mmol/L (23-27); Oxygen Saturation ABG 99 % (95-100); PO2 ABG 118 mmHg (80-100); TCO2 ABG 11 mmol/L (23-27); pH ABG 7.41 (7.35-7.45)
[2025-03-05 06:20] LABS: Reflexed Lactate in 2 Hours Y
--- NOTE | 2025-03-05 07:24 | PC.NURSE ---
Residential Mortgage Underwriter Notes-At 1900 patient's admit status was AC w/ Tele. Dr. Gordon had been in room seeing the patient and talking to about prognosis, remained Full Code. I asked Dr. Gordon if patient was needing pressors, he said no Upon initial assessment, patient was minimally responsive to painful stimuli, GCS 8. On 2L, SpO2 labile and hard to obtain r/t cold cyanotic fingers and toes, sometimes able to get 100% on earlobes. Castro placed at 2100, urine sent for tox. At 2245 Rapid Response called d/t desatting to 60% RR 40s, hypotension, hypoglycemia. RT at bedside, ABG, EKG, CXR done, labs drawn, 1st CBG checked was 64, 1 amp D50 given. CO Erma Dwyer RN communicating with Dr. Workman via [employer] cell phone. Orders obtained for NS bolus, Levophed infusion which was infusing briefly-see Emar and vital trends, BP became stable. Recheck CBG 51-another amp D50 given, rechecked CBG 25, 1 more amp D50 given, then BG up to 169. Patient taken to CT by 2 RNs and PCT. Zosyn also started-see Emar for all medications. RT placed patient on HHF at 0130, for SpO2 80% currently 40%/50L. in room at all times, tearful, sometimes attempting to heal her with vibrations
--- NOTE | 2025-03-05 08:16 | CM.DANOTE ---
Late Entry: Visit 03/04/25 Initial DCP Assessment Visit Note Reviewed EMR and team rounds for status updates. Met with pt and spouse at bedside, introduced self to pt's spouse, pt was non-responsive at the time of this visit. Pt and spouse [place] on [place] in [place]. Pt is mostly bedbound on the boat, is total care, and only leaves/returns to the boat via the assistance of EMS. Pt's prognosis is guarded at this time, and she has continued to decline overall since yesterday early afternoon. Disposition uncertain, transfer is possible given pt's critical status. Payor: Medicare/Medicaid PCP: Not identified Pt is a64 year-old F with a hx of hypertension, and past CVA that left her with residual deficits of L-sided weakness in both her upper and lower extremities. She fell the day of admission prior to coming to the ED while her spouse was trying to transfer her to the bathroom, and fell a second time not long after, prompting her spouse to call EMS. He shared that she had slurred speech at the time that lasted about [address] was negative for abnormalities, however the brain MR later confirmed that she had had a new stroke. Pt's spouse is not coping well with her declining status, and has stated several times that he felt that there have been critical delays in her care, and that he was watch her continue to decompensate since her arrival. Spouse remains hopeful that pt will improve and d/c home. This MACHINIST CLASS B provided emotional/coping support and encouragement for spouse in understanding the information that we have, and the plan of care as it evolves. Discharge Planning/Care Management CM Discharge Assessment Start: 03/03/25 20:50 Freq: Status: Active Protocol: Document 03/04/25 13:55 DPL (Rec: 03/04/25 13:58 DPL [id number]) Discharge Planning Assessment Assigned Rubber Gasket Inspector Trimmer AKIKO Erwin Advance Directives? No History Provided By Patient,Medical Record Expected Length of Stay 2 Has Patient been admitted in last 30 No days? Prior Living Arrangements Other Household Members spouse Type of transporation used prior to Relies on Others admit Independent with ADL's No: Pt is total care/bedbound Is patient alert and oriented? Yes Needs Assistance With Bathing,Meal Prep,Toileting, Managing Medications,Home Chores / Shopping Caregiver for Another No Comment No home d/c needs are identified at this time. Comment Lives on a boat, confirmed CVA , needs assist Referrals Initiated Other Whiteboard Updated in Patient Room with Yes name and ext. # of Rubber Gasket Inspector Trimmer Review Status In Process Please Provide Date Initial DC 03/04/25 Assessment Was Performed
[2025-03-05 08:48] LABS: Lactate 2HR (Lactic Acid Rflx) 2.3 mmol/L (0.7-2.1)
--- NOTE | 2025-03-05 09:19 | PC.NURSE ---
Rec'd report from NOC shift. Pt resting supine. On HHFNC 40% 40L. Sat 83-85% with ear probe and adequate pleth. 100% O2 flush given with improvement. RT in room and increased to 45% 40L. Currently 94%. BP 113/81. Norepi continues to remain off. RR 25-30. Arousable to moderate touch. pupils about 2mm and sluggish. NSR 97 without ectopy. Castro in place with minimal dark yellow output. IVF at 100ml/hr. Unable to obtain accurate glucose from fingers/toes which are cyanotic and cold to touch. wrapped in warm blankets. doppler pedal pulses obtained and marked. COMMUNICATION ANALYST able to obtain glucose from L elbow area. Moving L leg minimally and able to spontaneously wiggle R toes. Mottling up to bilateral ankles. Upper extremity mottling to mid forearm. Dr Gordon at bedside. No new orders. at bedside and warranty administrator rounded.
[2025-03-05] MEDS: SODIUM CHLORIDE 0.9% FLUSH 10 ML IV ×2 (09:34→22:49)
[2025-03-05] MEDS: HEPARIN 5,000 UNIT/ML VIAL 5000 UNIT SUBCUT (09:43)
--- NOTE | 2025-03-05 10:08 | OT.IPNOTE ---
Per hospitalist okay to discharge therapy orders as pt no longer medically appropriate for therapies at this time.
[2025-03-05 10:42] LABS: Lactate (Lactic Acid) 2.5 mmol/L (0.7-2.1)
[2025-03-05] MEDS: MAGNESIUM SULFATE 2 GM/50 ML PIGGYBACK IV (11:12)
--- NOTE | 2025-03-05 11:57 | PC.NURSE ---
noted on assessment to have improvement in upper extremity color and temperature. pink warm and dry, some mottling is still apparent to mid forearms however appears to be improving from initial assessment.
[2025-03-05 12:10] LABS: Reflexed Lactate in 2 Hours Y
--- NOTE | 2025-03-05 12:24 | DI.RAD.S_ITS ---
PROCEDURE: XR CHEST 1V INDICATIONS: worsening hypoxia TECHNIQUE: One view of the chest was acquired. COMPARISON: [facility], CR, XR CHEST 1V, 03/03/2025, 15:56. [facility], CR, XR CHEST 1V, 03/04/2025, 22:54. FINDINGS: Surgical changes and devices: None. Lungs and pleura: There is a small left-sided pleural effusion, which is similar to the prior. On the supine study, no large pneumothorax is seen. Mediastinum: Mediastinal contours appear normal. Heart size is normal. Atherosclerotic calcification of the aortic arch is noted. Bones and chest wall: No suspicious bony lesions. Overlying soft tissues appear unremarkable. IMPRESSION: Stable small left-sided pleural effusion. Dictated by: Brian Saldaña M.D. on 03/05/2025 at 12:06 Approved by: Brian Saldaña M.D. on 03/05/2025 at 12:06
--- NOTE | 2025-03-05 12:51 | PC.NURSE ---
At 1215 SPO2 noted to drop to 70%. RN entered room. Assessed pt. 100% O2 flush administered on HFNC machine. RT called. Lungs clear anteriorly. R Lower lung with coarse crackles. Noted to have blue viscous substance on L chest that was not there on previous assessment. Wiped off pt's chest immediately. Fernando, , in room with odd affect/demeanor. Tangential speech. Angry with this RN for entering and states i just woke up, im calling the second worker and left room. Dr Gordon at bedside. HFNC increased by RT to 90% 50L. By 1245, pt's SPO2 96%. Stat CXR obtained. Call received from Corina, pt's daugther who lives in [place] and is currently in [place] [phone]. Per daughter, she does not want any information given to Fernando regarding her calling/input with the situation. Reports she does not believe Pt and Fernando are legally . [employer] WEB DEVELOPER made aware and trying to determine legal next of kin.
--- NOTE | 2025-03-05 13:25 | SLP.IPNOTE ---
MBS cancelled. Spoke with nursing who noted pt ot able to tolerate procedure.
--- NOTE | 2025-03-05 13:30 | CM.DPC ---
DCP Cont: Per MD, pt's prognosis is guarded and she remains on HHFNC O2 at this time and sats have been dropping and pt at risk for intubation. attempting further Goals of Care with Sig Other Fernando but he is currently with some erratic behavior and currently Fernando wanting full tx/intubation if needed. Per RN, Dtr Corina called [phone] and explained she lives in [place] and has estranged relationship with pt due to Sig Other Fernando and does not believe that they are legally but have been together at least 15 years. Dtr talked to MD as well and currently leaning towards more comfort focused tx. OBDULIA met bedside with pt, obtunded, and Sig Other Fernando and he states they were legally in [facility] on [address] 15 years ago. Sig Other confirmed his name is spelled Fernando Loredo. Fernando had difficulty recalling information and historical data and stated I don't know whats wrong with me, I can't seem to remember anything right now after it took him a few minutes to recall the name of [facility] where they were . He states he does not think they moved or lived anywhere besides [address] since they were . OBDULIA called [facility] office and they looked up both pt and Fernando's information and no record of marriage license/certificate. OBDULIA went online to the [facility] and attempted to look up pt and Fernando for [facility], and [facility] and no record of marriage. OBDULIA also attempted using pt's other known last name of Delroy in those [facility] and no records of marriage. OBDULIA met bedside with Fernando again and he states he has the marriage license in their posession and OBDULIA requested he go get it and bring it to the hospital in case pt needs legal person to sign for medical care and Fernando states he will leave now and go get the copy now on their boat that is moored on [address] and bring into the hospital. OBDULIA updated MD and RN and furniture reproducer that if Sig Other cannot provide the marriage license then Dtrs would be the legal decision makers for medical care. AKIKO Leiva
--- NOTE | 2025-03-05 13:48 | PT.IPTN ---
Current Diagnoses Transient cerebral ischemic attack, unspecified (03/05/25) Shock, unspecified (03/05/25) Physical Therapy Treatment Note M2 PT-IP Current Condition Start: 03/04/25 12:35 Freq: NEEDED Status: Active Protocol: Document 03/04/25 11:15 AB (Rec: 03/04/25 12:53 AB [id number]) Physical Therapy Current Condition Current Condition Evaluation Date 03/04/25 Treatment Diagnosis CVA; generalized weakness Onset Date 03/03/25 M3 PT-IP Subjective Start: 03/04/25 12:35 Freq: NEEDED Status: Active Protocol: Document 03/05/25 13:47 AB (Rec: 03/05/25 13:48 AB [id number]) Subjective Physical Therapy Visit Type Type Administrative Note Notes Per hospitalist, pt is not medically appropriate for PT at this time and to d/c PT. PT Summary Assessment and Plan Frequency of Treatment Frequency Of Treatment Discharge
[2025-03-05 13:53] LABS: Lactate 2HR (Lactic Acid Rflx) 1.8 mmol/L (0.7-2.1)
[2025-03-05 15:39] LABS: Appearance Urine UA SL CLOUDY; Bilirubin Urine UA 1+ (NEGATIVE); Color Urine UA YELLOW; Glucose Urine UA NEGATIVE (Negative); Ketones Urine UA NEGATIVE (NEGATIVE); Leukocyte Esterase Urine UA 1+ (NEGATIVE); Nitrite Urine UA NEGATIVE (Negative); Occult Blood Urine UA TRACE-INTACT (Negative); Protein Urine UA 3+ (Negative); Specific Gravity Urine UA >=1.030 (1.000-1.035)
[2025-03-05 15:48] LABS: pH Urine UA 5.5 (4.5-8.0)
--- NOTE | 2025-03-05 15:50 | PC.NURSE ---
1530: RT in room. HFNC decreased from 90% 50L to 60% 50L and appears to be tolerating well at 95%.
[2025-03-05 15:54] LABS: Bacteria Urine Many (>30); Culture Indicated Urine Specimen Cultured; RBC Urine None Seen (0-5/HPF); Renal Epithelial Cells Urine 1-5/HPF (0-1/HPF); Squamous Epithelial Cell Urine 0-1 /HPF (0-5/HPF); Urine Volume 10mL (spun); WBC Urine 10-30/HPF (0-5/HPF)
[2025-03-05 15:57] LABS: Ictotest Urine Negative (Negative)
--- NOTE | 2025-03-05 16:05 | PM.PN.1 ---
Subjective Subjective Interval history: Episode of saturation again this afternoon. She continues to decline today. Was on heated high flow 50L at approx 90% FiO2, now slightly improved to 60% this afternoon. Minimal urine output. CXR still stable with minimal L sided pleural effusion. She moans, largely unresponsive. TTE showed EF of appox 20%, possibly due to severe R ventricular volume overload. Patient's spouse comes in and out of the hospital. Gets fairly agitated with continued reports of bad news and her poor prognosis. Patient's daughter called today and stated the patient was not legally . Spouse states he does have a marriage certificate, but cannot recall when they were . Patient's friends visited today expressed they were not sure if they were legally . Spouse went home to look for marriage certificate. Exam Vital Signs (past 8 hours): - 03/05/25 08:15 03/05/25 08:15 03/05/25 08:30 Temperature Pulse Rate 94 H 94 H Respiratory Rate 16 17 Blood Pressure 106/77 Pulse Oximetry 95 95 Oxygen Delivery Method Oxygen Flow Rate 03/05/25 08:30 03/05/25 08:45 03/05/25 08:45 Temperature Pulse Rate 96 H Respiratory Rate 19 Blood Pressure 109/83 109/72 Pulse Oximetry 95 Oxygen Delivery Method Oxygen Flow Rate 03/05/25 09:00 03/05/25 09:00 03/05/25 09:15 Temperature Pulse Rate 96 H Respiratory Rate 17 Blood Pressure 108/82 113/81 Pulse Oximetry 96 Oxygen Delivery Method Oxygen Flow Rate 03/05/25 09:15 03/05/25 09:30 03/05/25 09:30 Temperature Pulse Rate 97 H 96 H Respiratory Rate 21 16 Blood Pressure 102/75 Pulse Oximetry 94 95 Oxygen Delivery Method Oxygen Flow Rate 03/05/25 09:45 03/05/25 09:45 03/05/25 10:00 Temperature Pulse Rate 96 H 95 H Respiratory Rate 16 16 Blood Pressure 98/72 Pulse Oximetry 95 96 Oxygen Delivery Method Oxygen Flow Rate 03/05/25 10:00 03/05/25 10:06 03/05/25 10:15 Temperature Pulse Rate 95 H Respiratory Rate Blood Pressure 100/72 100/72 106/72 Pulse Oximetry Oxygen Delivery Method Oxygen Flow Rate 03/05/25 10:15 03/05/25 10:30 03/05/25 10:30 Temperature Pulse Rate 96 H 96 H Respiratory Rate 16 16 Blood Pressure 108/73 Pulse Oximetry 95 95 Oxygen Delivery Method Oxygen Flow Rate 03/05/25 10:45 03/05/25 10:45 03/05/25 11:00 Temperature Pulse Rate 97 H 97 H Respiratory Rate 17 17 Blood Pressure 104/72 Pulse Oximetry 95 95 Oxygen Delivery Method Oxygen Flow Rate 03/05/25 11:00 03/05/25 11:03 03/05/25 11:15 Temperature Pulse Rate 96 H Respiratory Rate 17 Blood Pressure 107/74 Pulse Oximetry 95 Oxygen Delivery Method Heated High Flow Oxygen Flow Rate 03/05/25 11:15 03/05/25 11:30 03/05/25 11:31 Temperature Pulse Rate 97 H 97 H Respiratory Rate 19 19 Blood Pressure 94/72 Pulse Oximetry 95 95 Oxygen Delivery Method Oxygen Flow Rate 03/05/25 11:31 03/05/25 11:45 03/05/25 11:45 Temperature Pulse Rate 96 H Respiratory Rate 18 Blood Pressure 100/71 102/67 Pulse Oximetry 96 Oxygen Delivery Method Oxygen Flow Rate 03/05/25 11:51 03/05/25 12:00 03/05/25 12:00 Temperature 97.3 F L Pulse Rate 96 H 96 H Respiratory Rate 22 21 Blood Pressure 103/72 Pulse Oximetry 96 94 Oxygen Delivery Method Oxygen Flow Rate 03/05/25 12:15 03/05/25 12:15 03/05/25 12:30 Temperature Pulse Rate 93 H 92 H Respiratory Rate 16 16 Blood Pressure 100/71 Pulse Oximetry 70 L 94 Oxygen Delivery Method Oxygen Flow Rate 40 50 03/05/25 12:33 03/05/25 12:33 03/05/25 12:45 Temperature Pulse Rate 92 H 90 Respiratory Rate 22 16 Blood Pressure 97/67 Pulse Oximetry 93 98 Oxygen Delivery Method Oxygen Flow Rate 03/05/25 12:48 03/05/25 12:48 03/05/25 13:00 Temperature Pulse Rate 91 H Respiratory Rate 18 20 Blood Pressure 89/63 L Pulse Oximetry 97 96 Oxygen Delivery Method Oxygen Flow Rate 03/05/25 13:00 03/05/25 13:00 03/05/25 13:15 Temperature Pulse Rate 91 H 90 Respiratory Rate 16 15 Blood Pressure 103/69 Pulse Oximetry 96 89 L Oxygen Delivery Method Oxygen Flow Rate 03/05/25 13:15 03/05/25 13:30 03/05/25 13:31 Temperature Pulse Rate 92 H Respiratory Rate 16 Blood Pressure 90/62 100/71 Pulse Oximetry 98 Oxygen Delivery Method Oxygen Flow Rate 03/05/25 13:31 03/05/25 13:45 03/05/25 13:45 Temperature Pulse Rate 92 H 91 H Respiratory Rate 16 16 Blood Pressure 93/72 Pulse Oximetry 98 96 Oxygen Delivery Method Oxygen Flow Rate 03/05/25 14:00 03/05/25 14:01 03/05/25 14:01 Temperature Pulse Rate 91 H 91 H Respiratory Rate 16 17 Blood Pressure 108/73 Pulse Oximetry 96 97 Oxygen Delivery Method Oxygen Flow Rate 03/05/25 14:15 03/05/25 14:15 03/05/25 14:30 Temperature Pulse Rate 95 H Respiratory Rate 20 Blood Pressure 109/79 115/80 Pulse Oximetry 96 Oxygen Delivery Method Oxygen Flow Rate 03/05/25 14:30 03/05/25 14:45 03/05/25 14:45 Temperature Pulse Rate 95 H 96 H Respiratory Rate 21 19 Blood Pressure 118/83 Pulse Oximetry 94 95 Oxygen Delivery Method Oxygen Flow Rate 03/05/25 15:00 03/05/25 15:00 03/05/25 15:15 Temperature Pulse Rate 93 H 92 H Respiratory Rate 16 17 Blood Pressure 113/80 Pulse Oximetry 95 96 Oxygen Delivery Method Oxygen Flow Rate 03/05/25 15:15 03/05/25 15:30 03/05/25 15:30 Temperature Pulse Rate 94 H Respiratory Rate 19 Blood Pressure 111/78 134/77 Pulse Oximetry 95 Oxygen Delivery Method Oxygen Flow Rate 50 03/05/25 15:45 03/05/25 15:45 03/05/25 15:47 Temperature Pulse Rate 97 H 96 H Respiratory Rate 21 20 Blood Pressure 128/80 134/77 Pulse Oximetry 95 95 Oxygen Delivery Method Oxygen Flow Rate Fraction of Inspired Oxygen 28 SaO2/FiO2 Ratio 328 Oxygen Delivery Method Heated High Flow Oxygen Flow Rate 50 Narrative Exam Narrative: Physical Exam: GENERAL: The patient is lethargic, difficult to arouse, does make some sounds no audible words. HEART: Regular rate and rhythm without murmurs. 1-2+ LE edema, also with upper extremity edema LUNGS: diminished breath sounds b/l, shallow breaths, no crackles or wheezing. ABDOMEN: S NT ND SKIN: No rash, no excessive bruising, petechiae, or purpura. NEUROLOGIC:as above Objective Imaging Echo: Radiologist's impression: Profound RV failure with severe pulmonary hypertension and wide-open tricuspid regurgitation. LV is small and underfilled. LV systolic function appears severely reduced. However, LV failure may be secondary to RV enlargement. Other findings as below. When compared to echo report dated 01/23/2021, RV failure has progressed. LV dysfunction is new Labs 03/05/25 04:30 03/05/25 04:30 Labs: Laboratory Results - last 24 hr 03/04/25 03/04/25 03/04/25 16:30 17:05 21:08 WBC RBC Hgb Hct MCV MCH MCHC RDW Plt Count Neut % (Auto) Lymph % (Auto) [place] % (Auto) Eos % (Auto) Baso % (Auto) Neut # (Auto) Lymph # (Auto) [place] # (Auto) Eos # (Auto) Baso # (Auto) ABG Sample Site Right radial ABG pH 7.50 H ABG pCO2 15.8 L* ABG pO2 71 L ABG HCO3 12 L ABG Total CO2 11 L ABG O2 Saturation 96 ABG Base Excess -6.7 L Anurag Test Positive O2 Delivery Device Cannula FiO2 % 28 % Sodium Potassium Chloride Carbon Dioxide BUN Creatinine Estimated GFR BUN/Creatinine Ratio Glucose Lactate Calcium Magnesium Total Bilirubin AST ALT Alkaline Phosphatase Total Protein Albumin Globulin Albumin/Globulin Ratio Urine Color Urine Appearance Ur Specific [place] Urine Protein Urine Glucose (UA) Urine Ketones Urine Occult Blood Urine Nitrate Urine Bilirubin Ur Bilirubin Confirm Urine Urobilinogen Ur Leukocyte Esterase Urine RBC Urine WBC Ur Squamous Epith Cells Ur Renal Epithelial Cell Urine Bacteria Ur Culture Indicated? Vol Urine Centrifuged Nasal Screen MRSA (PCR) Not detected U Opiates 300ng/mL cut Negative Ur Oxycodone Screen Negative Urine Methadone Screen Negative Ur Barbiturates Screen Negative U Tricyclic Antidepress Negative Ur Phencyclidine Scrn Negative Ur Amphetamines Screen Positive H U Methamphetamines Scrn Positive H Ur MDMA Scrn (Ecstasy) Negative U Benzodiazepines Scrn Negative Urine Cocaine Screen Negative U Marijuana (THC) Screen Positive H Urine pH TNP Urine Specific [place] TNP Ur Creatinine TNP 03/04/25 03/04/25 03/04/25 22:55 23:12 23:51 WBC 15.7 H RBC 6.17 H Hgb 18.1 H Hct 56.1 H MCV 90.8 MCH 29.4 MCHC 32.3 RDW 17.4 H Plt Count 183 Neut % (Auto) 64.7 Lymph % (Auto) 27.5 Coles % (Auto) 7.5 Eos % (Auto) 0.1 L Baso % (Auto) 0.2 Neut # (Auto) 24381 H Lymph # (Auto) 4300 [place]es # (Auto) 1200 H Eos # (Auto) 0 Baso # (Auto) 0 ABG Sample Site Right radial ABG pH 7.38 ABG pCO2 16.6 L* ABG pO2 142 H ABG HCO3 10 L ABG Total CO2 9 L ABG O2 Saturation 99 ABG Base Excess -11.7 L Anurag Test N/a O2 Delivery Device Non-rebreather FiO2 % 100 Sodium 138 Potassium 4.9 Chloride 110 H Carbon Dioxide 9 L* BUN 40 H Creatinine 1.73 H Estimated GFR 32 L BUN/Creatinine Ratio 23.1 H Glucose 121 H Lactate 3.0 H Calcium 8.9 Magnesium Total Bilirubin AST ALT Alkaline Phosphatase Total Protein Albumin Globulin Albumin/Globulin Ratio Urine Color Urine Appearance Ur Specific [place] Urine Protein Urine Glucose (UA) Urine Ketones Urine Occult Blood Urine Nitrate Urine Bilirubin Ur Bilirubin Confirm Urine Urobilinogen Ur Leukocyte Esterase Urine RBC Urine WBC Ur Squamous Epith Cells Ur Renal Epithelial Cell Urine Bacteria Ur Culture Indicated? Vol Urine Centrifuged Nasal Screen MRSA (PCR) U Opiates 300ng/mL cut Ur Oxycodone Screen Urine Methadone Screen Ur Barbiturates Screen U Tricyclic Antidepress Ur Phencyclidine Scrn Ur Amphetamines Screen U Methamphetamines Scrn Ur MDMA Scrn (Ecstasy) U Benzodiazepines Scrn Urine Cocaine Screen U Marijuana (THC) Screen Urine pH Urine Specific [place] Ur Creatinine 03/05/25 03/05/25 03/05/25 01:45 04:30 04:42 WBC 14.1 H RBC 5.44 H Hgb 16.0 Hct 48.6 H MCV 89.3 MCH 29.5 MCHC 33.0 RDW 17.5 H Plt Count 165 Neut % (Auto) 77.4 H Lymph % (Auto) 14.4 L [place] % (Auto) 8.0 Eos % (Auto) 0.1 L Baso % (Auto) 0.1 Neut # (Auto) 33905 H Lymph # (Auto) 2000 [place] # (Auto) 1100 H Eos # (Auto) 0 Baso # (Auto) 0 ABG Sample Site Right radial ABG pH 7.41 ABG pCO2 19.0 L* ABG pO2 118 H ABG HCO3 12 L ABG Total CO2 11 L ABG O2 Saturation 99 ABG Base Excess -9.4 L Anurag Test N/a O2 Delivery Device High flow binh cannul FiO2 % 50.0 % Sodium 137 Potassium 3.9 Chloride 114 H Carbon Dioxide 12 L BUN 38 H Creatinine 1.59 H Estimated GFR 36 L BUN/Creatinine Ratio 23.9 H Glucose 167 H Lactate 3.4 H 3.1 H Calcium 8.1 L Magnesium 1.7 Total Bilirubin 0.9 AST 65 H ALT 74 H Alkaline Phosphatase 97 Total Protein 5.7 L Albumin 2.4 L Globulin 3.3 Albumin/Globulin Ratio 0.7 L Urine Color Urine Appearance Ur Specific [place] Urine Protein Urine Glucose (UA) Urine Ketones Urine Occult Blood Urine Nitrate Urine Bilirubin Ur Bilirubin Confirm Urine Urobilinogen Ur Leukocyte Esterase Urine RBC Urine WBC Ur Squamous Epith Cells Ur Renal Epithelial Cell Urine Bacteria Ur Culture Indicated? Vol Urine Centrifuged Nasal Screen MRSA (PCR) U Opiates 300ng/mL cut Ur Oxycodone Screen Urine Methadone Screen Ur Barbiturates Screen U Tricyclic Antidepress Ur Phencyclidine Scrn Ur Amphetamines Screen U Methamphetamines Scrn Ur MDMA Scrn (Ecstasy) U Benzodiazepines Scrn Urine Cocaine Screen U Marijuana (THC) Screen Urine pH Urine Specific [place] Ur Creatinine 03/05/25 03/05/25 03/05/25 08:28 10:26 13:30 WBC RBC Hgb Hct MCV MCH MCHC RDW Plt Count Neut % (Auto) Lymph % (Auto) [place] % (Auto) Eos % (Auto) Baso % (Auto) Neut # (Auto) Lymph # (Auto) [place] # (Auto) Eos # (Auto) Baso # (Auto) ABG Sample Site ABG pH ABG pCO2 ABG pO2 ABG HCO3 ABG Total CO2 ABG O2 Saturation ABG Base Excess Anurag Test O2 Delivery Device FiO2 % Sodium Potassium Chloride Carbon Dioxide BUN Creatinine Estimated GFR BUN/Creatinine Ratio Glucose Lactate 2.3 H 2.5 H 1.8 Calcium Magnesium Total Bilirubin AST ALT Alkaline Phosphatase Total Protein Albumin Globulin Albumin/Globulin Ratio Urine Color Urine Appearance Ur Specific [place] Urine Protein Urine Glucose (UA) Urine Ketones Urine Occult Blood Urine Nitrate Urine Bilirubin Ur Bilirubin Confirm Urine Urobilinogen Ur Leukocyte Esterase Urine RBC Urine WBC Ur Squamous Epith Cells Ur Renal Epithelial Cell Urine Bacteria Ur Culture Indicated? Vol Urine Centrifuged Nasal Screen MRSA (PCR) U Opiates 300ng/mL cut Ur Oxycodone Screen Urine Methadone Screen Ur Barbiturates Screen U Tricyclic Antidepress Ur Phencyclidine Scrn Ur Amphetamines Screen U Methamphetamines Scrn Ur MDMA Scrn (Ecstasy) U Benzodiazepines Scrn Urine Cocaine Screen U Marijuana (THC) Screen Urine pH Urine Specific [place] Ur Creatinine 03/05/25 15:13 WBC RBC Hgb Hct MCV MCH MCHC RDW Plt Count Neut % (Auto) Lymph % (Auto) [place] % (Auto) Eos % (Auto) Baso % (Auto) Neut # (Auto) Lymph # (Auto) [place] # (Auto) Eos # (Auto) Baso # (Auto) ABG Sample Site ABG pH ABG pCO2 ABG pO2 ABG HCO3 ABG Total CO2 ABG O2 Saturation ABG Base Excess Anurag Test O2 Delivery Device FiO2 % Sodium Potassium Chloride Carbon Dioxide BUN Creatinine Estimated GFR BUN/Creatinine Ratio Glucose Lactate Calcium Magnesium Total Bilirubin AST ALT Alkaline Phosphatase Total Protein Albumin Globulin Albumin/Globulin Ratio Urine Color Yellow Urine Appearance Sl cloudy Ur Specific [place] >=1.030 H Urine Protein 3+ H Urine Glucose (UA) Negative Urine Ketones Negative Urine Occult Blood Trace-intact Urine Nitrate Negative Urine Bilirubin 1+ H Ur Bilirubin Confirm Negative Urine Urobilinogen 1.0 Ur Leukocyte Esterase 1+ H Urine RBC None seen Urine WBC 10-30/hpf H Ur Squamous Epith Cells 0-1 /hpf Ur Renal Epithelial Cell 1-5/hpf H Urine Bacteria Many (>30) H Ur Culture Indicated? Specimen cultured Vol Urine Centrifuged 10ml (spun) Nasal Screen MRSA (PCR) U Opiates 300ng/mL cut Ur Oxycodone Screen Urine Methadone Screen Ur Barbiturates Screen U Tricyclic Antidepress Ur Phencyclidine Scrn Ur Amphetamines Screen U Methamphetamines Scrn Ur MDMA Scrn (Ecstasy) U Benzodiazepines Scrn Urine Cocaine Screen U Marijuana (THC) Screen Urine pH 5.5 Urine Specific [place] Ur Creatinine [facility] Medical History (Updated 03/04/25 @ 23:35 by Winston Workman MD) Scoliosis Dupuytrens contracture Surgical History (Updated 01/23/21 @ 03:08 by REMY Cui) History of thumb surgery History of tubal ligation Family History (Updated 01/23/21 @ 06:28 by REMY Cui) Father Stroke Mother Blood disease Social History household members: spouse Smoking Status: Never smoker Assessment & Plan Assessment & Plan narrative: 1. R ELIDIA subacute CVA - - continued decline over the course of the last two days. Possibly from worsening infarct. This may be development of encephalopathy from SOHA/NAGMA/heart failure as well. - will continue to discuss goals of care with spouse, he left briefly before MRI results reviewed and unable to contact - PT/OT/speech therapies if patient is more alert / recovers at this point. - consider NG feeding tube in the next 24-48 hours depending on clinical course. 2. Septic vs cardiogenic shock - now off levophed, but does require diuresis will diurese PRN this evening with 40 mg IV furosemide. Repeat BMP q12. Minimal urine output will see if there is any response to furosemide. - discussed with cardiology, if unable to tolerate diuresis due to hypotension can add dobutamine. She is not a candidate for procedural interventions. No transfer recommended. - worsening hypoxia today now on heated high flow. High likelihood of cardiac arrest with intubation, will trial maximal therapies to try and avoid intubation at this time given high likelihood of arrest, and if intubated high likelihood of need for trach/peg. - Some improvement as of this afternoon 60% FiO2 50 LPM. - with oliguria, suspect patient is not a dialysis candidate but will reach out to nephrology if it comes to that point. 3. SOHA, acute metabolic encephalopathy, acute respiratory failure with hypoxia due to #2. - continue weaver 3. Myocardial injury. Acute biventricular heart failure. Troponin was 0.56 and repeat 0.59 now downtrended - TTE findings noted below. - continue asa and plavix and statin as above when tolerating PO. - as noted above, no procedural interventions, patient is not a candidate at this time. Profound RV failure with severe pulmonary hypertension and wide-open tricuspid regurgitation. LV is small and underfilled. LV systolic function appears severely reduced. However, LV failure may be secondary to RV enlargement. Other findings as below. When compared to echo report dated 01/23/2021, RV failure has progressed. LV dysfunction is new 4. Hypertension. history of 5. Hyperlipidemia. Resume statin if able to tolerate PO, A1c 6.0%. DVT prophylaxis heparin subcu. CODE STATUS full code, surrogate decision maker not determined from patient. Daughter claims today patient is not legally . Spouse states they are. Have attempted multiple discussions with spouse given patient's poor prognosis, informed of very low likelihood of any meaningful recovery at this point given her presenting stroke and rapid deterioration, along with TTE findings and oliguria, worsening renal function. Spouse still wishes patient to be full code at this time. With available information at this time presumption is of full code. Working with case management today to help determine legal surrogate which may be daughter or spouse. May have to involve ethics as well in this situation. I spent 45 minutes providing critical care management this patient. This excludes time spent in performing separately billed procedures. I have utilized all available immediate resources to obtain, update, or review the patient's current medications. Dispo: stays in the ICU Time-Based Coding :: [TOTAL MINUTES] spent with patient and on the chart (including review of chart, obtaining history, exam, reviewing outside data, placing orders, documenting exam and treatment plan, and counseling patient) on [DATE].
[2025-03-05] MEDS: FUROSEMIDE 40 MG/4 ML VIAL IV (16:26)
--- NOTE | 2025-03-05 17:46 | PC.NURSE ---
Call from lab for hemolyzed sample drawn from L basilic midline. sluggish draw. There is some edema to the area and the limb overall however flushed well and no sign of infiltration. R AC US IV unable to draw, edematous. flushes well without sign of infiltration. New US guided 18G IV placed in R medial UA. Draws well and lab sample obtained. Dr Gordon made aware for potential need for central line.
[2025-03-05 18:01] LABS: BUN Creatinine Ratio 23.6 (6-22); Blood Urea Nitrogen 41 mg/dL (7-17); Calcium 8.4 mg/dL (8.4-10.2); Carbon Dioxide 12 mmol/L (22-32); Chloride 114 mmol/L (98-107); Estimated Glomerular Filt Rate 32 mL/min (>60); Glucose 102 mg/dL (70-99); HEMOLYSIS 25 (0-50); Potassium 4.2 mmol/L (3.4-5.1); Sodium 137 mmol/L (137-145)
--- NOTE | 2025-03-05 19:17 | PC.NURSE ---
Report given to TIFFANIE Guy NOC shift. Daughter Corina in room at bedside. Care relinquished at this time. Corina has made it clear with nursing staff that Fernando is not to be allowed back into department.
[2025-03-05] MEDS: MORPHINE 2 MG/ML INJ IV (22:48)
[2025-03-05] MEDS: SCOPOLAMINE 1 PATCH TOP (22:48)
[2025-03-06] MEDS: MORPHINE 2 MG/ML INJ IV ×5 (01:16→16:16)
--- NOTE | 2025-03-06 06:39 | PC.NURSE ---
On 03/05/2025 at around 2000H I spoke with daughter oCrina at bedside , she agreed to make the patient DNR, and on comfort measure, hospitalist on duty updated.
--- NOTE | 2025-03-06 08:37 | P.PN_ITS ---
Subjective Subjective Interval history: 64 year old female admitted with CVA initially, course complicated by likely cardiogenic shock. Please see case management note from yesterday, copied below: Per RN, Dtr Corina called [phone] and explained she lives in [place] and has estranged relationship with pt due to Sig Other Fernando and does not believe that they are legally but have been together at least 15 years. Dtr talked to MD as well and currently leaning towards more comfort focused tx. OBDULIA met bedside with pt, obtunded, and Sig Other Fernando and he states they were legally in [place] [facility] 15 years ago. Sig Other confirmed his name is spelled Fernando Loredo. Fernando had difficulty recalling information and historical data and stated I don't know whats wrong with me, I can't seem to remember anything right now after it took him a few minutes to recall the name of [facility] where they were . He states he does not think they moved or lived anywhere besides [facility] since they were . OBDULIA called [facility] Auditors office and they looked up both pt and Fernando's information and no record of marriage license/certificate. OBDULIA went online to the [facility] website and attempted to look up pt and Fernando for [facility], [facility], and [facility] and no record of marriage. OBDULIA also attempted using pt's other known last name of Delroy in those [facility] and no records of marriage. OBDULIA met bedside with Fernando again and he states he has the marriage license in their posession and OBDULIA requested he go get it and bring it to the hospital in case pt needs legal person to sign for medical care and Fernando states he will leave now and go get the copy now on their boat that is moored on [address] and bring into the hospital. OBDULIA updated MD and RN and sales warehouse driver that if Sig Other cannot provide the marriage license then Dtrs would be the legal decision makers for medical care. Evelin Cruz, AKIKO Overnight, daughter elected to proceed with comfort case as discussed with the nurse and overnight tele-hospitalist. Dr. Workman ordered the DNR and comfort measures orders overnight at around 10 pm. Patient appears imminent this morning, agonal breathing. Daughter has requested the healthcare team not to speak with patient's significant other Fernando at this time. Fernando has called the hospital for additional information per nursing staff as of this morning. As of this morning patient appeared imminent and was unresponsive, with agonal breathing. Exam Vital Signs (past 8 hours): - 03/06/25 07:00 Oxygen Delivery Method Heated High Flow Fraction of Inspired Oxygen 28 SaO2/FiO2 Ratio 328 Oxygen Delivery Method Heated High Flow Oxygen Flow Rate 50 Narrative Exam Narrative: Physical Exam: GENERAL: obtunded, agonal breathing, pale. Objective Labs 03/05/25 04:30 03/05/25 17:35 Labs: Laboratory Results - last 24 hr 03/05/25 03/05/25 03/05/25 08:28 10:26 13:30 Sodium Potassium Chloride Carbon Dioxide BUN Creatinine Estimated GFR BUN/Creatinine Ratio Glucose Lactate 2.3 H 2.5 H 1.8 Calcium Urine Color Urine Appearance Urine pH Ur Specific [place] Urine Protein Urine Glucose (UA) Urine Ketones Urine Occult Blood Urine Nitrate Urine Bilirubin Ur Bilirubin Confirm Urine Urobilinogen Ur Leukocyte Esterase Urine RBC Urine WBC Ur Squamous Epith Cells Ur Renal Epithelial Cell Urine Bacteria Ur Culture Indicated? Vol Urine Centrifuged 03/05/25 03/05/25 15:13 17:35 Sodium 137 Potassium 4.2 Chloride 114 H Carbon Dioxide 12 L BUN 41 H Creatinine 1.74 H Estimated GFR 32 L BUN/Creatinine Ratio 23.6 H Glucose 102 H Lactate Calcium 8.4 Urine Color Yellow Urine Appearance Sl cloudy Urine pH 5.5 Ur Specific [place] >=1.030 H Urine Protein 3+ H Urine Glucose (UA) Negative Urine Ketones Negative Urine Occult Blood Trace-intact Urine Nitrate Negative Urine Bilirubin 1+ H Ur Bilirubin Confirm Negative Urine Urobilinogen 1.0 Ur Leukocyte Esterase 1+ H Urine RBC None seen Urine WBC 10-30/hpf H Ur Squamous Epith Cells 0-1 /hpf Ur Renal Epithelial Cell 1-5/hpf H Urine Bacteria Many (>30) H Ur Culture Indicated? Specimen cultured Vol Urine Centrifuged 10ml (spun) [facility] Medical History (Updated 03/04/25 @ 23:35 by Winston Workman MD) Scoliosis Dupuytrens contracture Surgical History (Updated 01/23/21 @ 03:08 by REMY Cui) History of thumb surgery History of tubal ligation Family History (Updated 01/23/21 @ 06:28 by REMY Cui) Father Stroke Mother Blood disease Social History household members: spouse Smoking Status: Never smoker Assessment & Plan Assessment & Plan narrative: 1. R ELIDIA subacute CVA - 2. Septic vs cardiogenic shock 3. SOHA, acute metabolic encephalopathy, acute respiratory failure with hypoxia due to #2. 3. Myocardial injury. Acute biventricular heart failure. 4. Hypertension. history of 5. Hyperlipidemia. 6. Probable aspiration pneumonia, not present on admission. Plan: - Comfort measures only as noted above per the orders of overnight telehospitalist. - continue morphine, scopalamine patches. Consider morphine drip if patient appears in distress. DVT prophylaxis - cancel due to comfort measures only. CODE STATUS - per case management note as copied above, the patient's significant other Fernando was not considered to be patient's legal decision maker and could not produce documentation of marriage or documents granting legal decision making yesterday. Overnight ICU nurse and telehospitalist Dr. Workman discussed with daughter whom elected for DNR with comfort measures. This order was placed at 10:02 pm yesterday evening. Dispo: acute care, patient likely to in the next 24-48 hours. Time-Based Coding :: [TOTAL MINUTES] spent with patient and on the chart (including review of chart, obtaining history, exam, reviewing outside data, placing orders, documenting exam and treatment plan, and counseling patient) on [DATE].
--- NOTE | 2025-03-06 15:15 | CM.DPNOTE ---
FEDERICOP Cont Reviewed chart. Patient discussed in multidisciplinary rounds. Patient's daughter has elected for full comfort measures. Patient is not expected to survive this hospitalization. SO Fernando is no longer approved to receive updates. Daughter Corina Birch [phone] has been at bedside with other supportive friends/family members. CM team following clinical course closely . XIN
[2025-03-06] MEDS: MORPHINE 50 MG in SODIUM CHLORIDE 0.9% 45 ML IV (16:47)
--- NOTE | 2025-03-06 17:35 | PC.NURSE ---
Patient at 1726. Daughter and Daughter's father at bedside.
--- NOTE | 2025-03-06 17:48 | PM.DDS.1 ---
Discharge Summary History of Illness Narrative: Per admitting provider, 64-year-old female with past medical history of CVA with chronic left-sided weakness, hypertension, hyperlipidemia presents with slurred speech and reported right-sided weakness. Reports the patient woke up this morning was going to the bathroom assisted by her when she fell onto the right side he could not get up. The patient did call EMS but the patient refused transport and subsequently again at 2 PM the patient attempted to go to the bathroom and fell again. At that time the patient has been noted that the patient had slurred speech for not about an hour to an hour and a half. Otherwise there is no report of any recent fever, chills, nausea, vomiting, diarrhea, chest pain, syncope. Denies any head injury. In the emergency room, the patient was hemodynamically stable and patient was nonfocal on exam per ER physician. Patient CT scan of the head without contrast shows no acute finding. Chest x-ray shows small to moderate left pleural effusion with left basilar infiltrate but no pneumothorax. CT angio of the chest did not show any acute PE and only show trace bilateral pleural effusion. Initial troponin was 0.56 and repeated was 0.59. EKG shows sinus tachycardia without any ST or T wave changes. Our ER physician did call the elementary classroom teacher Dr. Gretta Multani on-call who recommended that this was most likely be related to possible stroke. However he recommended that we admit the patient and obtain MRI of the brain in the morning as well as obtaining stress echo if there is no sign of stroke. The patient was given aspirin full dose I asked her new neurological symptoms slurred speech and right-sided weakness resolved completely. Hospital Course Date of Admission: 03/05/25 05:17 Date of : 03/06/25 Consults: 03/03/25 20:52 Consult to Occupational Therapy Evaluate & Treat Comment: Physician Instructions: Evaluate and treat Consult to Physical Therapy Evaluate & Treat Comment: Physician Instructions: Evaluate and Treat 03/05/25 22:02 Consult to Discharge Planning Routine Comment: Discharge provider: Dr. Gordon Discharge Diagnosis: 1. R ELIDIA subacute CVA - 2. Septic vs cardiogenic shock 3. SOHA, acute metabolic encephalopathy, acute respiratory failure with hypoxia due to #2. 3. Myocardial injury. Acute biventricular heart failure. 4. Hypertension. history of 5. Hyperlipidemia. 6. Probable aspiration pneumonia, not present on admission. Hospital Course: 64-year-old female with past medical history of CVA with chronic left-sided weakness, hypertension, hyperlipidemia presents with slurred speech and reported right-sided weakness. She was also noted to have an elevated troponin on admission which quickly down trended. In the emergency room the provider there discussed with cardiology who thought that this was more likely a demand ischemia due to probable stroke. She became progressively more somnolent after admission. MRI showed subacute R ELIDIA infarct (unclear relation to reported R sided symptoms on presentation but does fit with current decline). She slowly became more edematous with decreasing urine output, then progressive respiratory failure requiring heated high flow. TTE showed large right sided volume overload, possibly leading to decrease EF of approximately 20%. Diuresis was attempted but was limited due to hypotension. Case was discussed with cardiology and she was not a candidate for any invasive interventions, but that she could be trialed on dobutamine assisted diuresis. She was briefly on pressor support the night before with levophed but weaned off. She was presumed to have aspirated, possibly in the setting of barium swallow evaluation recommended by speech therapy early in her stay. All while the management continued, goals of care discussions were made with patient's significant other Fernando, who stated he was her . Her poor prognosis was communicated with him, as by the time of my initial evaluation of the patient the patient was not alert enough to participate in naming a surrogate. Patient's significant other continued to wish for full code after goals of care discussions. His behavior was noted to be quite erratic by myself and hospital staff as was documented previously. He would become agitated with continued reports of bad news and her poor prognosis. Patient's daughter called on 03/05 and stated the patient was not legally . Spouse stated that he did have a marriage certificate, but could not recall when they were . Patient's friends visited and expressed they were not sure if they were legally . Spouse went home to look for marriage certificate. Case management was asked to help evaluate for appropriate surrogate decision maker, the note is documented below: Per RN, Elderr Corina called [phone] and explained she lives in [place] and has estranged relationship with pt due to Sig Other Fernando and does not believe that they are legally but have been together at least 15 years. Dtr talked to MD as well and currently leaning towards more comfort focused tx. OBDULIA met bedside with pt, obtunded, and Sig Other Fernando and he states they were legally in [facility] on [facility] 15 years ago. Sig Other confirmed his name is spelled Fernando Loredo. Fernando had difficulty recalling information and historical data and stated I don't know whats wrong with me, I can't seem to remember anything right now after it took him a few minutes to recall the name of [facility] where they were . He states he does not think they moved or lived anywhere besides [facility] since they were . OBDULIA called [facility] Auditors office and they looked up both pt and Fernando's information and no record of marriage license/certificate. OBDULIA went online to the [facility] Auditor website and attempted to look up pt and Fernando for [facility], and [facility] and no record of marriage. OBDULIA also attempted using pt's other known last name of Delroy in those [facility] and no records of marriage. OBDULIA met bedside with Fernando again and he states he has the marriage license in their posession and SW requested he go get it and bring it to the hospital in case pt needs legal person to sign for medical care and Fernando states he will leave now and go get the copy now on their boat that is moored on [facility] and bring into the hospital. OBDULIA updated MD and RN and transportation analyst that if Sig Other cannot provide the marriage license then Dtrs would be the legal decision makers for medical care. Later that evening on 03/05, the daughter discussed with the overnight MELT SUPERVISOR that she wished to proceed with comfort care measures only. This information was relayed to overnight telehospitalist Dr. Workman whom ordered the DNR and comfort measures orders overnight at around 10 pm. The following morning when this provider came on duty, the patient was demonstrating agonal breathing and her passing appeared imminent. Daughter had requested the healthcare team not to speak with patient's significant other Fernando at this time. Fernando had called the hospital for additional information per nursing staff but none were relayed per the daughter's wishes. Patient ultimately later that day at 17:26 on 03/06/2025. Time spent on discharge: > 30 minutes. Objective ECG Impression: Sinus tachycardia Left atrial enlargement Right axis deviation Right ventricular hypertrophy Possible Inferior infarct , age undetermined Anteroseptal infarct , age undetermined NO SIGNIFICANT CHANGE FROM PRIOR TRACING Labs 03/05/25 04:30 03/05/25 17:35 Labs: Laboratory Results - last 24 hr 03/05/25 17:35 Sodium 137 Potassium 4.2 Chloride 114 H Carbon Dioxide 12 L BUN 41 H Creatinine 1.74 H Estimated GFR 32 L BUN/Creatinine Ratio 23.6 H Glucose 102 H Calcium 8.4
== END 2025-03-06 17:36 | disposition expired | DRG 64 ==
LOC: ED 20:40 → AC 20:46 → ICU 03-04 14:40
PROVIDERS: Emergency Medicine; Internal Medicine; Admitting Provider Internal Medicine; Emergency Provider Family Medicine; Referring Provider Family Medicine; Visit Provider Internal Medicine
DX: I63.9 Cerebral infarction, unspecified (principal); A41.9 Sepsis, unspecified organism; G93.41 Metabolic encephalopathy; J96.01 Acute respiratory failure with hypoxia; R65.21 Severe sepsis with septic shock; J69.0 Pneumonitis due to inhalation of food and vomit; J18.9 Pneumonia, unspecified organism; I69.354 Hemiplegia and hemiparesis following cerebral infarction affecting left non-dominant side; I5A Non-ischemic myocardial injury (non-traumatic); N17.9 Acute kidney failure, unspecified; R47.81 Slurred speech; R00.0 Tachycardia, unspecified; E78.5 Hyperlipidemia, unspecified; R29.700 NIHSS score 0; R29.734 NIHSS score 34; I50.82 Biventricular heart failure; I11.0 Hypertensive heart disease with heart failure; R57.0 Cardiogenic shock; Z66 Do not resuscitate; Z51.5 Encounter for palliative care
CPT/HCPCS: 36415; 36600; 70450; 70551; 71045; 71275; 80048; 80053; 80061; 80305; 81001; 82550; 82805; 82962; 83036; 83605; 83735; 84484; 85025; 85610; 85730; 87077; 87086; 87186; 87797; 92610; 93005; 93010; 93306; 94762; 96360; 96361; 97163; 97167; 97530; 99284; 99285; G0378; J1644; J1938; J2270; J2543; J3475; Q9967